=== PATIENT | male | born 1985 | race Caucasian/White ===

== ENCOUNTER 2018-01-04 16:51 | Emergency (ER) | payer BC ==
--- NOTE | 2018-01-04 17:31 | EDM.PDOC ---
ED HPI GENERAL MEDICAL PROBLEM - General Chief Complaint: Neuro Symptoms/Deficits Stated Complaint: PT HAS NECK PAIN Time Seen by Provider: 01/04/18 17:25 Source of Information: Reports: Patient - History of Present Illness INITIAL COMMENTS - FREE TEXT/NARRATIVE: HISTORY AND PHYSICAL: []32-year-old male presenting with some generalized head/scalp tingling and weakness to his hands History of Present Illness: []This is been present for the last week off and on never completely gone today has been worse some nausea off balance. Patient was seen in one of the walk-in clinics no stitches being anxiety. He does complain of some tingling to his fingers. Patient is a smoker Denies any use of street drugs on narcotics/ no energy drinks he quit 6 months ago Review of Systems: As per history of present illness and below otherwise all systems reviewed and negative. Past medical history: As per history of present illness and as reviewed below otherwise noncontributory. Surgical history: As per history of present illness and as reviewed below otherwise noncontributory. Social history: No reported history of drug or alcohol abuse. Family history: As per history of present illness and as reviewed below otherwise noncontributory. Physical exam: HEENT: Atraumatic, normocehpalic, pupils reactive, negative for conjunctival pallor or scleral icterus, mucous membranes moist, throat clear, neck supple, nontender, trachea midline. Lungs: Clear to auscultation, breath sounds equal bilaterally, chest non tender. Heart: S1S2, regular, negative for clicks, rubs, or JVD. Abdomen: Soft, nondistended, nontender. Negative for masses or hepatossplenmegaly. Negative for costovertebral tenderness. Pelvis: Stable nontender. Genitourinary: Deferred. Rectal: Deferred Extremities: Atraumatic, negative for cords or calf pain. Neurovascular unremarkable. Neuro: Awake, alert, oriented. Cranial nerves II through XII unremarkable. Cerebellum unremarkable. Motor and sensory unremarkable throughout. Exam nonfocal. Diagnostics: []The glucose Head CT Therapeutics: [] Impression: []Anxiety Plan: [] Discharge home Refer to Dr. Beverly Referred to [facility] Definitive disposition and diagnosis as appropriate pending reevaluation and review of above. Onset: Gradual Duration: Day(s):, Getting Worse Location: Reports: Generalized Severity: Mild Improves with: Reports: None Worsens with: Reports: None Associated Symptoms: Reports: No Other Symptoms - Related Data Allergies Allergy/AdvReac Type Severity Reaction Status Date / Time No Known Allergies Allergy Verified 01/04/18 17:16 Home Meds: Home Meds . [No Known Home Meds] 01/04/18 [History] Past Medical History - Past Health History Medical/Surgical History: Denies Medical/Surgical History - Infectious Disease History Infectious Disease History: Reports: Chicken Pox Social & Family History - Family History Oncologic: Reports: Leukemia - Tobacco Use Smoking Status *Q: Current Every Day Smoker Years of Tobacco use: 15 Packs/Tins Daily: 1 - Caffeine Use Caffeine Use: Reports: None - Recreational Drug Use Recreational Drug Use: No ED ROS GENERAL - Review of Systems Review Of Systems: ROS reveals no pertinent complaints other than HPI. ED EXAM, NEURO - Physical Exam Exam: See Below (See dictation) Course - Vital Signs Last Recorded V/S: Last Vital Signs Temp 36.4 C 01/04/18 17:13 Pulse 77 01/04/18 17:13 Resp 18 01/04/18 17:13 BP 133/88 01/04/18 17:13 Pulse Ox 98 01/04/18 17:13 - Orders/Labs/Meds Orders: Active Orders 24 hr Category Date Time Status Blood Glucose Check, Bedside [RC] ONETIME Care 01/04/18 17:32 Active Head wo Cont [CT] Stat Exams 01/04/18 17:32 Taken Labs: Laboratory Tests 01/04/18 01/04/18 01/04/18 Range/Units 17:41 17:41 17:41 WBC 7.11 (4.0-11.0) K/uL RBC 4.74 (4.50-5.90) M/uL Hgb 15.6 (13.0-17.0) g/dL Hct 44.1 (38.0-50.0) % MCV 93.0 (80.0-98.0) fL MCH 32.9 H (27.0-32.0) pg MCHC 35.4 (31.0-37.0) g/dL RDW Std Deviation 46.3 (28.0-62.0) fl RDW Coeff of [place] 14 (11.0-15.0) % Plt Count 239 (150-400) K/uL MPV 8.80 (7.40-12.00) fL Neut % (Auto) 59.7 (48.0-80.0) % Lymph % (Auto) 29.7 (16.0-40.0) % [place] % (Auto) 9.3 (0.0-15.0) % Eos % (Auto) 1.0 (0.0-7.0) % Baso % (Auto) 0.3 (0.0-1.5) % Neut # (Auto) 4.3 (1.4-5.7) K/uL Lymph # (Auto) 2.1 (0.6-2.4) K/uL [place] # (Auto) 0.7 (0.0-0.8) K/uL Eos # (Auto) 0.1 (0.0-0.7) K/uL Baso # (Auto) 0.0 (0.0-0.1) K/uL Nucleated RBC % 0.0 /100WBC Nucleated RBCs # 0 K/uL Sodium 142 (136-148) mmol/L Potassium 4.1 (3.5-5.1) mmol/L Chloride 103 (98-107) mmol/L Carbon Dioxide 27.7 (21.0-32.0) mmol/L BUN 14 (7.0-18.0) mg/dL Creatinine 1.1 (0.8-1.3) mg/dL Est Cr Clr Drug Dosing 101.73 mL/min Estimated GFR (MDRD) > 60.0 ml/min Glucose 124 H (74-106) mg/dL POC Glucose 130 H (60-110) mg/dL Calcium 9.4 (8.5-10.1) mg/dL Total Bilirubin 0.5 (0.2-1.0) mg/dL AST 21 (15-37) IU/L ALT 30 (14-63) IU/L Alkaline Phosphatase 84 (46-116) U/L Total Protein 7.6 (6.4-8.2) g/dL Albumin 4.3 (3.4-5.0) g/dL Globulin 3.3 (2.0-3.5) g/dL Albumin/Globulin Ratio 1.3 (1.3-2.8) Amylase 32 (25-115) U/L Lipase 106 (73-393) U/L Departure - Departure Time of Disposition: 19:07 Disposition: Home, Self-Care 01 Condition: Good Clinical Impression: Anxiety, Weakness - Discharge Information Instructions: Weakness, [id number], Living With Anxiety, Generalized Anxiety Disorder, Adult Referrals: PCP,None [Primary Care Provider] - Ana M Beverly MD [Physician] - Forms: ED Department Discharge Additional Instructions: The following information is given to patients seen in the emergency department who are being discharged to home. This information is to outline your options for follow-up care. We provide all patients seen in our emergency department with a follow-up referral. The need for follow-up, as well as the timing and circumstances, are variable depending upon the specifics of your emergency department visit. If you don't have a primary care physician on staff, we will provide you with a referral. We always advise you to contact your personal physician following an emergency department visit to inform them of the circumstance of the visit and for follow-up with them and/or the need for any referrals to a consulting specialist. The emergency department will also refer you to a specialist when appropriate. This referral assures that you have the opportunity for followup care with a specialist. All of these measure are taken in an effort to provide you with optimal care, which includes your followup. Under all circumstances we always encourage you to contact your private physician who remains a resource for coordinating your care. When calling for followup care, please make the office aware that this follow-up is from your recent emergency room visit. If for any reason you are refused follow-up, please contact the [facility] emergency department at and asked to speak to the emergency department charge nurse. Follow-up with your primary care provider to be re-evaluated Referral has been made to Dr. Rush DEAN [facility] - Urology [address] [place] [address] Referral has been made to . [facility] Phone number [phone] [place] [id number] - My Orders Last 24 Hours: My Active Orders 01/04/18 17:32 Blood Glucose Check, Bedside [RC] ONETIME Head wo Cont [CT] Stat - Assessment/Plan Last 24 Hours: My Active Orders 01/04/18 17:32 Blood Glucose Check, Bedside [RC] ONETIME Head wo Cont [CT] Stat
[2018-01-04 18:33] LABS: CHLORIDE,CL 103 mmol/L (98-107); SODIUM,NA 142 mmol/L (136-148)
--- NOTE | 2018-01-05 15:30 | CT ---
EXAM DATE: 01/04/18 PATIENT'S AGE: 32 Patient: KEN YODER Facility: [place], [place] Site . Site : 1985 Study: CT Head [id number] 6:02:24 PM Ordering Physician: Doctor Gordon Final Report: HISTORY: Pain. TECHNIQUE: The head was scanned in the axial plane at 3 mm intervals without IV contrast. Reconstructed bone windows were obtained as well as sagittal and coronal reconstructions. FINDINGS: The paranasal sinuses and mastoid air cells are well aerated. The calvarium is intact. The ventricles and sulci are normal size, shape and position. No intra- axial mass, edema or midline shift is identified. No extra-axial fluid collections are seen. Dorsey white differentiation is preserved. IMPRESSION: No acute intracranial pathology or bleed. Dictated by Opal Shepherd MD @ 01/04/2018 6:23:44 PM Please note that all CT scans at this facility use dose modulation, iterative reconstruction, and/or weight-based dosing when appropriate to reduce radiation dose to as low as reasonably achievable. Dictated by: Opal Shepherd MD @ 01/04/2018 18:23:49 (Electronic Signature) Report Signed by Proxy. [facility]
== END 2018-01-04 19:24 | disposition home or self-care (01) ==
LOC: MW.ED 16:51
DX: F41.9 Anxiety disorder, unspecified (principal); R53.1 Weakness
CPT/HCPCS: 36415; 70450; 70450-26; 80053; 82150; 82962; 83690; 85025; 99284-25

== ENCOUNTER 2018-11-27 06:56 | Emergency (ER) | payer SELFPAY ==
[2018-11-27] MEDS ORDERED: Ibuprofen 800 MG Tab PO ONE (07:15)
--- NOTE | 2018-11-27 08:06 | CR ---
INDICATION: Punching injury. Hand swelling. COMPARISON: none TECHNIQUE: Three-view right hand FINDINGS: The bones are anatomically aligned. There is no evidence of fracture, erosion or intrinsic bone lesion. There is mild joint space narrowing within the interphalangeal joints of the fingers. The soft tissues appear normal. IMPRESSION: No fracture identified. Dictated by Job Maki MD @ Nov 27 2018 8:03AM Signed by Dr. Job Maki @ Nov 27 2018 8:04AM
--- NOTE | 2018-11-27 08:17 | EDM.PDOC ---
ED HPI GENERAL MEDICAL PROBLEM - General Chief Complaint: Upper Extremity Injury/Pain Stated Complaint: SWOLLEN RIGHT HAND Time Seen by Provider: 11/27/18 07:08 Source of Information: Reports: Patient History Limitations: Reports: No Limitations - History of Present Illness INITIAL COMMENTS - FREE TEXT/NARRATIVE: History of present illness: []Patient was punching a punching bag 2 days ago and developed right hand swelling. Review of systems: As per history of present illness and below otherwise all systems reviewed and negative. Past medical history: As per history of present illness and as reviewed below otherwise noncontributory. Surgical history: As per history of present illness and as reviewed below otherwise noncontributory. Social history: No reported history of drug or alcohol abuse. Family history: As per history of present illness and as reviewed below otherwise noncontributory. Physical exam: General: Well developed, well nourished in NAD HEENT: Atraumatic, normocephalic, pupils reactive, negative for conjunctival pallor or scleral icterus, mucous membranes moist, throat clear, neck supple, nontender, trachea midline. Lungs: Clear to auscultation, breath sounds equal bilaterally, chest nontender. Heart: S1S2, regular, negative for clicks, rubs, or JVD. Abdomen: NABS, Soft, nondistended, nontender. Negative for masses or hepatosplenomegaly. Negative for costovertebral tenderness. Pelvis: Stable nontender. Genitourinary: Deferred. Rectal: Deferred. Extremities: Right dorsal hand with swelling and mild erythema that does not spread proximally. Moves all fingers and sensation is intact., negative for cords or calf pain. Neurovascular unremarkable. Neuro: Awake, alert, oriented. Cranial nerves II through XII unremarkable. Cerebellum unremarkable. Motor and sensory unremarkable throughout. Exam nonfocal. Skin:warm and dry Diagnostics: X-ray hand no fracture Therapeutics: Ibuprofen for pain ED Course: Unremarkable Impression: Right hand contusion Prescriptions: None Plan: Ibuprofen, ice, elevation and follow up with primary care as needed. Return to ER if symptoms worsen or change. Definitive disposition and diagnosis as appropriate pending reevaluation and review of above. right hand Pain Score (Numeric/FACES): 5 - Related Data Allergies Allergy/AdvReac Type Severity Reaction Status Date / Time No Known Allergies Allergy Verified 11/27/18 07:12 Home Meds: Home Meds . [No Known Home Meds] 01/04/18 [History] Past Medical History - Past Health History Medical/Surgical History: Denies Medical/Surgical History Cardiovascular History: Reports: None Respiratory History: Reports: None Gastrointestinal History: Reports: None Genitourinary History: Reports: None Musculoskeletal History: Reports: None Neurological History: Reports: None Psychiatric History: Reports: None Endocrine/Metabolic History: Reports: None Dermatologic History: Reports: None - Infectious Disease History Infectious Disease History: Reports: None Social & Family History - Family History Family Medical History: Noncontributory Oncologic: Reports: Leukemia - Tobacco Use Smoking Status *Q: Current Every Day Smoker Years of Tobacco use: 20 Packs/Tins Daily: 1 - Caffeine Use Caffeine Use: Reports: None - Recreational Drug Use Recreational Drug Use: No Review of Systems - Review of Systems Review Of Systems: ROS reveals no pertinent complaints other than HPI. ED EXAM, GENERAL - Physical Exam Exam: See Below (See history of present illness) Course - Vital Signs Last Recorded V/S: Last Vital Signs Temp 97.8 F 11/27/18 08:27 Pulse 82 11/27/18 08:27 Resp 18 11/27/18 08:27 BP 140/80 11/27/18 08:27 Pulse Ox 95 11/27/18 08:27 - Orders/Labs/Meds Meds: Medications Discontinued Medications Generic Name Dose Route Start Last Admin Trade Name Kim PRN Reason Stop Dose Admin Ibuprofen 800 mg 11/27/18 07:15 11/27/18 07:20 Motrin PO 11/27/18 07:16 800 mg ONETIME ONE Administration Departure - Departure Time of Disposition: 08:15 Disposition: Home, Self-Care 01 Condition: Good Clinical Impression: Contusion of right hand Qualifiers: Encounter type: initial encounter Qualified Code(s): S60.221A - Contusion of right hand, initial encounter - Discharge Information *PRESCRIPTION DRUG MONITORING PROGRAM REVIEWED*: No *COPY OF PRESCRIPTION DRUG MONITORING REPORT IN PATIENT TONY: No Instructions: Hand Contusion Referrals: PCP,None [Primary Care Provider] - Forms: ED Department Discharge Additional Instructions: The following information is given to patients seen in the emergency department who are being discharged to home. This information is to outline your options for follow-up care. We provide all patients seen in our emergency department with a follow-up referral. The need for follow-up, as well as the timing and circumstances, are variable depending upon the specifics of your emergency department visit. If you don't have a primary care physician on staff, we will provide you with a referral. We always advise you to contact your personal physician following an emergency department visit to inform them of the circumstance of the visit and for follow-up with them and/or the need for any referrals to a consulting specialist. The emergency department will also refer you to a specialist when appropriate. This referral assures that you have the opportunity for follow-up care with a specialist. All of these measure are taken in an effort to provide you with optimal care, which includes your follow-up. Under all circumstances we always encourage you to contact your private physician who remains a resource for coordinating your care. When calling for follow-up care, please make the office aware that this follow-up is from your recent emergency room visit. If for any reason you are refused follow-up, please contact the [facility] Emergency Department at and asked to speak to the emergency department charge nurse. Elevate hand above the level of your heart as much as possible, ice and ibuprofen for pain and swelling, follow up with primary if no improvement. Return if symptoms worsen. [facility] [address] [place] [phone]
== END 2018-11-27 08:35 | disposition home or self-care (01) ==
LOC: MW.ED 06:56
DX: S60.221A Contusion of right hand, initial encounter (principal); F17.210 Nicotine dependence, cigarettes, uncomplicated; W22.8XXA Striking against or struck by other objects, initial encounter
CPT/HCPCS: 73130; 99283; A9270

== ENCOUNTER 2019-01-08 15:12 | Emergency (ER) | payer SELFPAY ==
[2019-01-08] MEDS ORDERED: Ibuprofen 800 MG Tab PO ONE (15:43)
--- NOTE | 2019-01-08 15:46 | EDM.PDOC ---
ED HPI GENERAL MEDICAL PROBLEM - General Chief Complaint: General Stated Complaint: feeling "stiff" Time Seen by Provider: 01/08/19 15:13 Source of Information: Reports: Patient History Limitations: Reports: No Limitations - History of Present Illness INITIAL COMMENTS - FREE TEXT/NARRATIVE: History of present illness: []Patient has been off work for 2 weeks started working again today. He states that his whole body feels "stiff" and his kidneys feels stiff. He thinks his potassium dose not normal. He denies any history of abnormal potassium levels or kidney disease, he did have diarrhea 3 episodes this morning with no vomiting. Patient states he drank Alcohol this weekend but not anything unusual. Review of systems: As per history of present illness and below otherwise all systems reviewed and negative. Past medical history: As per history of present illness and as reviewed below otherwise noncontributory. Surgical history: As per history of present illness and as reviewed below otherwise noncontributory. Social history: No reported history of drug or alcohol abuse. Family history: As per history of present illness and as reviewed below otherwise noncontributory. Physical exam: General: Well developed, well nourished in NAD HEENT: Atraumatic, normocephalic, pupils reactive, negative for conjunctival pallor or scleral icterus, mucous membranes moist, throat clear, neck supple, nontender, trachea midline. Lungs: Clear to auscultation, breath sounds equal bilaterally, chest nontender. Heart: S1S2, regular, negative for clicks, rubs, or JVD. Abdomen: NABS, Soft, nondistended, nontender. Negative for masses or hepatosplenomegaly. Negative for costovertebral tenderness. Pelvis: Stable nontender. Genitourinary: Deferred. Rectal: Deferred. Extremities: Atraumatic, negative for cords or calf pain. Neurovascular unremarkable. Neuro: Awake, alert, oriented. Cranial nerves II through XII unremarkable. Cerebellum unremarkable. Motor and sensory unremarkable throughout. Exam nonfocal. Skin:warm and dry Diagnostics: Chem, normal potassium Therapeutics: Ibuprofen ED Course: Stable Impression: Encounter for medical screening exam Whole body stiffness Prescriptions: None Plan: Follow-up with primary care, ibuprofen for pain Definitive disposition and diagnosis as appropriate pending reevaluation and review of above. Body Aches Pain Score (Numeric/FACES): 5 - Related Data Allergies Allergy/AdvReac Type Severity Reaction Status Date / Time No Known Allergies Allergy Verified 01/08/19 15:23 Home Meds: Home Meds . [No Known Home Meds] 01/04/18 [History] Past Medical History - Past Health History Medical/Surgical History: Denies Medical/Surgical History Cardiovascular History: Reports: None Respiratory History: Reports: None Gastrointestinal History: Reports: None Genitourinary History: Reports: None Musculoskeletal History: Reports: None Neurological History: Reports: None Psychiatric History: Reports: None Endocrine/Metabolic History: Reports: None Dermatologic History: Reports: None - Infectious Disease History Infectious Disease History: Reports: Chicken Pox Social & Family History - Family History Family Medical History: Noncontributory Oncologic: Reports: Leukemia - Tobacco Use Smoking Status *Q: Current Every Day Smoker Years of Tobacco use: 20 Packs/Tins Daily: 1 - Caffeine Use Caffeine Use: Reports: Coffee, Energy Drinks, Soda - Recreational Drug Use Recreational Drug Use: No ED ROS GENERAL - Review of Systems Review Of Systems: ROS reveals no pertinent complaints other than HPI. ED EXAM, GENERAL - Physical Exam Exam: See Below (History of present illness) Course - Vital Signs Last Recorded V/S: Last Vital Signs Temp 97.7 F 01/08/19 15:23 Pulse 78 01/08/19 15:23 Resp 18 01/08/19 15:23 BP 161/88 H 01/08/19 15:23 Pulse Ox 98 01/08/19 15:23 - Orders/Labs/Meds Labs: Laboratory Tests 01/08/19 Range/Units 15:51 Sodium 139 (136-148) mmol/L Potassium 4.1 (3.5-5.1) mmol/L Chloride 102 (98-107) mmol/L Carbon Dioxide 25.1 (21.0-32.0) mmol/L BUN 9 (7.0-18.0) mg/dL Creatinine 0.9 (0.8-1.3) mg/dL Est Cr Clr Drug Dosing 123.18 mL/min Estimated GFR (MDRD) > 60.0 ml/min Glucose 111 H (74-106) mg/dL Calcium 9.2 (8.5-10.1) mg/dL Meds: Medications Discontinued Medications Generic Name Dose Route Start Last Admin Trade Name Freq PRN Reason Stop Dose Admin Ibuprofen 800 mg 01/08/19 15:43 01/08/19 15:55 Motrin PO 01/08/19 15:44 800 mg ONETIME ONE Administration Departure - Departure Time of Disposition: 16:27 Disposition: Home, Self-Care 01 Condition: Good Clinical Impression: Encounter for medical screening examination - Discharge Information *PRESCRIPTION DRUG MONITORING PROGRAM REVIEWED*: No *COPY OF PRESCRIPTION DRUG MONITORING REPORT IN PATIENT TONY: No Referrals: PCP,Unknown [Primary Care Provider] - Forms: ED Department Discharge Additional Instructions: The following information is given to patients seen in the emergency department who are being discharged to home. This information is to outline your options for follow-up care. We provide all patients seen in our emergency department with a follow-up referral. The need for follow-up, as well as the timing and circumstances, are variable depending upon the specifics of your emergency department visit. If you don't have a primary care physician on staff, we will provide you with a referral. We always advise you to contact your personal physician following an emergency department visit to inform them of the circumstance of the visit and for follow-up with them and/or the need for any referrals to a consulting specialist. The emergency department will also refer you to a specialist when appropriate. This referral assures that you have the opportunity for follow-up care with a specialist. All of these measure are taken in an effort to provide you with optimal care, which includes your follow-up. Under all circumstances we always encourage you to contact your private physician who remains a resource for coordinating your care. When calling for follow-up care, please make the office aware that this follow-up is from your recent emergency room visit. If for any reason you are refused follow-up, please contact the [facility] Emergency Department at and asked to speak to the emergency department charge nurse. [facility] [address] [place] [phone]
[2019-01-08 16:17] LABS: CHLORIDE,CL 102 mmol/L (98-107); SODIUM,NA 139 mmol/L (136-148)
== END 2019-01-08 16:42 | disposition home or self-care (01) ==
LOC: MW.ED 15:12
DX: M25.60 Stiffness of unspecified joint, not elsewhere classified (principal)
CPT/HCPCS: 36415; 80048; 99283; A9270

== ENCOUNTER 2019-09-23 00:38 | Emergency (ER) | payer SELFPAY ==
[2019-09-23] MEDS ORDERED: Lidocaine 2% Viscous Solution 15 ML Cup PO ONE (00:59)
[2019-09-23] MEDS ORDERED: Benzocaine 20% Topical Spray UD MUCMEM ONE (00:59)
[2019-09-23] MEDS ORDERED: Ketorolac 60 MG/2 ML SDV IM ONE (01:00)
--- NOTE | 2019-09-23 01:06 | EDM.PDOC ---
ED HPI GENERAL MEDICAL PROBLEM - General Chief Complaint: General Stated Complaint: TOOTH PAIN Time Seen by Provider: 09/23/19 00:41 - History of Present Illness INITIAL COMMENTS - FREE TEXT/NARRATIVE: HISTORY AND PHYSICAL: History of present illness: Patient is a 34-year-old male who knew that he had a cavity on his right lower premolar and was waiting to get dental insurance to have it either filled or pulled and presents with 1 day of pain to the area. He says it just started and he has taken 1 dose of ibuprofen, he is not sure if it was 400 or 600 mg, and is asking that I pulled the tooth. He has not tried to connect with a local dentist and says he lives here but does not have a local dentist. He has been otherwise having no systemic issues such as fever chills posterior oropharyngeal pain swollen glands swelling to his face or any chest pain shortness of breath upper respiratory symptoms abdominal pain nausea or vomiting. Review of systems: As per history of present illness and below otherwise all systems reviewed and negative. Past medical history: As per history of present illness and as reviewed below otherwise noncontributory. Surgical history: As per history of present illness and as reviewed below otherwise noncontributory. Social history: No reported history of drug or alcohol abuse. Family history: As per history of present illness and as reviewed below otherwise noncontributory. Physical exam: General: Well-developed well-nourished man who is nontoxic and there is minimal visible swelling of the right mandibular area. He is very exaggerated in the ED and repeatedly asked me to pull the tooth. Vital signs are noted by me HEENT: Atraumatic, normocephalic, pupils reactive, negative for conjunctival pallor or scleral icterus, mucous membranes moist, throat clear, neck supple, nontender, trachea midline. There is no posterior oropharyngeal swelling or erythema no cervical adenopathy or nuchal rigidity and there is a cavity seen on the anterior aspect of the right lower premolar. There is no gross swelling of the surrounding gum or tenderness to the gumline. Lungs: Clear to auscultation, breath sounds equal bilaterally, chest nontender. Heart: S1S2, regular rate and rhythm no overt murmurs Abdomen: Soft, nondistended, nontender no active bowel sounds Pelvis: deferred Genitourinary: Deferred. Rectal: Deferred. Extremities: Atraumatic, range of motion without deficits neurovascular unremarkable. Neuro: Awake, alert, oriented. Cranial nerves II through XII unremarkable. Cerebellum unremarkable. Motor and sensory unremarkable throughout. Exam nonfocal. Diagnostics: [] Therapeutics: dental balls,, Toradol IM I discussed with the patient that we do not pull teeth here in the ED and that I will give him a list of resources for local dentist to get definitive care and treatment of this dental cavity. At this point there is no gross swelling of the gumline but I will place him on antibiotics as prophylaxis for an infection and have given him dental balls and Toradol here. I advised him that he needs to take the jsrq-dvn-swurdff Advil more regularly 600 to 800 mg every 6 -8 hours and I will give him a few Tylenol with codeine for home to tide him over as well. Impression: Pain and dental caries Definitive disposition and diagnosis as appropriate pending reevaluation and review of above. R lower wisdom Pain Score (Numeric/FACES): 10 - Related Data Allergies Allergy/AdvReac Type Severity Reaction Status Date / Time No Known Allergies Allergy Verified 09/23/19 00:57 Home Meds: Home Meds . [No Known Home Meds] 01/04/18 [History] Past Medical History - Past Health History Medical/Surgical History: Denies Medical/Surgical History Cardiovascular History: Reports: None Respiratory History: Reports: None Gastrointestinal History: Reports: None Genitourinary History: Reports: None Musculoskeletal History: Reports: None Neurological History: Reports: None Psychiatric History: Reports: None Endocrine/Metabolic History: Reports: None Dermatologic History: Reports: None - Infectious Disease History Infectious Disease History: Reports: Chicken Pox Social & Family History - Family History Family Medical History: Noncontributory Oncologic: Reports: Leukemia - Caffeine Use Caffeine Use: Reports: Coffee, Energy Drinks, Soda ED ROS GENERAL - Review of Systems Review Of Systems: Comprehensive ROS is negative, except as noted in HPI. ED EXAM, GENERAL - Physical Exam Exam: See Below (see Dictation) Course - Vital Signs Last Recorded V/S: Last Vital Signs Temp 35.9 C 09/23/19 00:50 Pulse 89 09/23/19 00:50 Resp 18 09/23/19 00:50 BP 115/68 09/23/19 00:50 Pulse Ox 98 09/23/19 00:50 - Orders/Labs/Meds Orders: Active Orders 24 hr Category Date Time Status Ketorolac [Toradol] Med 09/23/19 01:00 Once 60 mg IM ONETIME ONE Medication Orders Ketorolac Tromethamine (Toradol) 60 mg IM ONETIME ONE Stop: 09/23/19 01:01 Meds: Medications Generic Name Dose Route Start Last Admin Trade Name Freq PRN Reason Stop Dose Admin Ketorolac Tromethamine 60 mg 09/23/19 01:00 Toradol IM 09/23/19 01:01 ONETIME ONE Discontinued Medications Generic Name Dose Route Start Last Admin Trade Name Freq PRN Reason Stop Dose Admin Benzocaine 2 each 09/23/19 00:59 Hurricaine One 20% MUCMEM 09/23/19 01:00 ONETIME ONE Lidocaine HCl 15 ml 09/23/19 00:59 Xylocaine 2% Viscous PO 09/23/19 01:00 ONETIME ONE Departure - Departure Time of Disposition: 01:06 Disposition: Home, Self-Care 01 Condition: Good Clinical Impression: Pain due to dental caries - Discharge Information Referrals: PCP,None [Primary Care Provider] - Additional Instructions: The following information is given to patients seen in the emergency department who are being discharged to home. This information is to outline your options for follow-up care. We provide all patients seen in our emergency department with a follow-up referral. The need for follow-up, as well as the timing and circumstances, are variable depending upon the specifics of your emergency department visit. If you don't have a primary care physician on staff, we will provide you with a referral. We always advise you to contact your personal physician following an emergency department visit to inform them of the circumstance of the visit and for follow-up with them and/or the need for any referrals to a consulting specialist. The emergency department will also refer you to a specialist when appropriate. This referral assures that you have the opportunity for followup care with a specialist. All of these measure are taken in an effort to provide you with optimal care, which includes your followup. Under all circumstances we always encourage you to contact your private physician who remains a resource for coordinating your care. When calling for followup care, please make the office aware that this follow-up is from your recent emergency room visit. If for any reason you are refused follow-up, please contact the [facility] emergency department at and ask to speak to the emergency department charge nurse. [facility] Primary care- Internal Medicine and Family [address] [address] Use ice to face for any swelling and please take the amoxicillin you have been given from [facility] for infection prevention as this tooth is susceptible to getting infected. Use [id number]-qkcxexm Motrin/ibuprofen 600 to 800 mg every 6- 8 hours and also use tmbo-nbc-[id number] Tylenol as you choose. You have also been given some Tylenol with codeine from [facility] that you can use for breakthrough pain but only take this medication when you are at home as it may make you drowsy and you should not drive a car or go to work while taking this. If you take the Tylenol with codeine do not take [id number]-[id number] Tylenol. Please connect with 1 of our local dentist using resources given to you in the emergency department to get definitive care and treatment of this problem and return to ER as needed and as discussed Sepsis Event Note - Evaluation Sepsis Screening Result: No Definite Risk - Focused Exam Vital Signs: Vital Signs Temp Pulse Resp BP Pulse Ox 09/23/19 00:50 35.9 C 89 18 115/68 98 Date Exam was Performed: 09/23/19 Time Exam was Performed: 01:01 - My Orders Last 24 Hours: My Active Orders 09/23/19 01:00 Ketorolac [Toradol] 60 mg IM ONETIME ONE - Assessment/Plan Last 24 Hours: My Active Orders 09/23/19 01:00 Ketorolac [Toradol] 60 mg IM ONETIME ONE
== END 2019-09-23 01:43 | disposition home or self-care (01) ==
LOC: MW.ED 00:38
DX: K02.9 Dental caries, unspecified (principal)
CPT/HCPCS: 96372; 99283; A9270; J1885

== ENCOUNTER 2019-10-31 03:54 | Emergency (ER) | payer SELFPAY ==
[2019-10-31] MEDS ORDERED: Ondansetron 4 MG Tab.DIS PO ONE (04:15)
--- NOTE | 2019-10-31 04:35 | EDM.PDOC ---
ED HPI GENERAL MEDICAL PROBLEM - General Chief Complaint: Gastrointestinal Problem Stated Complaint: VOMITING Time Seen by Provider: 10/31/19 04:20 Source of Information: Reports: Patient, Significant Other - History of Present Illness INITIAL COMMENTS - FREE TEXT/NARRATIVE: The patient is a healthy 34-year-old male who presents to the ER for nausea and vomiting. He has been throwing up for almost 10 straight hours. No diarrhea, no fevers, no hematemesis, no syncope or near syncope, no abdominal pain or any other acute complaints. Upper Abdomen Pain Score (Numeric/FACES): 10 - Related Data Allergies Allergy/AdvReac Type Severity Reaction Status Date / Time No Known Allergies Allergy Verified 10/31/19 04:06 Home Meds: Home Meds . [No Known Home Meds] 01/04/18 [History] Past Medical History - Past Health History Medical/Surgical History: Denies Medical/Surgical History Cardiovascular History: Reports: None Respiratory History: Reports: None Gastrointestinal History: Reports: None Genitourinary History: Reports: None Musculoskeletal History: Reports: None Neurological History: Reports: None Psychiatric History: Reports: None Endocrine/Metabolic History: Reports: None Dermatologic History: Reports: None - Infectious Disease History Infectious Disease History: Reports: Chicken Pox - Past Surgical History Other GI Surgeries/Procedures: vomiting blood tonight 10/31/19 Social & Family History - Family History Family Medical History: Noncontributory Oncologic: Reports: Leukemia - Tobacco Use Smoking Status *Q: Current Every Day Smoker Years of Tobacco use: 20 Packs/Tins Daily: 1 - Caffeine Use Caffeine Use: Reports: Coffee, Energy Drinks, Soda - Alcohol Use Days Per Week of Alcohol Use: 7 Number of Drinks Per Day: 2 Total Drinks Per Week: 14 - Recreational Drug Use Recreational Drug Use: No ED ROS GENERAL - Review of Systems Review Of Systems: See Below (Positive for nausea vomiting, negative for abdominal pain, negative for diarrhea, negative for fevers, negative for chills , all other Positives and pertinent negatives as per HPI. All other pertinent systems were reviewed and are negative) ED EXAM, GI/ABD - Physical Exam Exam: See Below Text/Narrative:: Constitutional: Smells of alcohol, Nontoxic but looks like he does not feel well as he is retching into a bag HEENT: Normocephalic, Atraumatic, PERRL, EOMI Neck: Normal range of motion, No stridor, trachea midline Respiratory: No respiratory distress, No tachypnea Cardiovascular: Deferred Gastrointestinal: Abdomen is soft and nontender Genital / Urinary: Deferred Musculoskeletal: All four extremities present and atraumatic Back: FROM Integument: Warm, Dry, Color is ethnicity appropriate, No rash. Neuro: Alert, Awake, No focal deficits noted Psych: Affect, Judgement, mood normal Course - Vital Signs Text/Narrative:: The patient was given a Zofran ODT tablet but he was unable to keep it in his mouth as he kept retching so he was given Zofran 8 mg IM. The patient is not feeling well but he has not vomited since he received Zofran and has kept down some fluid so he will be discharged with a prescription. Last Recorded V/S: Last Vital Signs Temp 36.2 C 10/31/19 04:01 Pulse 73 10/31/19 05:05 Resp 19 10/31/19 05:05 BP 128/85 10/31/19 05:05 Pulse Ox 96 10/31/19 05:05 - Orders/Labs/Meds Meds: Medications Discontinued Medications Generic Name Dose Route Start Last Admin Trade Name Freq PRN Reason Stop Dose Admin Ondansetron HCl 4 mg 10/31/19 04:15 10/31/19 04:23 Zofran Odt PO 10/31/19 04:16 4 mg ONETIME ONE Administration Ondansetron HCl 8 mg 10/31/19 04:40 10/31/19 04:44 Zofran IM 10/31/19 04:41 8 mg ONETIME ONE Administration Departure - Departure Time of Disposition: 05:25 Disposition: Home, Self-Care 01 Condition: Good Clinical Impression: Vomiting - Discharge Information *PRESCRIPTION DRUG MONITORING PROGRAM REVIEWED*: Not Applicable *COPY OF PRESCRIPTION DRUG MONITORING REPORT IN PATIENT TONY: Not Applicable Instructions: Nausea and Vomiting, Adult, [id number] Referrals: PCP,None [Primary Care Provider] - Forms: ED Department Discharge Sepsis Event Note - Evaluation Sepsis Screening Result: No Definite Risk - Focused Exam Vital Signs: Vital Signs Temp Pulse Resp BP Pulse Ox 10/31/19 05:05 73 19 128/85 96 10/31/19 04:01 36.2 C 90 18 137/80 98 Date Exam was Performed: 10/31/19 Time Exam was Performed: 05:07
[2019-10-31] MEDS ORDERED: Ondansetron 4 MG/2 ML SDV IM ONE (04:40)
[2019-10-31] MEDS ORDERED: CEFTRIAXONE IM ONE (04:44)
[2019-10-31] MEDS ORDERED: LIDOCAINE 1% IM ONE (04:44)
== END 2019-10-31 05:33 | disposition home or self-care (01) ==
LOC: MW.ED 03:54
DX: R11.2 Nausea with vomiting, unspecified (principal); F17.210 Nicotine dependence, cigarettes, uncomplicated
CPT/HCPCS: 96372; 99283; A9270; J2405

== ENCOUNTER 2019-10-31 09:09 | Emergency (ER) | payer SELFPAY ==
--- NOTE | 2019-10-31 09:36 | EDM.PDOC ---
ED [facility] GENERAL MEDICAL PROBLEM - General Chief Complaint: General Stated Complaint: DEHYDRATED Time Seen by Provider: 10/31/19 09:17 - History of Present Illness INITIAL COMMENTS - FREE TEXT/NARRATIVE: HPI 34-year-old male presents complaining of dehydration, patient reports he drink heavily yesterday, vomited throughout the day, and had resolution symptoms after in ED evaluation during which he received Zofran, patient is now taking PO and producing urine at near baseline. No fevers, chills, continues pass flatus and stool at baseline. No abdominal pain. No history of complications from alcohol withdrawal. Patient reports poorly characterized mild diffuse MSK type stiffness. No focal complaints. M/S/F/SocHx notable for: please see HPI; remainder reviewed with patient and in chart. ROS: Negative constitutional, eye, cardiovascular, pulmonary, GI, , MSK, skin , neurologic, psychiatric, endocrine unless noted in the HPI. Exam HR 79, RR 16, BP 142/86, T 36.6C, SaO2 97% on room air. Gen: Pleasant, non-toxic appearing, resting comfortably. HEENT: NC, AT, PEERL, EOMI. Oropharynx visually normal, moist mucous membranes. Resp: Clear to auscultation bilaterally, normal work of breathing, no accessory muscle usage. Card: Regular rate and rhythm with no murmurs, rubs, or gallops, extremities warm and well perfused. GI: Non-tender to palpation throughout all quadrants, no focal tenderness at McBurney's point, negative Price's sign, non-distended, no rebound or guarding. : No suprapubic tenderness to palpation. MSK: No visible deformities, strength and tone without visually appreciable deficit. Comfortably ambulatory without discernible abnormalities. Skin: Normal color with no visible lesions. Normal turgor. Neuro: alert and oriented 3, no facial asymmetry, vision and hearing WNL. Psych: markedly unusual mood and affect. MDM Previous chart, nursing note, labs, imaging, and vitals reviewed. A: 34-year-old male presents complaining of dehydration, patient reports he drink heavily yesterday, vomited throughout the day, and had resolution symptoms after in ED evaluation during which he received Zofran, patient is now taking PO and producing urine at near baseline. DDx: dehydration, electrolyte abnormalities, alcohol withdrawal, anxiety. Evaluation: patient well-appearing, clinically euvolemic on exam, and vitals WNL. Given the lack of medical comorbidities, short - and apparently self- limited - period of emesis yesterday, laboratory studies are not presently indicated. Recommend ongoing PO intake. No features suggestive of clinically significant alcohol withdrawal. Patient appears markedly anxious, this may be contributing to his concerns regarding dehydration. No features on exam to suggest complications such as Boorehaves syndrome. Abdominal exam benign. No evidence of obstruction or surgical intrabdominal process. Given the patients overall appearance, clinical trajectory, and vital signs, there is no evidence of occult bacteremia/sepsis. Patient discharged with instructions to remain well hydrated, avoid alcohol consumption, and follow-up with his PCP. Impression: nausea and vomiting. - Related Data Allergies Allergy/AdvReac Type Severity Reaction Status Date / Time No Known Allergies Allergy Verified 10/31/19 09:17 Home Meds: Home Meds . [No Known Home Meds] 01/04/18 [History] Past Medical History - Past Health History Medical/Surgical History: Denies Medical/Surgical History Cardiovascular History: Reports: None Respiratory History: Reports: None Gastrointestinal History: Reports: None Genitourinary History: Reports: None Musculoskeletal History: Reports: None Neurological History: Reports: None Psychiatric History: Reports: None Endocrine/Metabolic History: Reports: None Dermatologic History: Reports: None - Infectious Disease History Infectious Disease History: Reports: Chicken Pox - Past Surgical History Other GI Surgeries/Procedures: vomiting blood tonight 10/31/19 Social & Family History - Family History Family Medical History: Noncontributory Oncologic: Reports: Leukemia - Tobacco Use Smoking Status *Q: Current Every Day Smoker Years of Tobacco use: 1 Packs/Tins Daily: 20 - Caffeine Use Caffeine Use: Reports: Coffee, Energy Drinks, Soda, Tea - Recreational Drug Use Recreational Drug Use: No ED ROS GENERAL - Review of Systems Review Of Systems: See Below ED EXAM, GENERAL - Physical Exam Exam: See Below Course - Vital Signs Last Recorded V/S: Last Vital Signs Temp 36.6 C 10/31/19 09:14 Pulse 79 10/31/19 09:14 Resp 16 10/31/19 09:14 BP 142/86 H 10/31/19 09:14 Pulse Ox 97 10/31/19 09:14 Departure - Departure Time of Disposition: 09:35 Disposition: Home, Self-Care 01 Clinical Impression: Nausea & vomiting - Discharge Information Referrals: PCP,None [Primary Care Provider] - Additional Instructions: You were in seen in the [facility] Emergency Department for evaluation of possible dehydration. No significant dehydration was noted at the time of your exam, please stay well-hydrated to produce light urine every 3-4 hours. You may to consume water, have strength catering, or Pedialyte for rehydration. Please avoid consuming alcohol. Please read and follow all of the instructions below. Please follow up with your primary care physician within 48 hours repeat evaluation further care as needed. When calling for follow-up care, please make the office aware that this follow-up is from your recent emergency room visit. If for any reason you are refused follow-up, please contact the [facility] Emergency Department at and asked to speak to the emergency department charge nurse. Your care today was limited to identifying and treating emergent medical problems only. Many people have subtle differences in their test results that require follow up with their outpatient physician(s) to correctly determine if this represents a normal variation or concerning abnormality with respect to your specific health. The care given to you today was limited to identifying and treating emergent medical problems - you need to request a copy of all of your medical records from today's visit and follow up with your outpatient physician(s) to review both today's visit and your overall health. If you have any new symptoms or if you are at all concerned about your health please return immediately to the emergency department. Prescriptions: If you are uninsured or have financial difficulties with filling your prescription(s), you may consider using a free pharmacy discount service such as [employer] ([employer]) or [employer] ([employer]). These services allow you to search for a medication on your phone (or computer) and obtain a coupon that usually has a significant discount from the list pavon at a pharmacy. Your physician as well as [facility] does not have a financial relationship with either of these services. You may also wish to speak with your physician to determine if lower cost prescriptions are possible. Obtaining primary care: 1. [facility] provides pediatrics (children), family medicine (children, adults, and some obstetrical care), and internal medicine (adults). Further specialty care is also available. Same day appointments are available. They may be contacted at [phone] and are open Tuesday through Tuesday 8 AM to 5 PM. The [facility] clinics are located at [facility], [address] [place], [place] [address]. 2. [facility] offers family medicine, internal medicine, womens health, and further specialty care. [facility] may be contacted at [phone]. [facility] is located at [address] [place], [address]. 3. If you have health insurance, please also contact your insurer for a list of accepting providers under your policy, you may contact these providers for further health care. Occupational health: Work related injuries may consider following up with [facility], . Occupational health services are located at [address] [place] [address] and are open Tuesday through Tuesday from 7: 30 am to 5:00 pm. Obstetrical and Gynecological Care: [facility], , Tuesday through Tuesday 8 AM to 5 PM. [address] [facility] [place] [address]. Eyecare: If you have an eye injury you should follow up with your acting manager or with [facility], at [phone] or [phone] , they are located at [address] [place] [address]. Dental Care Kendrick Warren DDS. [address] [facility] [place], [place]. Ph. [phone] Ed Warren DDS MS. [address] [facility] [address], [place], [place]. Ph. [phone] Kenyon Wilkins DDS. 10 08/30 [facility] [place]. Ph. [phone] Rg Benson DDS. [address] [facility] 4 [place], [place]. Ph. [phone] Marc Sales DDS PC. [address] [place] [address] [address] [place], [place]. Ph. Danya Mcdaniel DDS. [address] [facility]. Ph. [phone] [facility] Dental [facility]. [address] [place], [place]. Ph. [phone] [facility]. [address] [place] [address], [place]. Ph. [phone] [facility] [address] [place] [address]. Ph. [facility]. [address] [place] [address] [address] [place]. Ph. [facility]. [address], [place], [place]. Ph. Sepsis Event Note - Evaluation Sepsis Screening Result: No Definite Risk - Focused Exam Vital Signs: Vital Signs Temp Pulse Resp BP Pulse Ox 10/31/19 09:14 36.6 C 79 16 142/86 H 97 Date Exam was Performed: 10/31/19 Time Exam was Performed: 09:35
== END 2019-10-31 09:45 | disposition home or self-care (01) ==
LOC: MW.ED 09:09
DX: R11.2 Nausea with vomiting, unspecified (principal); F17.210 Nicotine dependence, cigarettes, uncomplicated
CPT/HCPCS: 99283

== ENCOUNTER 2019-10-31 13:06 | Emergency (ER) | payer SELFPAY ==
[2019-10-31] MEDS ORDERED: Sodium Chloride 0.9% 1,000 ML IV ONE (13:29)
[2019-10-31] MEDS ORDERED: Ketorolac 30 MG/ML SDV IVPUSH ONE (13:29)
--- NOTE | 2019-10-31 13:54 | EDM.PDOC ---
ED [facility] GENERAL MEDICAL PROBLEM - General Chief Complaint: Abdominal Pain Stated Complaint: ABDOMINAL PAIN Time Seen by Provider: 10/31/19 13:16 - History of Present Illness INITIAL COMMENTS - FREE TEXT/NARRATIVE: HPI 34-year-old male with no known pertinent past medical history presents complaining of muscle aches and myalgias that have not gone away since his prior ED visit earlier today. Patient denies taking any medications, and prior hospitalizations, or any known medical history. Patient is unable to further elaborate on his symptomatology. No recent apparent illnesses, injuries, or further abnormalities. M/S/F/SocHx notable for: please see HPI; remainder reviewed with patient and in chart. ROS: Negative constitutional, eye, cardiovascular, pulmonary, GI, , MSK, skin , neurologic, psychiatric, endocrine unless noted in the HPI. Exam HR 79, RR 16, BP 156/90, T 36.4C, SaO2 98% on room air. Gen: Pleasant, non-toxic appearing, resting comfortably. HEENT: NC, AT, PEERL, EOMI. Resp: unlabored respirations with a normal work of breathing. Card: extremities warm and well perfused. GI: nondistended. : No suprapubic tenderness to palpation. MSK: No visible deformities, strength and tone without visually appreciable deficit. Skin: Normal color with no visible lesions. Neuro: alert and oriented 3, no facial asymmetry, vision and hearing WNL. Psych: guarded, markedly unusual mood and affect. Labs / Imaging: pending. MDM Previous chart, nursing note, labs, imaging, and vitals reviewed. A: 34-year-old male with no known pertinent past medical history presents complaining of muscle aches and myalgias that have not gone away since his prior ED visit earlier today. DDx: dehydration, electrolyte abnormality, rhabdomyolysis, myositis, alcohol withdraw, drug ingestion/withdrawal, influenza. Evaluation: patient declined a blood draw for laboratory studies as well as an IV for Toradol or fluids. Patient declined any further evaluation and simply requested a pill to relax me. The indications for further investigation or reviewed with the patient, history re-obtained (consistent with the initial history), and the risks and benefits were explained to the patient, the patient made an informed decision to decline further evaluation and was discharged against medical advice. Impression: muscle aches. epigastrum Pain Score (Numeric/FACES): 5 - Related Data Allergies Allergy/AdvReac Type Severity Reaction Status Date / Time No Known Allergies Allergy Verified 10/31/19 13:16 Home Meds: Home Meds . [No Known Home Meds] 01/04/18 [History] Past Medical History - Past Health History Medical/Surgical History: Denies Medical/Surgical History Cardiovascular History: Reports: None Respiratory History: Reports: None Gastrointestinal History: Reports: None Genitourinary History: Reports: None Musculoskeletal History: Reports: None Neurological History: Reports: None Psychiatric History: Reports: None Endocrine/Metabolic History: Reports: None Dermatologic History: Reports: None - Infectious Disease History Infectious Disease History: Reports: Chicken Pox - Past Surgical History Other GI Surgeries/Procedures: vomiting blood tonight 10/31/19 Social & Family History - Family History Family Medical History: Noncontributory Oncologic: Reports: Leukemia - Tobacco Use Smoking Status *Q: Current Every Day Smoker Years of Tobacco use: 20 Packs/Tins Daily: 1 - Caffeine Use Caffeine Use: Reports: Coffee, Energy Drinks, Soda, Tea - Recreational Drug Use Recreational Drug Use: No ED ROS GENERAL - Review of Systems Review Of Systems: See Below ED EXAM, GENERAL - Physical Exam Exam: See Below Course - Vital Signs Last Recorded V/S: Last Vital Signs Temp 36.4 C 10/31/19 13:14 Pulse 79 10/31/19 13:14 Resp 16 10/31/19 13:14 BP 156/90 H 10/31/19 13:14 Pulse Ox 98 10/31/19 13:14 - Orders/Labs/Meds Orders: Active Orders 24 hr Category Date Time Status Chest 1V Frontal [CR] Stat Exams 10/31/19 13:29 Ordered CBC WITH AUTO DIFF [HEME] Stat Lab 10/31/19 13:29 Ordered COMPREHENSIVE METABOLIC PN,CMP [CHEM] Stat Lab 10/31/19 13:29 Ordered CREATINE KINASE,CK [CHEM] Stat Lab 10/31/19 13:29 Ordered CRP [C-REACTIVE PROTEIN] [CHEM] Stat Lab 10/31/19 13:29 Ordered DRUG SCREEN, URINE [URCHEM] Stat Lab 10/31/19 13:29 Ordered ETHANOL BLOOD MEDICAL [CHEM] Stat Lab 10/31/19 13:29 Ordered INFLUENZA A+B AG SCREEN [RM] Stat Lab 10/31/19 13:29 Ordered MAGNESIUM [CHEM] Stat Lab 10/31/19 13:29 Ordered SEDIMENTATION RATE AUTO [HEME] Stat Lab 10/31/19 13:29 Ordered Sodium Chloride 0.9% [Normal Saline] 1,000 ml Med 10/31/19 13:29 Active IV .Bolus Medication Orders Sodium Chloride (Normal Saline) 1,000 mls @ 1,000 mls/hr IV .Bolus ONE Stop: 10/31/19 14:28 Meds: Medications Generic Name Dose Route Start Last Admin Trade Name Freq PRN Reason Stop Dose Admin Sodium Chloride 1,000 mls @ 1,000 mls/hr 10/31/19 13:29 Normal Saline IV 10/31/19 14:28 .Bolus ONE Discontinued Medications Generic Name Dose Route Start Last Admin Trade Name Freq PRN Reason Stop Dose Admin Ketorolac Tromethamine 30 mg 10/31/19 13:29 Toradol IVPUSH 10/31/19 13:30 ONETIME ONE Departure - Departure Time of Disposition: 13:54 Disposition: Home, Self-Care 01 Clinical Impression: Muscle ache - Discharge Information Referrals: PCP,None [Primary Care Provider] - Additional Instructions: You were in seen in the [facility] Emergency Department for evaluation of muscle aches and feeling unwell. At the time of your evaluation the cause of your symptoms is unclear. While you were in the emergency department laboratory studies and further investigation were recommended. You made an informed decision to decline further evaluation. You are being discharged against medical advice. You are welcome to return to this or any other emergency department at any time for further care. Prior to being discharged, you expressed an understanding that you are risking permanent disability or from an undiagnosed or untreated emergency medical condition. You also expressed a willingness to accept this risk and assume responsibility for the results of this choice. At the time of your discharge we are concerned that you are at risk for electrolyte abnormalities, muscle breakdown, drug withdrawal, infection, or other medical processes that could lead to organ injury, failure, significant harm, permanent disability, or . We recommend remaining in the emergency department for further care. To reduce your risk, please do the following: Return immediately for any worsening of condition or any other new concerns. Read all the instructions we provided today. Continue all your medications as prescribed. Follow up with your primary care physician immediately. You are being discharged against medical advice. You are welcome to return to this or any other emergency department at any time for further care. Please read and follow all of the instructions below. Please follow up with your primary care physician immediately. When calling for follow-up care, please make the office aware that this follow-up is from your recent emergency room visit. If for any reason you are refused follow-up, please contact the [facility] Emergency Department at and asked to speak to the emergency department charge nurse. Your care today was limited to identifying and treating emergent medical problems only. Many people have subtle differences in their test results that require follow up with their outpatient physician(s) to correctly determine if this represents a normal variation or concerning abnormality with respect to your specific health. The care given to you today was limited to identifying and treating emergent medical problems - you need to request a copy of all of your medical records from today's visit and follow up with your outpatient physician(s) to review both today's visit and your overall health. If you have any new symptoms or if you are at all concerned about your health please return immediately to the emergency department. Prescriptions: If you are uninsured or have financial difficulties with filling your prescription(s), you may consider using a free pharmacy discount service such as [employer] ([employer]) or [employer] (Ask.[employer]). These services allow you to search for a medication on your phone (or computer) and obtain a coupon that usually has a significant discount from the list pavon at a pharmacy. Your physician as well as [facility] does not have a financial relationship with either of these services. You may also wish to speak with your physician to determine if lower cost prescriptions are possible. Obtaining primary care: 1. [facility] provides pediatrics (children), family medicine (children, adults, and some obstetrical care), and internal medicine (adults). Further specialty care is also available. Same day appointments are available. They may be contacted at [phone] and are open Tuesday through Tuesday 8 AM to 5 PM. The [facility] are located at [facility], [address] [place] [address]. 2. [facility] offers family medicine, internal medicine, women health, and further specialty care. [facility] may be contacted at [phone]. [facility] is located at [address] [place], [address]. 3. If you have health insurance, please also contact your insurer for a list of accepting providers under your policy, you may contact these providers for further health care. Occupational health: Work related injuries may consider following up with [facility], . Occupational health services are located at [address] [place] [address] and are open Tuesday through Tuesday from 7: 30 am to 5:00 pm. Obstetrical and Gynecological Care: [facility], , Tuesday through Tuesday 8 AM to [address] [place] [address]. Eyecare: If you have an eye injury you should follow up with your mortgage broker or with [facility], at [phone] or [phone] , they are located at [address] [place] [address]. Dental Care Kendrick Warren DDS. [address] [facility] [place], [place]. Ph. [phone] Ed Warren DDS MS. [address] [facility] [address], [place], [place]. Ph. Kenyon Wilkins DDS. [address] [place] [place]. Ph. [phone] Rg Benson DDS. [address] [facility] [address] [place], [place]. Ph. [phone] Marc Sales DDS PC. [address] [place], [place]. Ph. [phone] Danya Mcdaniel DDS. [address] [facility]. Ph. [phone] [facility]. [address], [place]. Ph. [phone] [facility]. [address] [place] [address], [place], [place]. Ph. [phone] [facility] [address] [place] [address], [place] [address]. Ph. [phone] [facility]. [address] [place] [address] [address] Kymberly NOHEMY. Ph. [facility]. [address], NOHE[place] Traylor. Ph. Sepsis Event Note - Evaluation Sepsis Screening Result: No Definite Risk - Focused Exam Vital Signs: Vital Signs Temp Pulse Resp BP Pulse Ox 10/31/19 13:14 36.4 C 79 16 156/90 H 98 Date Exam was Performed: 10/31/19 Time Exam was Performed: 13:54 - My Orders Last 24 Hours: My Active Orders 10/31/19 13:29 Chest 1V Frontal [CR] Stat CBC WITH AUTO DIFF [HEME] Stat COMPREHENSIVE METABOLIC PN,CMP [CHEM] Stat CREATINE KINASE,CK [CHEM] Stat CRP [C-REACTIVE PROTEIN] [CHEM] Stat DRUG SCREEN, URINE [URCHEM] Stat ETHANOL BLOOD MEDICAL [CHEM] Stat INFLUENZA A+B AG SCREEN [RM] Stat MAGNESIUM [CHEM] Stat SEDIMENTATION RATE AUTO [HEME] Stat Sodium Chloride 0.9% [Normal Saline] 1,000 ml IV .Bolus - Assessment/Plan Last 24 Hours: My Active Orders 10/31/19 13:29 Chest 1V Frontal [CR] Stat CBC WITH AUTO DIFF [HEME] Stat COMPREHENSIVE METABOLIC PN,CMP [CHEM] Stat CREATINE KINASE,CK [CHEM] Stat CRP [C-REACTIVE PROTEIN] [CHEM] Stat DRUG SCREEN, URINE [URCHEM] Stat ETHANOL BLOOD MEDICAL [CHEM] Stat INFLUENZA A+B AG SCREEN [RM] Stat MAGNESIUM [CHEM] Stat SEDIMENTATION RATE AUTO [HEME] Stat Sodium Chloride 0.9% [Normal Saline] 1,000 ml IV .Bolus
== END 2019-10-31 14:08 | disposition home or self-care (01) ==
LOC: MW.ED 13:06
DX: M79.10 Myalgia, unspecified site (principal); F17.210 Nicotine dependence, cigarettes, uncomplicated
CPT/HCPCS: 99283

== ENCOUNTER 2020-01-17 21:37 | Emergency (ER) | payer SELFPAY | END 2020-01-17 21:45 | disposition home or self-care (01) | LOC: MW.ED 21:37 | DX: Z53.21 Procedure and treatment not carried out due to patient leaving prior to being seen by health care provider (principal) ==

== ENCOUNTER 2020-01-17 22:06 | Emergency (ER) | payer SELFPAY ==
--- NOTE | 2020-01-17 22:34 | PCM.SN.2 ---
- Free Text/Narrative Note: This patient eloped prior to being evaluated by me. Of note, they were reportedly in triage earlier this evening and eloped from the triage waiting area prior to being roomed.
== END 2020-01-17 22:27 | disposition left against medical advice (07) ==
LOC: MW.ED 22:06
DX: Z53.21 Procedure and treatment not carried out due to patient leaving prior to being seen by health care provider (principal)

== ENCOUNTER 2020-01-18 05:55 | Emergency (ER) | payer SELFPAY ==
[2020-01-18] MEDS ORDERED: Lactated Ringers 1,000 ML IV ONE (06:23)
[2020-01-18] MEDS ORDERED: Ondansetron 4 MG/2 ML SDV IVPUSH ONE (06:23)
--- NOTE | 2020-01-18 06:28 | EDM.PDOC ---
<Gregory Luu - Last Filed: 01/18/20 07:16> ED HPI GENERAL MEDICAL PROBLEM - General Chief Complaint: Gastrointestinal Problem Stated Complaint: LIGHT-HEADED, NAUSEATED Time Seen by Provider: 01/18/20 06:20 Source of Information: Reports: Patient History Limitations: Reports: No Limitations - History of Present Illness INITIAL COMMENTS - FREE TEXT/NARRATIVE: 34-year-old male with past medical history of anxiety, alcohol abuse presenting with lightheadedness, insomnia, and nausea. He reports a 24-hour history of feeling lightheaded and feeling like he is going to blackout. Has not actually experienced syncope. States that he drinks alcohol daily and last drank about 24 hours ago. Also complains of intermittent nausea for the past 2 to 3 days, one episode of nonbloody emesis yesterday. Denies any pain including chest discomfort, denies shortness of breath, fever, or recent illness. Came in to the emergency department this morning because he was having difficulty sleeping primarily. No other complaints are voiced. - Related Data Allergies Allergy/AdvReac Type Severity Reaction Status Date / Time No Known Allergies Allergy Verified 01/18/20 06:11 Home Meds: Home Meds . [No Known Home Meds] 01/04/18 [History] Past Medical History - Past Health History Medical/Surgical History: Denies Medical/Surgical History HEENT History: Reports: None Cardiovascular History: Reports: None Respiratory History: Reports: None Gastrointestinal History: Reports: None Genitourinary History: Reports: None Musculoskeletal History: Reports: None Neurological History: Reports: None Psychiatric History: Reports: None, Anxiety Endocrine/Metabolic History: Reports: None Hematologic History: Reports: None Immunologic History: Reports: None Oncologic (Cancer) History: Reports: None Dermatologic History: Reports: None - Infectious Disease History Infectious Disease History: Reports: None - Past Surgical History Head Surgeries/Procedures: Reports: None Social & Family History - Family History Family Medical History: Noncontributory Oncologic: Reports: Leukemia - Tobacco Use Smoking Status *Q: Current Every Day Smoker Years of Tobacco use: 20 Packs/Tins Daily: 1 - Caffeine Use Caffeine Use: Reports: Coffee - Alcohol Use Alcohol Use History: Yes Alcohol Use Frequency: Binges - Recreational Drug Use Recreational Drug Use: No ED ROS GENERAL - Review of Systems Constitutional: Denies: Fever, Chills HEENT: Reports: No Symptoms Respiratory: Denies: Shortness of Breath Cardiovascular: Reports: Lightheadedness. Denies: Chest Pain, Dyspnea on Exertion, Edema, Orthopnea, PND, Syncope Endocrine: Reports: No Symptoms GI/Abdominal: Reports: Nausea, Vomiting. Denies: Abdominal Pain Musculoskeletal: Reports: No Symptoms. Denies: Neck Pain, Back Pain Skin: Reports: No Symptoms Neurological: Denies: Headache, Syncope Psychiatric: Reports: No Symptoms Hematologic/Lymphatic: Reports: No Symptoms Immunologic: Reports: No Symptoms ED EXAM, GENERAL - Physical Exam Exam: See Below Free Text/Narrative:: Vital signs reviewed. Nursing notes reviewed. Constitutional: Awake, alert, non-distressed, resting comfortably Head: Normocephalic, atraumatic Eyes: EOMI, conjunctiva normal, no discharge, no scleral icterus Ears, Nose, Throat: External ears and ears normal, moist oral mucosa Cardiovascular: 2+ radial pulse, capillary refill less than 2 seconds, no M/R/G Pulmonary: normal work of breathing, no accessory muscle use, CTABL Abdomen/GI: Soft, nontender, nondistended, no guarding or rigidity, no masses Musculoskeletal: No deformities Integumentary: Appropriate color for ethnicity, warm, dry, no pallor or jaundice , no rash Neurologic: Alert, answering questions appropriately, normal speech, no facial droop, moving all extremities well Psychiatric: Appropriate mood and affect, normal thought process EKG INTERPRETATION EKG Date: 01/18/20 Time: 06:01 Rhythm: NSR Rate (Beats/Min): 71 [place]: Normal P-Wave: Present QRS: Normal ST-T: Other (TWI in III) QT: Normal Comparison: NA - No Prior EKG Course - Vital Signs Text/Narrative:: 34 male presenting with lightheadedness and insomnia. On arrival hemodynamically stable, afebrile, well-appearing. Looks nontoxic. Twelve-lead EKG was obtained, showing no acute ischemia or ectopy. IV access was established and labs were sent off. These are pending at time of shift change. Ordered 1 L of lactated Ringer's and 4 mg IV Zofran. If laboratory work-up is unrevealing, anticipate the patient will be able to discharge home with prescriptions for medications for nausea and insomnia and primary care follow- up. Last Recorded V/S: Last Vital Signs Temp 36.3 C 01/18/20 06:08 Pulse 73 01/18/20 06:56 Resp 16 01/18/20 06:56 BP 126/85 01/18/20 06:56 Pulse Ox 98 01/18/20 06:56 - Orders/Labs/Meds Orders: Active Orders 24 hr Category Date Time Status EKG 12 Lead [EKG Documentation Completion] [RC] STAT Care 01/18/20 05:59 Active Labs: Laboratory Tests 01/18/20 01/18/20 Range/Units 06:35 06:35 WBC 9.75 (4.0-11.0) K/uL RBC 4.34 L (4.50-5.90) M/uL Hgb 13.8 (13.0-17.0) g/dL Hct 40.6 (38.0-50.0) % MCV 93.5 (80.0-98.0) fL MCH 31.8 (27.0-32.0) pg MCHC 34.0 (31.0-37.0) g/dL RDW Std Deviation 46.6 (28.0-62.0) fl RDW Coeff of [place] 14 (11.0-15.0) % Plt Count 273 (150-400) K/uL MPV 8.80 (7.40-12.00) fL Neut % (Auto) 57.9 (48.0-80.0) % Lymph % (Auto) 32.6 (16.0-40.0) % [place] % (Auto) 8.8 (0.0-15.0) % Eos % (Auto) 0.4 (0.0-7.0) % Baso % (Auto) 0.3 (0.0-1.5) % Neut # (Auto) 5.6 (1.4-5.7) K/uL Lymph # (Auto) 3.2 H (0.6-2.4) K/uL [place] # (Auto) 0.9 H (0.0-0.8) K/uL Eos # (Auto) 0.0 (0.0-0.7) K/uL Baso # (Auto) 0.0 (0.0-0.1) K/uL Nucleated RBC % 0.0 /100WBC Nucleated RBCs # 0 K/uL Sodium 138 (136-148) mmol/L Potassium 3.6 (3.5-5.1) mmol/L Chloride 102 (98-107) mmol/L Carbon Dioxide 27.6 (21.0-32.0) mmol/L BUN 9 (7.0-18.0) mg/dL Creatinine 1.0 (0.8-1.3) mg/dL Est Cr Clr Drug Dosing 109.81 mL/min Estimated GFR (MDRD) > 60.0 ml/min Glucose 107 H (74-106) mg/dL Calcium 8.6 (8.5-10.1) mg/dL Total Bilirubin 0.5 (0.2-1.0) mg/dL AST 29 (15-37) IU/L ALT 32 (14-63) IU/L Alkaline Phosphatase 82 (46-116) U/L Troponin I < 0.050 (0.000-0.056) ng/mL Total Protein 7.3 (6.4-8.2) g/dL Albumin 3.9 (3.4-5.0) g/dL Globulin 3.4 (2.6-4.0) g/dL Albumin/Globulin Ratio 1.1 (0.9-1.6) Lipase 64 L (73-393) U/L Meds: Medications Discontinued Medications Generic Name Dose Route Start Last Admin Trade Name Freq PRN Reason Stop Dose Admin Lactated Ringer's 1,000 mls @ 1,000 mls/hr 01/18/20 06:23 01/18/20 06:35 Ringers, Lactated IV 01/18/20 07:22 1,000 mls/hr .BOLUS ONE Administration Ondansetron HCl 4 mg 01/18/20 06:23 01/18/20 06:35 Zofran IVPUSH 01/18/20 06:24 4 mg ONETIME ONE Administration Departure - Departure Disposition: Home, Self-Care 01 Clinical Impression: Insomnia - Discharge Information Instructions: Nausea and Vomiting, Adult, [id number] Referrals: PCP,None [Primary Care Provider] - Forms: ED Department Discharge Additional Instructions: The following information is given to patients seen in the emergency department who are being discharged to home. This information is to outline your options for follow-up care. We provide all patients seen in our emergency department with a follow-up referral. The need for follow-up, as well as the timing and circumstances, are variable depending upon the specifics of your emergency department visit. If you don't have a primary care physician on staff, we will provide you with a referral. We always advise you to contact your personal physician following an emergency department visit to inform them of the circumstance of the visit and for follow-up with them and/or the need for any referrals to a consulting specialist. The emergency department will also refer you to a specialist when appropriate. This referral assures that you have the opportunity for follow-up care with a specialist. All of these measure are taken in an effort to provide you with optimal care, which includes your follow-up. Under all circumstances we always encourage you to contact your private physician who remains a resource for coordinating your care. When calling for follow-up care, please make the office aware that this follow-up is from your recent emergency room visit. If for any reason you are refused follow-up, please contact the [facility] Emergency Department at and asked to speak to the emergency department charge nurse. Sepsis Event Note - Evaluation Sepsis Screening Result: No Definite Risk - Focused Exam Vital Signs: Vital Signs Temp Pulse Resp BP Pulse Ox 01/18/20 06:56 73 16 126/85 98 01/18/20 06:08 36.3 C 71 17 137/89 97 Date Exam was Performed: 01/18/20 Time Exam was Performed: 07:16 <Hi Pete - Last Filed: 01/18/20 07:35> ED HPI GENERAL MEDICAL PROBLEM - History of Present Illness INITIAL COMMENTS - FREE TEXT/NARRATIVE: Patient received his signout from overnight attending. Patient was pending laboratory results. Patient's labs reviewed and did not demonstrate any significant electrolyte abnormalities. Patient EKG reviewed demonstrates slight ST elevation in V3 which appears to be early repolarization. No evidence of ischemia or arrhythmia on EKG. Patient given medication in the ER. Patient be discharged home. ED ROS GENERAL - Review of Systems Review Of Systems: See Below Departure - Departure Time of Disposition: 07:33 Sepsis Event Note - Focused Exam Date Exam was Performed: 01/18/20 Time Exam was Performed: 07:33
[2020-01-18 07:24] LABS: BLOOD UREA NITROGEN,BUN 9 mg/dL (7.0-18.0); CARBON DIOXIDE,CO2 27.6 mmol/L (21.0-32.0); CHLORIDE,CL 102 mmol/L (98-107); GLUCOSE RANDOM 107 mg/dL (74-106); LIPASE 64 U/L (73-393); POTASSIUM,K 3.6 mmol/L (3.5-5.1); SODIUM,NA 138 mmol/L (136-148)
== END 2020-01-18 07:39 | disposition home or self-care (01) ==
LOC: MW.ED 05:55
DX: G47.00 Insomnia, unspecified (principal); F17.210 Nicotine dependence, cigarettes, uncomplicated
CPT/HCPCS: 36415; 80053; 83690; 84484; 85025; 93005; 96361; 96374; 99283; J2405; J7120; 99284

== ENCOUNTER 2020-05-06 08:12 | Emergency (ER) | payer SELFPAY ==
--- NOTE | 2020-05-06 08:40 | EDM.PDOC ---
ED HPI GENERAL MEDICAL PROBLEM - General Chief Complaint: General Stated Complaint: DIZZINESS Time Seen by Provider: 05/06/20 08:27 - History of Present Illness INITIAL COMMENTS - FREE TEXT/NARRATIVE: History of present illness: Patient presents complaining of feeling tired nauseous and fatigued after a long weekend of drinking over [place]. He says he feels lightheaded and thinks he might be dehydrated he says he feels nauseous he denies abdominal pain no headache no actual vomiting no diarrhea no fevers no chills nothing seems to make it better or worse Review of systems: As per history of present illness and below otherwise all systems reviewed and negative. Past medical history: As per history of present illness and as reviewed below otherwise noncontributory. Surgical history: As per history of present illness and as reviewed below otherwise noncontributory. Social history: No reported history of drug or alcohol abuse. Family history: As per history of present illness and as reviewed below otherwise noncontributory. Physical exam: HEENT: Atraumatic, normocephalic, pupils reactive, negative for conjunctival pallor or scleral icterus, mucous membranes moist, throat clear, neck supple, nontender, trachea midline. Lungs: Clear to auscultation, breath sounds equal bilaterally, chest nontender. Heart: S1S2, regular, negative for clicks, rubs, or JVD. Abdomen: Soft, nondistended, nontender. Negative for masses or hepatosplenomegaly. Negative for costovertebral tenderness. Pelvis: Stable nontender. Genitourinary: Deferred. Rectal: Deferred. Extremities: Atraumatic, negative for cords or calf pain. Neurovascular unremarkable. Neuro: Awake, alert, oriented. Cranial nerves II through XII unremarkable. Cerebellum unremarkable. Motor and sensory unremarkable throughout. Exam nonfocal. Diagnostics: [] Therapeutics: [] Impression: Alcohol abuse [] Plan: Check a CBC and a chemistry get patient some Zofran and fluids. [] Definitive disposition and diagnosis as appropriate pending reevaluation and review of above. Abdomen Pain Score (Numeric/FACES): 4 - Related Data Allergies Allergy/AdvReac Type Severity Reaction Status Date / Time No Known Allergies Allergy Verified 05/06/20 08:21 Past Medical History - Past Health History Medical/Surgical History: Denies Medical/Surgical History HEENT History: Reports: None Cardiovascular History: Reports: None Respiratory History: Reports: None Gastrointestinal History: Reports: None Genitourinary History: Reports: None Musculoskeletal History: Reports: None Neurological History: Reports: None Psychiatric History: Reports: None, Anxiety Endocrine/Metabolic History: Reports: None Hematologic History: Reports: None Immunologic History: Reports: None Oncologic (Cancer) History: Reports: None Dermatologic History: Reports: None - Infectious Disease History Infectious Disease History: Reports: None - Past Surgical History Head Surgeries/Procedures: Reports: None Social & Family History - Family History Family Medical History: Noncontributory Oncologic: Reports: Leukemia - Tobacco Use Smoking Status *Q: Current Every Day Smoker Years of Tobacco use: 20 Packs/Tins Daily: 1 - Caffeine Use Caffeine Use: Reports: Energy Drinks Caffeine Use Comment: 1 energy drink a day - Recreational Drug Use Recreational Drug Use: No ED ROS GENERAL - Review of Systems Review Of Systems: See Below ED EXAM, GENERAL - Physical Exam Exam: See Below Course - Vital Signs Text/Narrative:: Without explanation the patient left prior to completion of service. Last Recorded V/S: Last Vital Signs Temp 35.9 C L 05/06/20 08:22 Pulse 78 05/06/20 08:22 Resp 16 05/06/20 08:22 BP 124/83 05/06/20 08:22 Pulse Ox 99 05/06/20 08:22 Departure - Departure Time of Disposition: 08:39 Disposition: Eloped 07 Condition: Good Clinical Impression: Alcohol abuse - Discharge Information *PRESCRIPTION DRUG MONITORING PROGRAM REVIEWED*: Not Applicable *COPY OF PRESCRIPTION DRUG MONITORING REPORT IN PATIENT TONY: Not Applicable Instructions: Alcohol Use Disorder Referrals: PCP,None [Primary Care Provider] - Additional Instructions: The following information is given to patients seen in the emergency department who are being discharged to home. This information is to outline your options for follow-up care. We provide all patients seen in our emergency department with a follow-up referral. The need for follow-up, as well as the timing and circumstances, are variable depending upon the specifics of your emergency department visit. If you don't have a primary care physician on staff, we will provide you with a referral. We always advise you to contact your personal physician following an emergency department visit to inform them of the circumstance of the visit and for follow-up with them and/or the need for any referrals to a consulting specialist. The emergency department will also refer you to a specialist when appropriate. This referral assures that you have the opportunity for follow-up care with a specialist. All of these measure are taken in an effort to provide you with optimal care, which includes your follow-up. Under all circumstances we always encourage you to contact your private physician who remains a resource for coordinating your care. When calling for follow-up care, please make the office aware that this follow-up is from your recent emergency room visit. If for any reason you are refused follow-up, please contact the [facility] Emergency Department at and asked to speak to the emergency department charge nurse. [facility] - Primary Care [address] [place] [id number] [facility] [address] [place] [id number] Sepsis Event Note (ED) - Evaluation Sepsis Screening Result: No Definite Risk - Focused Exam Vital Signs: Vital Signs Temp Pulse Resp BP Pulse Ox 05/06/20 08:22 35.9 C L 78 16 124/83 99
== END 2020-05-06 08:40 | disposition left against medical advice (07) ==
LOC: MW.ED 08:12
DX: F10.10 Alcohol abuse, uncomplicated (principal); F17.210 Nicotine dependence, cigarettes, uncomplicated
CPT/HCPCS: 99282; 99283

== ENCOUNTER 2020-05-06 11:19 | Emergency (ER) | payer SELFPAY ==
[2020-05-06] MEDS ORDERED: Sodium Chloride 0.9% 2.5 ML Syringe FLUSH PRN ×2 (11:22)
[2020-05-06] MEDS ORDERED: Sodium Chloride 0.9% 1,000 ML IV ONE (11:22)
[2020-05-06] MEDS ORDERED: Ondansetron 4 MG/2 ML SDV IVPUSH ONE (11:22)
[2020-05-06] MEDS ORDERED: Sodium Chloride 0.9% 10 ML Syringe FLUSH PRN (11:22)
[2020-05-06] MEDS ORDERED: Famotidine 20 MG/2 ML SDV IVPUSH ONE (11:23)
[2020-05-06 12:29] LABS: BLOOD UREA NITROGEN,BUN 9 mg/dL (7.0-18.0); CARBON DIOXIDE,CO2 23.5 mmol/L (21.0-32.0); CHLORIDE,CL 104 mmol/L (98-107); GLUCOSE RANDOM 107 mg/dL (74-106); LIPASE 83 U/L (73-393); POTASSIUM,K 3.7 mmol/L (3.5-5.1); SODIUM,NA 141 mmol/L (136-148)
--- NOTE | 2020-05-06 12:29 | EDM.PDOC ---
ED HPI GENERAL MEDICAL PROBLEM - General Chief Complaint: Gastrointestinal Problem Stated Complaint: VOMITING Time Seen by Provider: 05/06/20 11:22 - History of Present Illness INITIAL COMMENTS - FREE TEXT/NARRATIVE: History of present illness: [] Patient presents again at the ED about an hour and a half after he left or rather he eloped he states he went home and drank a few beers real fast and now feels worse than he did when he left. He is complaining of nausea vomiting and dizziness. Is complaining of epigastric pain he admits to drinking heavily daily as well as very heavily over the holiday weekend. He denies any injuries no fever no chills nothing seems to make it better or worse Review of systems: As per history of present illness and below otherwise all systems reviewed and negative. Past medical history: As per history of present illness and as reviewed below otherwise noncontributory. Surgical history: As per history of present illness and as reviewed below otherwise noncontributory. Social history: No reported history of drug or alcohol abuse. Family history: As per history of present illness and as reviewed below otherwise noncontributory. Physical exam: HEENT: Atraumatic, normocephalic, pupils reactive, negative for conjunctival pallor or scleral icterus, mucous membranes moist, throat clear, neck supple, nontender, trachea midline. Lungs: Clear to auscultation, breath sounds equal bilaterally, chest nontender. Heart: S1S2, regular, negative for clicks, rubs, or JVD. Abdomen: Soft, nondistended, nontender. Negative for masses or hepatosplenomegaly. Negative for costovertebral tenderness. Pelvis: Stable nontender. Genitourinary: Deferred. Rectal: Deferred. Extremities: Atraumatic, negative for cords or calf pain. Neurovascular unremarkable. Neuro: Awake, alert, oriented. Cranial nerves II through XII unremarkable. Cerebellum unremarkable. Motor and sensory unremarkable throughout. Exam nonfocal. Diagnostics: [] Therapeutics: [] Impression: Alcohol abuse nausea vomiting [] Plan: Fluids labs Zofran Pepcid reassess [] Definitive disposition and diagnosis as appropriate pending reevaluation and review of above. Abdomen Pain Score (Numeric/FACES): 10 - Related Data Allergies Allergy/AdvReac Type Severity Reaction Status Date / Time No Known Allergies Allergy Verified 05/06/20 08:21 Home Meds: Home Meds . [No Known Home Meds] 05/06/20 [History] Past Medical History - Past Health History Medical/Surgical History: Denies Medical/Surgical History HEENT History: Reports: None Cardiovascular History: Reports: None Respiratory History: Reports: None Gastrointestinal History: Reports: None Genitourinary History: Reports: None Musculoskeletal History: Reports: None Neurological History: Reports: None Psychiatric History: Reports: None, Anxiety Endocrine/Metabolic History: Reports: None Hematologic History: Reports: None Immunologic History: Reports: None Oncologic (Cancer) History: Reports: None Dermatologic History: Reports: None - Infectious Disease History Infectious Disease History: Reports: None - Past Surgical History Head Surgeries/Procedures: Reports: None Social & Family History - Family History Family Medical History: Noncontributory Oncologic: Reports: Leukemia - Caffeine Use Caffeine Use: Reports: Energy Drinks Caffeine Use Comment: 1 energy drink a day - Recreational Drug Use Recreational Drug Use: No ED ROS GENERAL - Review of Systems Review Of Systems: See Below ED EXAM, GENERAL - Physical Exam Exam: See Below Course - Vital Signs Text/Narrative:: Feeling better after medications and fluids vital signs are stable lab results are unremarkable counseled to stop drinking resources given follow-up with primary care. Last Recorded V/S: Last Vital Signs Temp 36.2 C 05/06/20 11:34 Pulse 86 05/06/20 11:34 Resp 20 05/06/20 11:34 BP 122/84 05/06/20 11:34 Pulse Ox 97 05/06/20 11:34 - Orders/Labs/Meds Orders: Active Orders 24 hr Category Date Time Status Sodium Chloride 0.9% [Saline Flush] Med 05/06/20 11:22 Active 10 ml FLUSH ASDIRECTED PRN Sodium Chloride 0.9% [Saline Flush] Med 05/06/20 11:22 Active 2.5 ml FLUSH ASDIRECTED PRN Sodium Chloride 0.9% [Saline Flush] Med 05/06/20 11:22 Active 2.5 ml FLUSH ASDIRECTED PRN Saline Lock Insert [OM.PC] Stat Oth 05/06/20 11:22 Ordered Medication Orders Sodium Chloride (Saline Flush) 2.5 ml FLUSH ASDIRECTED PRN PRN Reason: Keep Vein Open Last Admin: 05/06/20 11:54 Dose: 2.5 ml Documented by: VANITA Sodium Chloride (Saline Flush) 10 ml FLUSH ASDIRECTED PRN PRN Reason: Keep Vein Open Last Admin: 05/06/20 11:54 Dose: 10 ml Documented by: VANITA Sodium Chloride (Saline Flush) 2.5 ml FLUSH ASDIRECTED PRN PRN Reason: Keep Vein Open Last Admin: 05/06/20 11:54 Dose: 2.5 ml Documented by: VANITA Labs: Laboratory Tests 05/06/20 05/06/20 Range/Units 11:50 11:50 WBC 5.12 (4.0-11.0) K/uL RBC 4.47 L (4.50-5.90) M/uL Hgb 14.5 (13.0-17.0) g/dL Hct 42.0 (38.0-50.0) % MCV 94.0 (80.0-98.0) fL MCH 32.4 H (27.0-32.0) pg MCHC 34.5 (31.0-37.0) g/dL RDW Std Deviation 45.5 (28.0-62.0) fl RDW Coeff of [place] 13 (11.0-15.0) % Plt Count 253 (150-400) K/uL MPV 9.10 (7.40-12.00) fL Neut % (Auto) 50.2 (48.0-80.0) % Lymph % (Auto) 40.6 H (16.0-40.0) % [place] % (Auto) 7.4 (0.0-15.0) % Eos % (Auto) 1.0 (0.0-7.0) % Baso % (Auto) 0.8 (0.0-1.5) % Neut # (Auto) 2.6 (1.4-5.7) K/uL Lymph # (Auto) 2.1 (0.6-2.4) K/uL [place] # (Auto) 0.4 (0.0-0.8) K/uL Eos # (Auto) 0.1 (0.0-0.7) K/uL Baso # (Auto) 0.0 (0.0-0.1) K/uL Nucleated RBC % 0.0 /100WBC Nucleated RBCs # 0 K/uL Sodium 141 (136-148) mmol/L Potassium 3.7 (3.5-5.1) mmol/L Chloride 104 (98-107) mmol/L Carbon Dioxide 23.5 (21.0-32.0) mmol/L BUN 9 (7.0-18.0) mg/dL Creatinine 1.1 (0.8-1.3) mg/dL Est Cr Clr Drug Dosing 99.83 mL/min Estimated GFR (MDRD) > 60.0 ml/min Glucose 107 H (74-106) mg/dL Calcium 8.4 L (8.5-10.1) mg/dL Total Bilirubin 0.3 (0.2-1.0) mg/dL AST 36 (15-37) IU/L ALT 36 (14-63) IU/L Alkaline Phosphatase 82 (46-116) U/L Total Protein 7.3 (6.4-8.2) g/dL Albumin 4.1 (3.4-5.0) g/dL Globulin 3.2 (2.6-4.0) g/dL Albumin/Globulin Ratio 1.3 (0.9-1.6) Lipase 83 (73-393) U/L Meds: Medications Generic Name Dose Route Start Last Admin Trade Name Freq PRN Reason Stop Dose Admin Sodium Chloride 2.5 ml 05/06/20 11:22 05/06/20 11:54 Saline Flush FLUSH 2.5 ml ASDIRECTED PRN Administration Keep Vein Open Sodium Chloride 10 ml 05/06/20 11:22 05/06/20 11:54 Saline Flush FLUSH 10 ml ASDIRECTED PRN Administration Keep Vein Open Sodium Chloride 2.5 ml 05/06/20 11:22 05/06/20 11:54 Saline Flush FLUSH 2.5 ml ASDIRECTED PRN Administration Keep Vein Open Discontinued Medications Generic Name Dose Route Start Last Admin Trade Name Freq PRN Reason Stop Dose Admin Famotidine 20 mg 05/06/20 11:23 05/06/20 11:54 Pepcid IVPUSH 05/06/20 11:24 20 mg ONETIME ONE Administration Sodium Chloride 1,000 mls @ 999 mls/hr 05/06/20 11:22 05/06/20 11:54 Normal Saline IV 05/06/20 12:22 999 mls/hr BOLUS ONE Administration Ondansetron HCl 4 mg 05/06/20 11:22 05/06/20 11:54 Zofran IVPUSH 05/06/20 11:23 4 mg ONETIME ONE Administration Departure - Departure Time of Disposition: 12:43 Disposition: Home, Self-Care 01 Condition: Good Clinical Impression: Abdominal pain, Vomiting, Alcohol abuse - Discharge Information *PRESCRIPTION DRUG MONITORING PROGRAM REVIEWED*: Not Applicable *COPY OF PRESCRIPTION DRUG MONITORING REPORT IN PATIENT TONY: Not Applicable Instructions: Alcohol Use Disorder, Nausea and Vomiting, Adult Referrals: PCP,None [Primary Care Provider] - Forms: ED Department Discharge Additional Instructions: The following information is given to patients seen in the emergency department who are being discharged to home. This information is to outline your options for follow-up care. We provide all patients seen in our emergency department with a follow-up referral. The need for follow-up, as well as the timing and circumstances, are variable depending upon the specifics of your emergency department visit. If you don't have a primary care physician on staff, we will provide you with a referral. We always advise you to contact your personal physician following an emergency department visit to inform them of the circumstance of the visit and for follow-up with them and/or the need for any referrals to a consulting specialist. The emergency department will also refer you to a specialist when appropriate. This referral assures that you have the opportunity for follow-up care with a specialist. All of these measure are taken in an effort to provide you with optimal care, which includes your follow-up. Under all circumstances we always encourage you to contact your private physician who remains a resource for coordinating your care. When calling for follow-up care, please make the office aware that this follow-up is from your recent emergency room visit. If for any reason you are refused follow-up, please contact the [facility] Emergency Department at and asked to speak to the emergency department charge nurse. [facility] - Primary Care [address] [place] [id number] [address] Sepsis Event Note (ED) - Evaluation Sepsis Screening Result: No Definite Risk - Focused Exam Vital Signs: Vital Signs Temp Pulse Resp BP Pulse Ox 05/06/20 11:34 36.2 C 86 20 122/84 97 - My Orders Last 24 Hours: My Active Orders 05/06/20 11:22 Sodium Chloride 0.9% [Saline Flush] 10 ml FLUSH ASDIRECTED PRN Sodium Chloride 0.9% [Saline Flush] 2.5 ml FLUSH ASDIRECTED PRN Sodium Chloride 0.9% [Saline Flush] 2.5 ml FLUSH ASDIRECTED PRN Saline Lock Insert [OM.PC] Stat - Assessment/Plan Last 24 Hours: My Active Orders 05/06/20 11:22 Sodium Chloride 0.9% [Saline Flush] 10 ml FLUSH ASDIRECTED PRN Sodium Chloride 0.9% [Saline Flush] 2.5 ml FLUSH ASDIRECTED PRN Sodium Chloride 0.9% [Saline Flush] 2.5 ml FLUSH ASDIRECTED PRN Saline Lock Insert [OM.PC] Stat
== END 2020-05-06 13:17 | disposition home or self-care (01) ==
LOC: MW.ED 11:19
DX: F10.10 Alcohol abuse, uncomplicated (principal); R11.2 Nausea with vomiting, unspecified; R10.13 Epigastric pain
CPT/HCPCS: 36415; 80053; 83690; 85025; 96361; 96374; 96375; 99284; J2405; J3490; J7030

== ENCOUNTER 2020-05-07 05:46 | Emergency (ER) | payer SELFPAY ==
[2020-05-07] MEDS ORDERED: Sodium Chloride 0.9% 10 ML Syringe FLUSH PRN (06:09)
[2020-05-07] MEDS ORDERED: Sodium Chloride 0.9% 2.5 ML Syringe FLUSH PRN (06:09)
[2020-05-07] MEDS ORDERED: Sodium Chloride 0.9% 1,000 ML IV ONE (06:09)
--- NOTE | 2020-05-07 06:21 | EDM.PDOC ---
<Gregor Samuel - Last Filed: 05/07/20 06:50> ED HPI GENERAL MEDICAL PROBLEM - General Chief Complaint: General Stated Complaint: LIGHT HEADED Time Seen by Provider: 05/07/20 05:50 - History of Present Illness INITIAL COMMENTS - FREE TEXT/NARRATIVE: HISTORY AND PHYSICAL: History of present illness: This is a 34-year-old gentleman with no significant past medical history for hypertension, diabetes, liver, lung, kidney disease, abdominal or chest surgeries who presents to the ER today secondary to feeling dizzy this evening. Patient has been seen in the ED twice on May 06 for similar complaint. Patient was seen here on May 06 at approximately 8 in the morning where an evaluation was started by the ER physician and then patient eloped. Patient returned to the ER several hours later and reported to the ER physician that he went home drink several beers and started experiencing abdominal discomfort and increased dizziness so returned. Patient had reported that he felt dizzy on his prior ER evaluation and he felt it was secondary to alcohol binge during the . Today in the ER, the patient reports that he is continued to feel dizzy. Patient reports that after being discharged from the ER he went home and had several more alcoholic beverages and try to get some sleep. Patient reports that he had episodes of nausea, weakness, dizziness and was unable to sleep so came to the ER for reassessment. Patient denies any recent fevers, shakes, chills, vomiting, diarrhea, dysuria, frequency, urgency. Patient reports that he has noticed dark stools over the last 1 to 2 days. Patient denies any chest pain, shortness of breath, abdominal pain, arm pain, neck pain. Patient denies any diaphoresis or tremors. Patient has any auditory or visualizations. Patient denies any double vision or blurred vision. Patient has any slurring of speech. Patient has any focal weakness to his upper or lower extremities. Patient reports that he has been able to tolerate p.o. solids and liquids but has been feeling nauseous. Patient reports he drank at least 4 alcoholic beverages since leaving the ER. Review of systems: As per history of present illness and below otherwise all systems reviewed and negative. Past medical history: As per history of present illness and as reviewed below otherwise noncontributory. Surgical history: As per history of present illness and as reviewed below otherwise noncontributory. Social history: No reported history of drug or alcohol abuse. Family history: As per history of present illness and as reviewed below otherwise noncontributory. Physical exam: Well-developed well-nourished 34-year-old male who appears to be in no acute distress who is resting comfortably in bed. HEENT: Atraumatic, normocephalic, pupils reactive, negative for conjunctival pallor or scleral icterus, mucous membranes moist, throat clear, neck supple, nontender, trachea midline. Lungs: Clear to auscultation, breath sounds equal bilaterally, chest nontender. Heart: S1S2, regular, negative for clicks, rubs, or JVD. Abdomen: Soft, nondistended, nontender. Negative for masses or hepatosplenomegaly. Negative for costovertebral tenderness. Pelvis: Stable nontender. Genitourinary: Deferred. Rectal: Brown heme-negative stool Extremities: Atraumatic, negative for cords or calf pain. Neurovascular unremarkable. Neuro: Awake, alert, oriented x4. Cranial nerves II through XII unremarkable. Cerebellum unremarkable. Motor and sensory unremarkable throughout. Exam nonfocal. Diagnostics: Labs reviewed from yesterday. CBC, CMP, alcohol level EKG: Normal sinus rhythm heart rate of [address]-T wave abnormalities Normal axis No evidence of ST elevation NE EKG compared to EKG from January 18, 2020, no significant changes from that EKG. As interpreted by ER physician: [employer]: Normal saline solution x1 L Assessment and plan: This is a 34-year-old gentleman who has a history significant for alcohol use disorder who presents ER today complaining of dizziness. Patient was seen and evaluated in the ED yesterday twice(patient had eloped during 1 of his visits, went home drink several beers and returned) and was discharged home with a diagnosis of dehydration and abdominal pain. Patient currently is denying any abdominal pain but is feeling dizzy. Patient will have his labs repeated. Patient was complaining of dark stools however his rectal exam today is heme-negative. Patient does not exhibit any signs or symptoms of be concerning for an acute surgical abdomen. Patient reports that he was feeling dizzy when he left the ER yesterday evening, went home and drank alcohol. Patient reports he drank alcohol as he thought it might help with his dizziness. I did educate the patient on avoiding alcohol whenever he feels dizzy as this generally does not help cure the symptom. Etiology of the patient's symptoms are unclear but I suspect this is highly likely related to his alcohol use and possible dehydration. Patient's electrolytes, alcohol level, CBC will be repeated here in the ED to make sure there is no dynamic changes. Patient will be given 1 L of normal saline and will be reassessed after. Definitive disposition and diagnosis as appropriate pending reevaluation and review of above. - Related Data Allergies Allergy/AdvReac Type Severity Reaction Status Date / Time No Known Allergies Allergy Verified 05/07/20 05:59 Home Meds: Home Meds . [No Known Home Meds] 05/06/20 [History] Past Medical History - Past Health History Medical/Surgical History: Denies Medical/Surgical History HEENT History: Reports: None Cardiovascular History: Reports: None Respiratory History: Reports: None Gastrointestinal History: Reports: None Genitourinary History: Reports: None Musculoskeletal History: Reports: None Neurological History: Reports: None Psychiatric History: Reports: Anxiety Endocrine/Metabolic History: Reports: None Hematologic History: Reports: None Immunologic History: Reports: None Oncologic (Cancer) History: Reports: None Dermatologic History: Reports: None - Infectious Disease History Infectious Disease History: Reports: Chicken Pox - Past Surgical History Head Surgeries/Procedures: Reports: None Social & Family History - Family History Family Medical History: Noncontributory Oncologic: Reports: Leukemia - Tobacco Use Smoking Status *Q: Current Every Day Smoker Years of Tobacco use: 20 Packs/Tins Daily: 1 - Caffeine Use Caffeine Use: Reports: Energy Drinks Caffeine Use Comment: 1 energy drink a day - Recreational Drug Use Recreational Drug Use: No ED ROS GENERAL - Review of Systems Review Of Systems: See Below ED EXAM, GENERAL - Physical Exam Exam: See Below Departure - Departure Disposition: Home, Self-Care 01 Clinical Impression: Dehydration, Dizziness, Alcohol use disorder - Discharge Information Instructions: Alcohol Use Disorder, Dehydration, Adult, [id number], D izziness, [id number] Referrals: PCP,None [Primary Care Provider] - Forms: ED Department Discharge Additional Instructions: The following information is given to patients seen in the emergency department who are being discharged to home. This information is to outline your options for follow-up care. We provide all patients seen in our emergency department with a follow-up referral. The need for follow-up, as well as the timing and circumstances, are variable depending upon the specifics of your emergency department visit. If you don't have a primary care physician on staff, we will provide you with a referral. We always advise you to contact your personal physician following an emergency department visit to inform them of the circumstance of the visit and for follow-up with them and/or the need for any referrals to a consulting specialist. The emergency department will also refer you to a specialist when appropriate. This referral assures that you have the opportunity for follow-up care with a specialist. All of these measure are taken in an effort to provide you with optimal care, which includes your follow-up. Under all circumstances we always encourage you to contact your private physician who remains a resource for coordinating your care. When calling for follow-up care, please make the office aware that this follow-up is from your recent emergency room visit. If for any reason you are refused follow-up, please contact the [facility] Emergency Department at and asked to speak to the emergency department charge nurse. [facility] [address] [place] [id number] [address] It is imperative that you remain completely sober, drink plenty of fluids, eat a nourishing meal or take vitamin supplements, and then make an appointment with neurology to be sure that you do not have some underlying central nervous system cause of your dizziness. [facility] - Neurology Professional Building [address] [place] [address], [address] [place] [address] Sepsis Event Note (ED) - Evaluation Sepsis Screening Result: No Definite Risk <Philip Melendez - Last Filed: 05/07/20 07:59> EKG INTERPRETATION EKG Date: 05/07/20 Rhythm: NSR Rate (Beats/Min): 69 ST-T: Other (T waves in the 1 V2 and V3) QT: Normal (T waves are elevated) Comparison: No Change (No change from 01/18/2020) EKG Interpretation Comments: Pression normal for him Course - Vital Signs Text/Narrative:: 7:30 AM. The patient stands up. Romberg negative. Heel-to-toe walk pretty good but slightly unbalanced. Does not fall or even seem like he is threatened. Does feel dizzy. When I asked what the one therapeutic thing he could do to make sure he is healthy is he said stop drinking. The patient does believe he could get sober for a few days and make an appointment with neurology clinic for follow-up to see if they think an MRI is indicated because of his repeat dizziness. He is a smoker but has a negative family history of stroke or coronary vessel disease. His neurologic exam is essentially normal now. Last Recorded V/S: Last Vital Signs Temp 96.0 F L 05/07/20 05:56 Pulse 80 05/07/20 05:56 Resp 16 05/07/20 05:56 BP 121/73 05/07/20 05:56 Pulse Ox 98 05/07/20 05:56 - Orders/Labs/Meds Orders: Active Orders 24 hr Category Date Time Status EKG Documentation Completion [RC] AM Care 05/07/20 06:09 Active Encourage Fluids [Oral Fluid Challenge] [RC] ASDIRECTED Care 05/07/20 07:29 Active Sodium Chloride 0.9% [Saline Flush] Med 05/07/20 06:09 Active 10 ml FLUSH ASDIRECTED PRN Sodium Chloride 0.9% [Saline Flush] Med 05/07/20 06:09 Active 2.5 ml FLUSH ASDIRECTED PRN Saline Lock Insert [OM.PC] Stat Oth 05/07/20 06:09 Ordered Medication Orders Sodium Chloride (Saline Flush) 10 ml FLUSH ASDIRECTED PRN PRN Reason: Keep Vein Open Last Admin: 05/07/20 07:09 Dose: 10 ml Documented by: NITIN Sodium Chloride (Saline Flush) 2.5 ml FLUSH ASDIRECTED PRN PRN Reason: Keep Vein Open Last Admin: 05/07/20 07:09 Dose: 2.5 ml Documented by: NITIN Labs: Laboratory Tests 05/07/20 05/07/20 Range/Units 06:16 06:16 WBC 6.73 (4.0-11.0) K/uL RBC 4.45 L (4.50-5.90) M/uL Hgb 14.4 (13.0-17.0) g/dL Hct 42.3 (38.0-50.0) % MCV 95.1 (80.0-98.0) fL MCH 32.4 H (27.0-32.0) pg MCHC 34.0 (31.0-37.0) g/dL RDW Std Deviation 46.8 (28.0-62.0) fl RDW Coeff of [place] 13 (11.0-15.0) % Plt Count 262 (150-400) K/uL MPV 9.20 (7.40-12.00) fL Neut % (Auto) 39.3 L (48.0-80.0) % Lymph % (Auto) 48.6 H (16.0-40.0) % Ogle % (Auto) 9.5 (0.0-15.0) % Eos % (Auto) 2.2 (0.0-7.0) % Baso % (Auto) 0.4 (0.0-1.5) % Neut # (Auto) 2.6 (1.4-5.7) K/uL Lymph # (Auto) 3.3 H (0.6-2.4) K/uL Ogle # (Auto) 0.6 (0.0-0.8) K/uL Eos # (Auto) 0.2 (0.0-0.7) K/uL Baso # (Auto) 0.0 (0.0-0.1) K/uL Nucleated RBC % 0.0 /100WBC Nucleated RBCs # 0 K/uL Sodium 142 (136-148) mmol/L Potassium 3.9 (3.5-5.1) mmol/L Chloride 105 (98-107) mmol/L Carbon Dioxide 27.0 (21.0-32.0) mmol/L BUN 8 (7.0-18.0) mg/dL Creatinine 1.1 (0.8-1.3) mg/dL Est Cr Clr Drug Dosing 99.83 mL/min Estimated GFR (MDRD) > 60.0 ml/min Glucose 107 H (74-106) mg/dL Calcium 8.5 (8.5-10.1) mg/dL Total Bilirubin 0.3 (0.2-1.0) mg/dL AST 31 (15-37) IU/L ALT 35 (14-63) IU/L Alkaline Phosphatase 80 (46-116) U/L Troponin I < 0.050 (0.000-0.056) ng/mL Total Protein 7.0 (6.4-8.2) g/dL Albumin 3.9 (3.4-5.0) g/dL Globulin 3.1 (2.6-4.0) g/dL Albumin/Globulin Ratio 1.3 (0.9-1.6) Ethyl Alcohol 165 mg/dL Meds: Medications Generic Name Dose Route Start Last Admin Trade Name Freq PRN Reason Stop Dose Admin Sodium Chloride 10 ml 05/07/20 06:09 05/07/20 07:09 Saline Flush FLUSH 10 ml ASDIRECTED PRN Administration Keep Vein Open Sodium Chloride 2.5 ml 05/07/20 06:09 05/07/20 07:09 Saline Flush FLUSH 2.5 ml ASDIRECTED PRN Administration Keep Vein Open Discontinued Medications Generic Name Dose Route Start Last Admin Trade Name Freq PRN Reason Stop Dose Admin Sodium Chloride 1,000 mls @ 999 mls/hr 05/07/20 06:09 05/07/20 06:18 Normal Saline IV 05/07/20 07:09 999 mls/hr .Bolus ONE Administration Meclizine HCl 25 mg 05/07/20 07:28 05/07/20 07:38 Antivert PO 05/07/20 07:29 25 mg ONETIME ONE Administration Ondansetron HCl 4 mg 05/07/20 07:28 05/07/20 07:38 Zofran IVPUSH 05/07/20 07:29 4 mg ONETIME ONE Administration Departure - Departure Time of Disposition: 07:58 Sepsis Event Note (ED) - Focused Exam Vital Signs: Vital Signs Temp Pulse Resp BP Pulse Ox 05/07/20 05:56 96.0 F L 80 16 121/73 98 - My Orders Last 24 Hours: My Active Orders 05/07/20 07:29 Encourage Fluids [Oral Fluid Challenge] [RC] ASDIRECTED - Assessment/Plan Last 24 Hours: My Active Orders 05/07/20 07:29 Encourage Fluids [Oral Fluid Challenge] [RC] ASDIRECTED
[2020-05-07 06:52] LABS: BLOOD UREA NITROGEN,BUN 8 mg/dL (7.0-18.0); CHLORIDE,CL 105 mmol/L (98-107); GLUCOSE RANDOM 107 mg/dL (74-106); POTASSIUM,K 3.9 mmol/L (3.5-5.1); SODIUM,NA 142 mmol/L (136-148)
[2020-05-07] MEDS ORDERED: Ondansetron 4 MG/2 ML SDV IVPUSH ONE (07:28)
[2020-05-07] MEDS ORDERED: Meclizine 25 MG Tab PO ONE (07:28)
== END 2020-05-07 08:05 | disposition home or self-care (01) ==
LOC: MW.ED 05:46
DX: E86.0 Dehydration (principal); F10.99 Alcohol use, unspecified with unspecified alcohol-induced disorder; F17.210 Nicotine dependence, cigarettes, uncomplicated; I10 Essential (primary) hypertension; E11.9 Type 2 diabetes mellitus without complications
CPT/HCPCS: 36415; 80053; 80307; 84484; 85025; 93005; 96361; 96374; 99284; A9270; J2405; J7030

== ENCOUNTER 2020-05-07 08:47 | Emergency (ER) | payer SELFPAY ==
--- NOTE | 2020-05-07 09:06 | EDM.PDOC ---
ED HPI GENERAL MEDICAL PROBLEM - General Chief Complaint: General Stated Complaint: WEAKNESS Time Seen by Provider: 05/07/20 08:52 - History of Present Illness INITIAL COMMENTS - FREE TEXT/NARRATIVE: History of present illness: [] HPI complains weakness and wants to lie down. He had been discharged home but he said when he got home he could not sleep. Patient is trying to stop drinking. He had an alcohol level of 166 this morning. He was steady on his feet and discharged. He was able to walk, and walk back. He steady on his feet now. He is alert and oriented. He is not depressed. He is interested in getting sober. He also smokes. Was discharged only a couple of hours ago. Demonstrate work-up and vital signs and chemistries as well as CBC were all within normal limits. He complained of dark stool was heme-negative according to my partner. Review of systems: As per history of present illness and below otherwise all systems reviewed and negative. Past medical history: As per history of present illness and as reviewed below otherwise noncontributory. Surgical history: As per history of present illness and as reviewed below otherwise noncontributory. Social history: No reported history of drug or alcohol abuse. Family history: As per history of present illness and as reviewed below otherwise noncontributory. Physical exam: Constitutional - well developed, well-nourished and in no acute distress HEENT - normocephalic, no evidence of trauma - external nose and mouth normal - no mass in neck and no JVD - mucosae moist EYES - full EOM, PERRL, no icterus - no evidence of inflammation, injection, or drainage Respiratory - no respiratory distress, equal bilateral expansion, lungs clear to auscultation and no abnormal lung sounds Cardiovascular - Regular Rhythm with S1 and S2 appreciated and no murmur, gallop or rub. GI - abdomen soft without distension or organomegaly - normal bowel sounds - no guard or rebound Musculoskeletal no gross deformity of long bones or joints - no tenderness, swelling or edema Neurologic -my customary neurologic exam is normal. Alert and oriented times four - CN II-XII grossly intact - motor sensory and coordination symmetrically normal Psychiatric - appropriate mood and affect with normal thought content Hematologic - No petechiae or purpura - mucosa appropriate color and sclera not pale - normal nail bed color and refill Integument - no rash or evidence of trauma - normal turgor Diagnostics: [] Therapeutics: [] Impression: Nutrition dehydration and alcohol abuse [] Plan: Referred to [facility] services and neurology for follow-up. [] Definitive disposition and diagnosis as appropriate pending reevaluation and review of above. - Related Data Allergies Allergy/AdvReac Type Severity Reaction Status Date / Time No Known Allergies Allergy Verified 05/07/20 08:54 Home Meds: Home Meds . [No Known Home Meds] 05/06/20 [History] Past Medical History - Past Health History Medical/Surgical History: Denies Medical/Surgical History HEENT History: Reports: None Cardiovascular History: Reports: None Respiratory History: Reports: None Gastrointestinal History: Reports: None Genitourinary History: Reports: None Musculoskeletal History: Reports: None Neurological History: Reports: None Psychiatric History: Reports: Anxiety Endocrine/Metabolic History: Reports: None Hematologic History: Reports: None Immunologic History: Reports: None Oncologic (Cancer) History: Reports: None Dermatologic History: Reports: None - Infectious Disease History Infectious Disease History: Reports: Chicken Pox - Past Surgical History Head Surgeries/Procedures: Reports: None Social & Family History - Family History Family Medical History: Noncontributory Oncologic: Reports: Leukemia - Caffeine Use Caffeine Use: Reports: Energy Drinks Caffeine Use Comment: 1 energy drink a day ED ROS GENERAL - Review of Systems Review Of Systems: Comprehensive ROS is negative, except as noted in HPI. ED EXAM, GENERAL - Physical Exam Exam: See Below Free Text/Narrative:: Exam in the HPI section Departure - Departure Time of Disposition: 09:01 Disposition: Home, Self-Care 01 Condition: Good Clinical Impression: Dehydration, Alcohol abuse - Discharge Information Instructions: Alcohol Use Disorder, Dehydration, Adult, [id number] Referrals: PCP,None [Primary Care Provider] - Additional Instructions: Open for intake until 3 PM today [facility] Address: [address] [place] [id number] Hours: walk in 9 AM M-F The following specialist can do more tests that I can do in the emergency room in [place]. They may be able to make sure that you do not have any permanent damage central nervous system caused by alcohol and smoking.. [facility] - Neurology Professional Building [address] [place] [address], [address] [place] [address] The following information is given to patients seen in the emergency department who are being discharged to home. This information is to outline your options for follow-up care. We provide all patients seen in our emergency department with a follow-up referral. The need for follow-up, as well as the timing and circumstances, are variable depending upon the specifics of your emergency department visit. If you don't have a primary care physician on staff, we will provide you with a referral. We always advise you to contact your personal physician following an emergency department visit to inform them of the circumstance of the visit and for follow-up with them and/or the need for any referrals to a consulting specialist. The emergency department will also refer you to a specialist when appropriate. This referral assures that you have the opportunity for follow-up care with a specialist. All of these measure are taken in an effort to provide you with optimal care, which includes your follow-up. Under all circumstances we always encourage you to contact your private physician who remains a resource for coordinating your care. When calling for follow-up care, please make the office aware that this follow-up is from your recent emergency room visit. If for any reason you are refused follow-up, please contact the [facility] Emergency Department at and asked to speak to the emergency department charge nurse.
== END 2020-05-07 09:07 | disposition home or self-care (01) ==
LOC: MW.ED 08:47
DX: E86.0 Dehydration (principal); F10.10 Alcohol abuse, uncomplicated
CPT/HCPCS: 99284

== ENCOUNTER 2020-07-15 07:54 | Emergency (ER) | payer OTHER ==
[2020-07-15] MEDS ORDERED: Sodium Chloride 0.9% 10 ML Syringe FLUSH PRN (08:06)
[2020-07-15] MEDS ORDERED: Sodium Chloride 0.9% 2.5 ML Syringe FLUSH PRN (08:06)
--- NOTE | 2020-07-15 08:06 | EDM.PDOC ---
ED HPI GENERAL MEDICAL PROBLEM - General Chief Complaint: Abdominal Pain Stated Complaint: WEAK, ABDOMINAL PAIN, SEEMS TO BE SOB Time Seen by Provider: 07/15/20 08:01 Source of Information: Reports: Patient, Old Records History Limitations: Reports: No Limitations - History of Present Illness INITIAL COMMENTS - FREE TEXT/NARRATIVE: This is a very pleasant 34-year-old man with a past medical history of alcohol misuse presenting with complaints of epigastric abdominal pain, nausea, vomiting, and hematemesis. Patient reports that he drank about a 12 pack of beer yesterday, which is typical for him. He felt fine when he went to bed. This morning, around 6:00 in the morning, he woke up and began feeling nauseated. He reports 30 episodes of emesis. He states that he was initially having bloody vomit but the blood then cleared. He complains of persistent nausea and generalized weakness. Denies any fever, chest discomfort, shortness of breath, diarrhea, or bloody stools. No prior history of gastritis, peptic ulcer disease, pancreatitis, biliary disease, or liver disease including cirrhosis or hepatitis. No self treatment prior to arrival. Insert ROS: A 10-point review of systems was negative, except as noted in the HPI (or in the ROS section of this note). Past medical history: Reviewed, no additional pertinent history. Surgical history: Reviewed in system, no additional pertinent history. Social history: Reviewed in system, no additional pertinent history. Family history: Reviewed in system, no additional pertinent history. PHYSICAL EXAM Vital signs reviewed. Nursing notes reviewed. Constitutional: Awake, alert, appears uncomfortable. Head: Normocephalic, atraumatic. Eyes: EOMI, conjunctiva normal, no discharge, no scleral icterus. Ears, Nose, Throat: External ears and nose normal, moist oral mucosa. Cardiovascular: 2+ radial pulse, capillary refill less than 2 seconds. No lower extremity edema. Pulmonary: normal work of breathing, no accessory muscle use. Abdomen/GI: Soft, moderate epigastric tenderness, nondistended, no guarding or rigidity, no masses. Musculoskeletal: No deformities. Integumentary: Appropriate color for ethnicity, warm, dry, no pallor or jaundice, no rash. Neurologic: Alert, answering questions appropriately, normal speech, no facial droop, moving all extremities well. Psychiatric: Appears anxious. This patient was seen and evaluated during the 2019 SARS-CoV-2 novel coronavirus pandemic period. Community viral transmission is ongoing at time of this encounter and the emergency department is operating under pandemic response procedures. - Related Data Allergies Allergy/AdvReac Type Severity Reaction Status Date / Time No Known Allergies Allergy Verified 07/15/20 08:11 Home Meds: Home Meds . [No Known Home Meds] 05/06/20 [History] Past Medical History - Past Health History Medical/Surgical History: Denies Medical/Surgical History HEENT History: Reports: None Cardiovascular History: Reports: None Respiratory History: Reports: None Gastrointestinal History: Reports: None Genitourinary History: Reports: None Musculoskeletal History: Reports: None Neurological History: Reports: None Psychiatric History: Reports: Anxiety Endocrine/Metabolic History: Reports: None Hematologic History: Reports: None Immunologic History: Reports: None Oncologic (Cancer) History: Reports: None Dermatologic History: Reports: None - Infectious Disease History Infectious Disease History: Reports: Chicken Pox - Past Surgical History Head Surgeries/Procedures: Reports: None Social & Family History - Family History Family Medical History: No Pertinent Family History Oncologic: Reports: Leukemia - Caffeine Use Caffeine Use: Reports: Energy Drinks Caffeine Use Comment: 1 energy drink a day ED ROS GENERAL - Review of Systems Review Of Systems: See Below ED EXAM, GENERAL - Physical Exam Exam: See Below #1 Interpretation EKG Interpretation Comments: 12-Lead ECG Interpretation Acquired: 7:57 AM Rhythm: Sinus rhythm Rate: 86 bpm [place]: Normal Intervals: Normal Ectopy: None RV Strain: No obvious RV strain pattern. ST Segments/T-Waves: T wave inversions in 3 and aVF, seen previously. Large T waves in aVL, also seen previously. Acute Ischemic Changes: None apparent Interpretation: No STEMI Comparison: 05/07/2020, no significant change today. Course - Vital Signs Text/Narrative:: Patient [hemodynamically stable, afebrile], well-appearing, looks nontoxic. Differential diagnosis includes but is not limited to: Gastritis, peptic ulcer disease, Tara-Jain tear, esophagitis, pancreatitis, hepatitis, cirrhosis, biliary colic, cholecystitis, less likely acute coronary syndrome, less likely Boerhaave syndrome, and many others. 821: Patient appears uncomfortable, moderate epigastric tenderness but no guarding. Patient did report hematemesis earlier but he is not having any active vomiting at this point and I see no evidence of blood around the face or on his clothing. There is no history of melena or hematochezia. He does appear quite anxious. We are going to establish an IV, give a GI cocktail and an H2 jay, and obtain some labs. We will also obtain a CT scan of the abdomen/pe lvis to evaluate for perforated viscus, pancreatitis, or an esophageal rupture or free air. 848: Patient continues to be quite anxious and restless. He is ripping off his IV cath. He is complaining of feeling extremely weak even though he is wide- awake and does not show any signs of lethargy or significant fatigue. We are going to administer some IV haloperidol to help with the nausea and to help make him more comfortable and to facilitate a CT scan. Labs show normal cell lines, normal lactate, normal electrolytes and renal function, negative troponin, normal lipase, normal LFTs and bilirubin. 959: I am informed by the communications engineering technician that the patient refused his CT scan of the abdomen/pelvis. 1007: I reevaluated the patient the bedside. His abdominal pain is totally gone. His abdomen is soft and totally nontender. He states that he did not want to do the CT scan because he was worried about how he would feel after receiving IV contrast. He is not vomiting and was never vomiting at any point in the emergency department. He has not had any hematemesis here. He does complain of a sore throat which I am suspicious is due to his episodes of emesis prior to arrival. Since his abdominal pain has totally resolved, I do not think that we need to obtain the CT scan at this point. Given his negative work-up and well appearance, I am going to discharge him home. His vital signs have been stable and remained stable at this moment. I see no evidence of an active GI bleed. Prior to discharge, the patient did relay a history of black stools but refused digital rectal examination and guaiac testing. It looks like he had guaiac testing done in the emergency department recently and this was negative. His hemoglobin is normal today which argues against subacute or chronic GI bleed. Regarding the generalized weakness, I see no medical cause of this symptom at present. The patient is not anemic, his electrolytes look normal. His laboratory work-up looks unremarkable and his vital signs are normal. He is quite wide awake and does not look fatigued or lethargic. There is no history of recent illness. Patient is well-appearing and looks nontoxic. I see no sign that he is having an active GI bleed right now. He is comfortable and his symptoms have improved. I am going to discharge him home to follow-up in a primary medical clinic for reevaluation. We discussed [id number] Prilosec, Maalox max, and Tylenol for his abdominal pain. We also discussed sore throat lozenges, sore throat spray, and plenty of fluids to help his sore throat. At this point he is comfortable with plan of discharge home and has no further questions. Plan: Patient is stable to discharge home with outpatient primary care clinic follow-up. Strict emergency department return precautions were provided, patient indicated understanding. All questions were answered prior to departure. Discharged in good condition. Last Recorded V/S: Last Vital Signs Temp 36.7 C 07/15/20 09:15 Pulse 67 07/15/20 09:15 Resp 16 07/15/20 09:15 BP 105/63 07/15/20 09:15 Pulse Ox 98 07/15/20 09:15 - Orders/Labs/Meds Orders: Active Orders 24 hr Category Date Time Status EKG Documentation Completion [RC] STAT Care 07/15/20 08:06 Active Pulse Oximetry [RC] ASDIRECTED Care 07/15/20 08:06 Active NPO Now [Nothing per Oral Now Diet] [DIET] Diet 07/15/20 Lunch Active Abdomen Pelvis w Cont [CT] Stat Exams 07/15/20 08:15 Stop Req Sodium Chloride 0.9% [Saline Flush] Med 07/15/20 08:06 Active 10 ml FLUSH ASDIRECTED PRN Sodium Chloride 0.9% [Saline Flush] Med 07/15/20 08:06 Active 2.5 ml FLUSH ASDIRECTED PRN Saline Lock Insert [OM.PC] Stat Oth 07/15/20 08:07 Ordered Medication Orders Sodium Chloride (Saline Flush) 10 ml FLUSH ASDIRECTED PRN PRN Reason: Keep Vein Open Last Admin: 07/15/20 08:31 Dose: 10 ml Documented by: ESTIVEN Sodium Chloride (Saline Flush) 2.5 ml FLUSH ASDIRECTED PRN PRN Reason: Keep Vein Open Last Admin: 07/15/20 08:31 Dose: 2.5 ml Documented by: ESTIVEN Labs: Laboratory Tests 07/15/20 07/15/20 07/15/20 Range/Units 08:05 08:05 08:05 WBC 9.35 (4.0-11.0) K/uL RBC 4.62 (4.50-5.90) M/uL Hgb 15.0 (13.0-17.0) g/dL Hct 43.4 (38.0-50.0) % MCV 93.9 (80.0-98.0) fL MCH 32.5 H (27.0-32.0) pg MCHC 34.6 (31.0-37.0) g/dL RDW Std Deviation 45.3 (28.0-62.0) fl RDW Coeff of [place] 13 (11.0-15.0) % Plt Count 267 (150-400) K/uL MPV 9.20 (7.40-12.00) fL Neut % (Auto) 50.2 (48.0-80.0) % Lymph % (Auto) 41.6 H (16.0-40.0) % [place] % (Auto) 7.5 (0.0-15.0) % Eos % (Auto) 0.5 (0.0-7.0) % Baso % (Auto) 0.2 (0.0-1.5) % Neut # (Auto) 4.7 (1.4-5.7) K/uL Lymph # (Auto) 3.9 H (0.6-2.4) K/uL [place] # (Auto) 0.7 (0.0-0.8) K/uL Eos # (Auto) 0.1 (0.0-0.7) K/uL Baso # (Auto) 0.0 (0.0-0.1) K/uL Nucleated RBC % 0.0 /100WBC Nucleated RBCs # 0 K/uL Lactate 1.8 (0.20-2.00) mmol/L Sodium 138 (136-148) mmol/L Potassium 3.8 (3.5-5.1) mmol/L Chloride 102 (98-107) mmol/L Carbon Dioxide 26.7 (21.0-32.0) mmol/L BUN 11 (7.0-18.0) mg/dL Creatinine 1.0 (0.8-1.3) mg/dL Est Cr Clr Drug Dosing 109.81 mL/min Estimated GFR (MDRD) > 60.0 ml/min Glucose 113 H (74-106) mg/dL Calcium 8.3 L (8.5-10.1) mg/dL Total Bilirubin 0.4 (0.2-1.0) mg/dL AST 31 (15-37) IU/L ALT 39 (14-63) IU/L Alkaline Phosphatase 76 (46-116) U/L Troponin I < 0.050 (0.000-0.056) ng/mL Total Protein 7.3 (6.4-8.2) g/dL Albumin 4.0 (3.4-5.0) g/dL Globulin 3.3 (2.6-4.0) g/dL Albumin/Globulin Ratio 1.2 (0.9-1.6) Lipase 95 (73-393) U/L Meds: Medications Generic Name Dose Route Start Last Admin Trade Name Freq PRN Reason Stop Dose Admin Sodium Chloride 10 ml 07/15/20 08:06 07/15/20 08:31 Saline Flush FLUSH 10 ml ASDIRECTED PRN Administration Keep Vein Open Sodium Chloride 2.5 ml 07/15/20 08:06 07/15/20 08:31 Saline Flush FLUSH 2.5 ml ASDIRECTED PRN Administration Keep Vein Open Discontinued Medications Generic Name Dose Route Start Last Admin Trade Name Freq PRN Reason Stop Dose Admin Al Hydroxide/Mg Hydroxide 15 0 ml 07/15/20 08:14 07/15/20 08:30 ml/ Lidocaine HCl 5 ml PO 07/15/20 08:15 20 each ONETIME ONE Administration Famotidine 20 mg 07/15/20 08:14 07/15/20 08:31 Pepcid IVPUSH 07/15/20 08:15 20 mg ONETIME ONE Administration Haloperidol Lactate 5 mg 07/15/20 08:45 07/15/20 08:55 Haldol IM 07/15/20 08:46 5 mg ONETIME ONE Administration Ondansetron HCl 4 mg 07/15/20 08:14 07/15/20 08:31 Zofran IVPUSH 07/15/20 08:15 4 mg ONETIME ONE Administration Departure - Departure Time of Disposition: 10:09 Disposition: Home, Self-Care 01 Condition: Good Clinical Impression: Epigastric abdominal pain, Generalized weakness Nausea and vomiting Qualifiers: Vomiting type: unspecified Vomiting Intractability: non-intractable Qualified Code(s): R11.2 - Nausea with vomiting, unspecified - Discharge Information *PRESCRIPTION DRUG MONITORING PROGRAM REVIEWED*: Not Applicable *COPY OF PRESCRIPTION DRUG MONITORING REPORT IN PATIENT TONY: Not Applicable Instructions: Abdominal Pain, Adult, Nausea and Vomiting, Adult, [id number] Forms: ED Department Discharge Additional Instructions: You were seen in the emergency department for abdominal pain, nausea, vomiting, and reported bloody vomit. At this point your blood work, EKG, and vital signs all look reassuring. I see no evidence of serious bleeding by your blood work and we did not see any evidence of an ongoing bleed here in the emergency department. We did recommend a CT scan of your abdomen and pelvis however your pain totally went away so I do not think we need to do this at the moment. I see no obvious cause of why you are feeling weak at the moment but I also see no evidence of a dangerous condition that would need us to admit you to the hospital. I must strongly recommend that you stop drinking alcohol to the degree that you are doing at present. This is likely causing a lot of your abdominal pain along with the nausea and vomiting. Continue to drink alcohol in this amount can cause serious medical problems and . In the meantime I recommend [id number] Prilosec and Maalox Max along with Tylenol for your abdominal pain. I believe your sore throat is due to the fact that he vomited multiple times at home before coming to the ER. You can take jhso-riu-[id number] sore throat lozenges such as [place] or Ric[place], sore throat spray, and drink cold ice water to help your throat feel better. Please follow-up with the family medicine clinic here at [facility] in the next 1 to 2 weeks for reevaluation of your symptoms. Warning signs to come back to the ER include: Worsening abdominal pain, repeated bloody vomit or stools, fever, chills, chest pain, shortness of breath, or any other new or concerning symptoms. Please return the emergency department immediately if your symptoms worsen or if you feel worse. Thank you for choosing the [facility] emergency department in [place] for your medical needs today. It was a pleasure caring for you. The following information is given to patients seen in the emergency department who are being discharged. This information is to outline your options for follow-up care. We provide all patients seen in our emergency department with a follow-up referral. The need for follow-up, as well as the timing and circumstances, are variable depending upon the specifics of your emergency department visit. If you don't have a primary care physician on staff, we will provide you with a referral. We always advise you to contact your personal physician following an emergency department visit to inform them of the circumstance of the visit and for follow-up with them and/or the need for any referrals to a consulting specialist. The emergency department will also refer you to a specialist when appropriate. This referral assures that you have the opportunity for follow-up care with a specialist. All of these measure are taken in an effort to provide you with optimal care, which includes your follow-up. Under all circumstances we always encourage you to contact your private physician who remains a resource for coordinating your care. When calling for follow-up care, please make the office aware that this follow-up is from your recent emergency room visit. If for any reason you are refused follow-up, please contact the [facility] Emergency Department at and asked to speak to the emergency department charge nurse. If you do not have a primary care physician that is caring for you, you can contact these clinics below to set up an appointment to establish care: Nicol Castillo [facility] - Primary Care [address] [place] [id number] [facility] [place] [address] [place] [id number] Sepsis Event Note (ED) - Focused Exam Vital Signs: Vital Signs Temp Pulse Resp BP Pulse Ox 07/15/20 09:15 36.7 C 67 16 105/63 98 07/15/20 08:37 36.7 C 80 16 128/88 98 07/15/20 08:08 36.7 C 87 16 124/78 99 - My Orders Last 24 Hours: My Active Orders 07/15/20 08:06 EKG Documentation Completion [RC] STAT Pulse Oximetry [RC] ASDIRECTED Sodium Chloride 0.9% [Saline Flush] 10 ml FLUSH ASDIRECTED PRN Sodium Chloride 0.9% [Saline Flush] 2.5 ml FLUSH ASDIRECTED PRN 07/15/20 08:07 Saline Lock Insert [OM.PC] Stat 07/15/20 08:15 Abdomen Pelvis w Cont [CT] Stat 07/15/20 Lunch NPO Now [Nothing per Oral Now Diet] [DIET] - Assessment/Plan Last 24 Hours: My Active Orders 07/15/20 08:06 EKG Documentation Completion [RC] STAT Pulse Oximetry [RC] ASDIRECTED Sodium Chloride 0.9% [Saline Flush] 10 ml FLUSH ASDIRECTED PRN Sodium Chloride 0.9% [Saline Flush] 2.5 ml FLUSH ASDIRECTED PRN 07/15/20 08:07 Saline Lock Insert [OM.PC] Stat 07/15/20 08:15 Abdomen Pelvis w Cont [CT] Stat 07/15/20 Lunch NPO Now [Nothing per Oral Now Diet] [DIET]
[2020-07-15] MEDS ORDERED: Famotidine 20 MG/2 ML SDV IVPUSH ONE (08:14)
[2020-07-15] MEDS ORDERED: Alum Hydrox/Mag Hydrox/Simeth 15 ML, Lidocaine 2% 5 ML PO ONE ×2 (08:14)
[2020-07-15] MEDS ORDERED: Ondansetron 4 MG/2 ML SDV IVPUSH ONE (08:14)
[2020-07-15] MEDS ORDERED: Haloperidol Lactate 5 MG/ML SDV IM ONE (08:45)
[2020-07-15 08:49] LABS: BLOOD UREA NITROGEN,BUN 11 mg/dL (7.0-18.0); CARBON DIOXIDE,CO2 26.7 mmol/L (21.0-32.0); CHLORIDE,CL 102 mmol/L (98-107); GLUCOSE RANDOM 113 mg/dL (74-106); LIPASE 95 U/L (73-393); POTASSIUM,K 3.8 mmol/L (3.5-5.1); SODIUM,NA 138 mmol/L (136-148)
== END 2020-07-15 10:41 | disposition home or self-care (01) ==
LOC: MW.ED 07:54
DX: R10.13 Epigastric pain (principal); R53.1 Weakness; R11.2 Nausea with vomiting, unspecified
CPT/HCPCS: 36415; 80053; 83605; 83690; 84484; 85025; 93005; 96372; 96374; 96375; 99285; A9270; J1630; J2405; J3490; 93010; 99284

== ENCOUNTER 2020-07-16 10:32 | Emergency (ER) | payer OTHER ==
[2020-07-16] MEDS ORDERED: LORazepam 2 MG/ML SDV ONE (10:39)
[2020-07-16] MEDS ORDERED: LORazepam 2 MG/ML SDV IVPUSH ONE ×2 (10:39→13:20)
[2020-07-16] MEDS ORDERED: Sodium Chloride 0.9% 1,000 ML IV ONE ×2 (10:39→13:30)
[2020-07-16] MEDS ORDERED: LORazepam 2 MG/ML SDV IVPUSH PRN (10:40)
[2020-07-16 11:31] LABS: BLOOD UREA NITROGEN,BUN 13 mg/dL (7.0-18.0); CARBON DIOXIDE,CO2 24.6 mmol/L (21.0-32.0); CHLORIDE,CL 91 mmol/L (98-107); GLUCOSE RANDOM 120 mg/dL (74-106); LIPASE 54 U/L (73-393); POTASSIUM,K 3.3 mmol/L (3.5-5.1); SODIUM,NA 129 mmol/L (136-148)
--- NOTE | 2020-07-16 11:56 | PCM.SN.2 ---
- Free Text/Narrative Note: 12-Lead ECG Interpretation Acquired: 11:02 AM Rhythm: Sinus rhythm Rate: 73 bpm [place]: Normal Intervals: Normal Ectopy: None RV Strain: No obvious RV strain pattern. ST Segments/T-Waves: T wave inversions in III, biphasic T waves in aVF, both of these were seen on ECG yesterday 07/15/2020. Acute Ischemic Changes: None apparent Interpretation: No STEMI Compared to 07/15/2020, no significant change.
--- NOTE | 2020-07-16 12:33 | EDM.PDOC ---
ED HPI GENERAL MEDICAL PROBLEM - General Chief Complaint: Abdominal Pain Stated Complaint: UPPER MIDDLE ABDOMINAL PAIN Time Seen by Provider: 07/16/20 10:35 Source of Information: Reports: Patient History Limitations: Reports: No Limitations - History of Present Illness INITIAL COMMENTS - FREE TEXT/NARRATIVE: HISTORY AND PHYSICAL: History of present illness: Patient is a 34-year-old male who presents to the emergency room with complaints of epigastric pain, nausea, vomiting and tremors since this morning. Patient was seen in our emergency department yesterday for similar symptoms. He was fully evaluated and ultimately had declined wanting a CT of the abdomen and pelvis as he felt improved. He states he went home and had a unproductive day. He states the diarrhea stopped. When he woke up he started to have symptoms again. When asked if he had any alcohol, states he last drank 2 days ago. He has never had DT symptoms before, unsure if that is what he is experiencing. He denies any visual or auditory hallucinations. Besides the tremors he has nausea and feels slightly anxious. Patient denies any fever, chills, headache, change in vision, syncope or near syncope. Denies any chest pain, back pain, shortness of breath or cough. Has not noted any blood in urine or stool. Patient has been eating and drinking appropriately. Review of systems: As per history of present illness and below otherwise all systems reviewed and negative. Past medical history: As per history of present illness and as reviewed below otherwise noncontributory. Surgical history: As per history of present illness and as reviewed below otherwise noncontributory. Social history: See social history for further information Family history: As per history of present illness and as reviewed below otherwise noncontributory. Physical exam: General: Well developed and well nourished. Alert and orientated x 3. Tremulous, nontoxic in appearance and in no acute distress. Vital signs are stable and have been reviewed by me. Nursing notes were reviewed. HEENT: Atraumatic, normocephalic, pupils equal and reactive bilaterally, negative for conjunctival pallor or scleral icterus, mucous membranes dry/tacky, TMs normal bilaterally, throat clear, neck supple, nontender, trachea midline. No drooling or trismus noted. No meningeal signs. No hot potato voice noted. Lungs: Clear to auscultation, breath sounds equal bilaterally, chest nontender. Normal work of breathing, no accessory muscles used. Heart: S1S2, regular rate and rhythm without overt murmur Abdomen: Soft, nondistended, epigastric tenderness. Negative for masses or hepatosplenomegaly. Negative for costovertebral tenderness. Skin: Intact, warm, dry. No lesions or rashes noted. Hematologic: No petechiae or purpra. Mucosa appropriate color and normal nail bed color and refill. Extremities: Atraumatic, moves all extremities per self without difficulty or deficits, negative for cords or calf pain. Neurovascular unremarkable. Neuro: Awake, alert, oriented. Cranial nerves II through XII unremarkable. Cerebellum unremarkable. Motor and sensory unremarkable throughout. Exam nonfocal. Psychiatric: Mood and affect are appropriate. Normal thought process. Answering questions appropriately. Notes: 07/15/20: Was seen in the emergency room for complaints of hematemesis (which cleared before the initial ER visit), epigastric pain, nausea, vomiting and feeling tremulous. He states that he drank a 12 pack of beer the day prior. Does have a history of alcohol misuse. EKG compared to previous EKG done on 07/15/2020 shows no significant changes. Sinus rhythm with a rate of 73. No concern for STEMI. CIWA 9; will give Ativan and repeat labs. Patient is willing to do the CT of the abdomen and pelvis tocookie callejas. Please note that the patient was requesting to be admitted as he "just did not feel well". I did briefly speak with our hospitalist about this patient and reviewing his diagnostics, he does not meet criteria. His symptoms have improved, we will continue to monitor the patient. Moderate hepatomegaly and hepatic steatosis. No acute intra-abdominal abnormality is appreciated. Lab work is unremarkable. He has a CIWA of 3 and feels improved. I have talked with the patient about today's findings, in addition to providing specific details for plan of care. We discussed improving his diet, foods high in potassium. Reassessment at the time of disposition demonstrates that the patient is in no acute distress. The patient is stable for discharge, counseling was provided and we discussed in great detail signs and symptoms that would prompt them to return to the Emergency Department. Medication, follow up and supportive care measures were reviewed and discussed. Voices understanding and is agreeable to plan of care. Denies any further questions or concerns at this time. Diagnostics: CBC, CMP, Troponin, EKG, CXR, CT abd/pelvis Therapeutics: IV fluids, Ativan, GI cocktail Prescription: Omeprozole (#20) Impression: Alcohol withdrawal Hyponatremia Hypokalemia Plan: 1. Please stop using alcohol. The numbness you were experiencing today were likely due to alcohol withdrawal. 2. Please follow-up with your primary care provider for reevaluation of your abdominal pain. 3. If your symptoms should worsen or new symptoms develop as we discussed. Please return to the emergency room for reevaluation. Definitive disposition and diagnosis as appropriate pending reevaluation and review of above. Abdominal Pain Score (Numeric/FACES): 6 - Related Data Allergies Allergy/AdvReac Type Severity Reaction Status Date / Time No Known Allergies Allergy Verified 07/15/20 08:11 Home Meds: Home Meds Omeprazole 20 mg PO DAILY #20 capsule. 07/16/20 [Rx] Past Medical History - Past Health History Medical/Surgical History: Denies Medical/Surgical History HEENT History: Reports: None Cardiovascular History: Reports: None Respiratory History: Reports: None Gastrointestinal History: Reports: None Genitourinary History: Reports: None Musculoskeletal History: Reports: None Neurological History: Reports: None Psychiatric History: Reports: Anxiety Other Psychiatric History: ETOH ABUSE Endocrine/Metabolic History: Reports: None Hematologic History: Reports: None Immunologic History: Reports: None Oncologic (Cancer) History: Reports: None Dermatologic History: Reports: None - Infectious Disease History Infectious Disease History: Reports: Chicken Pox - Past Surgical History Head Surgeries/Procedures: Reports: None Social & Family History - Family History Family Medical History: No Pertinent Family History Oncologic: Reports: Leukemia - Caffeine Use Caffeine Use: Reports: Energy Drinks Caffeine Use Comment: 1 energy drink a day ED ROS GENERAL - Review of Systems Review Of Systems: Comprehensive ROS is negative, except as noted in HPI. ED EXAM, GI/ABD - Physical Exam Exam: See Below (See dictation) Course - Vital Signs Last Recorded V/S: Last Vital Signs Temp 97.9 F 07/16/20 12:00 Pulse 85 07/16/20 14:35 Resp 19 07/16/20 14:35 BP 137/82 07/16/20 14:35 Pulse Ox 96 07/16/20 14:35 - Orders/Labs/Meds Orders: Active Orders 24 hr Category Date Time Status EKG Documentation Completion [RC] STAT Care 07/16/20 10:40 Active LORazepam [Ativan] Med 07/16/20 10:40 Active 1 mg IVPUSH ONETIME PRN Medication Orders Lorazepam (Ativan) 1 mg IVPUSH ONETIME PRN PRN Reason: Agitation Last Admin: 07/16/20 11:44 Dose: 1 mg Documented by: AB Labs: Laboratory Tests 07/16/20 07/16/20 07/16/20 Range/Units 10:37 10:37 12:26 WBC 10.66 (4.0-11.0) K/uL RBC 4.63 (4.50-5.90) M/uL Hgb 15.0 (13.0-17.0) g/dL Hct 43.7 (38.0-50.0) % MCV 94.4 (80.0-98.0) fL MCH 32.4 H (27.0-32.0) pg MCHC 34.3 (31.0-37.0) g/dL RDW Std Deviation 44.4 (28.0-62.0) fl RDW Coeff of [place] 13 (11.0-15.0) % Plt Count 276 (150-400) K/uL MPV 9.10 (7.40-12.00) fL Neut % (Auto) 79.6 (48.0-80.0) % Lymph % (Auto) 12.9 L (16.0-40.0) % [place] % (Auto) 7.3 (0.0-15.0) % Eos % (Auto) 0.0 (0.0-7.0) % Baso % (Auto) 0.2 (0.0-1.5) % Neut # (Auto) 8.5 H (1.4-5.7) K/uL Lymph # (Auto) 1.4 (0.6-2.4) K/uL [place] # (Auto) 0.8 (0.0-0.8) K/uL Eos # (Auto) 0.0 (0.0-0.7) K/uL Baso # (Auto) 0.0 (0.0-0.1) K/uL Nucleated RBC % 0.0 /100WBC Nucleated RBCs # 0 K/uL Sodium 129 L (136-148) mmol/L Potassium 3.3 L (3.5-5.1) mmol/L Chloride 91 L (98-107) mmol/L Carbon Dioxide 24.6 (21.0-32.0) mmol/L BUN 13 (7.0-18.0) mg/dL Creatinine 1.1 (0.8-1.3) mg/dL Est Cr Clr Drug Dosing TNP Estimated GFR (MDRD) > 60.0 ml/min Glucose 120 H (74-106) mg/dL Calcium 8.5 (8.5-10.1) mg/dL Total Bilirubin 0.7 (0.2-1.0) mg/dL AST 42 H (15-37) IU/L ALT 43 (14-63) IU/L Alkaline Phosphatase 82 (46-116) U/L Troponin I < 0.050 (0.000-0.056) ng/mL Total Protein 7.7 (6.4-8.2) g/dL Albumin 4.3 (3.4-5.0) g/dL Globulin 3.4 (2.6-4.0) g/dL Albumin/Globulin Ratio 1.3 (0.9-1.6) Lipase 54 L (73-393) U/L Urine Color COLORLESS Urine Appearance CLEAR Urine pH 6.5 (5.0-8.0) Ur Specific [place] <= 1.005 (1.001-1.035) Urine Protein NEGATIVE (NEGATIVE) mg/dL Urine Glucose (UA) NEGATIVE (NEGATIVE) mg/dL Urine Ketones NEGATIVE (NEGATIVE) mg/dL Urine Occult Blood NEGATIVE (NEGATIVE) Urine Nitrite NEGATIVE (NEGATIVE) Urine Bilirubin NEGATIVE (NEGATIVE) Urine Urobilinogen 0.2 (<2.0) EU/dL Ur Leukocyte Esterase NEGATIVE (NEGATIVE) Ethyl Alcohol 21 mg/dL Meds: Medications Generic Name Dose Route Start Last Admin Trade Name Freq PRN Reason Stop Dose Admin Lorazepam 1 mg 07/16/20 10:40 07/16/20 11:44 Ativan IVPUSH 1 mg ONETIME PRN Administration Agitation Discontinued Medications Generic Name Dose Route Start Last Admin Trade Name Freq PRN Reason Stop Dose Admin Al Hydroxide/Mg Hydroxide 15 0 ml 07/16/20 13:30 07/16/20 13:57 ml/ Metoclopramide HCl 5 mg/ PO 07/16/20 13:31 1 each Lidocaine HCl 5 ml ONETIME ONE Administration Sodium Chloride 1,000 mls @ 999 mls/hr 07/16/20 10:39 07/16/20 10:49 Normal Saline IV 07/16/20 11:39 999 mls/hr STAT ONE Administration Sodium Chloride 1,000 mls @ 999 mls/hr 07/16/20 13:30 07/16/20 14:00 Normal Saline IV 07/16/20 14:30 999 mls/hr STAT ONE Administration Iopamidol 100 ml 07/16/20 13:39 Isovue-370 (76%) IVPUSH 07/16/20 13:40 ONETIME STA Lorazepam 1 mg 07/16/20 10:39 07/16/20 10:48 Ativan IVPUSH 07/16/20 10:40 1 mg ONETIME ONE Administration Lorazepam Confirm 07/16/20 10:39 07/16/20 10:57 Ativan Administered 07/16/20 10:40 Not Given Dose 2 mg .ROUTE .STK-MED ONE Lorazepam 1 mg 07/16/20 13:20 07/16/20 14:26 Ativan IVPUSH 07/16/20 13:21 Not Given ONETIME ONE Departure - Departure Time of Disposition: 14:33 Disposition: Home, Self-Care 01 Clinical Impression: Hyponatremia, Hypokalemia Alcohol withdrawal Qualifiers: Complication of substance-induced condition: uncomplicated Qualified Code(s): F10.230 - Alcohol dependence with withdrawal, uncomplicated - Discharge Information Prescriptions: Omeprazole 20 mg PO DAILY #20 capsule. Referrals: PCP,None [Primary Care Provider] - Forms: ED Department Discharge Additional Instructions: The following information is given to patients seen in the emergency department who are being discharged to home. This information is to outline your options for follow-up care. We provide all patients seen in our emergency department with a follow-up referral. The need for follow-up, as well as the timing and circumstances, are variable depending upon the specifics of your emergency department visit. If you don't have a primary care physician on staff, we will provide you with a referral. We always advise you to contact your personal physician following an emergency department visit to inform them of the circumstance of the visit and for follow-up with them and/or the need for any referrals to a consulting specialist. The emergency department will also refer you to a specialist when appropriate. This referral assures that you have the opportunity for follow-up care with a specialist. All of these measure are taken in an effort to provide you with optimal care, which includes your follow-up. Under all circumstances we always encourage you to contact your private phys ician who remains a resource for coordinating your care. When calling for follow-up care, please make the office aware that this follow-up is from your recent emergency room visit. If for any reason you are refused follow-up, please contact the [facility] Emergency Department at and asked to speak to the emergency department charge nurse. [facility] [address] [place] [id number] [facility] [address] [place] [id number] Thank you for choosing the [facility] emergency department in [place] for your medical needs today. It was a pleasure caring for you. Today you were seen in the emergency department for epigastric pain. 1. Please stop using alcohol. The symptoms you were experiencing today were likely due to alcohol withdrawal. Consider outpatient alcohol outpatient treatment options (handout given to you) 2. Please follow-up with your primary care provider for reevaluation of your abdominal pain. 3. If your symptoms should worsen or new symptoms develop as we discussed. Please return to the emergency room for reevaluation. Sepsis Event Note (ED) - Focused Exam Vital Signs: Vital Signs Temp Pulse Resp BP Pulse Ox 07/16/20 14:35 85 19 137/82 96 07/16/20 12:00 97.9 F 73 19 144/78 H 96 - My Orders Last 24 Hours: My Active Orders 07/16/20 10:40 EKG Documentation Completion [RC] STAT LORazepam [Ativan] 1 mg IVPUSH ONETIME PRN - Assessment/Plan Last 24 Hours: My Active Orders 07/16/20 10:40 EKG Documentation Completion [RC] STAT LORazepam [Ativan] 1 mg IVPUSH ONETIME PRN
[2020-07-16] MEDS ORDERED: Alum Hydrox/Mag Hydrox/Simeth 15 ML, Metoclopramide 5 MG, Lidocaine 2% 5 ML PO ONE ×3 (13:30)
[2020-07-16] MEDS ORDERED: Iopamidol 755 Mg/ML 100 ML Bottle IVPUSH STA (13:39)
--- NOTE | 2020-07-16 13:58 | CT ---
Indication: Abdominal pain Technique: Volumetric multidetector CT images of the abdomen and pelvis were obtained after the administration of intravenous contrast. 100 cc Isovue 370 Comparison: None available. Findings: There is basilar atelectasis versus scar. There is hepatomegaly and hepatic steatosis. The portal vein is patent. The gallbladder is unremarkable without evidence of radiopaque calculus. There is no significant common biliary ductal dilatation or abrupt cut off. The spleen is normal in enhancement and size. The stomach and duodenum are grossly unremarkable. The pancreas is normal in enhancement without significant atrophy. The adrenal glands are unremarkable. The kidneys demonstrate preserved corticomedullary differentiation without evidence of obstructive uropathy. There is a mild amount of stool seen throughout the colon. There is mild distal colonic diverticulosis. The appendix is unremarkable. There is no significant mesenteric, retroperitoneal, or pelvic sidewall lymph nodes. The aorta is nonaneurysmal. There is no significant atherosclerotic disease appreciated. The solid pelvic viscera are grossly unremarkable. There is no free fluid or free air. The anterior abdominal wall is intact without significant hernias. There are minimal central Schmorl`s defects of the lower thoracic and upper lumbar vertebral bodies without evidence of displaced fracture or spondylolisthesis. Impression: Moderate hepatomegaly and hepatic steatosis. No definite acute intra-abdominal abnormality is appreciated. Please note that all CT scans at this facility use dose modulation, iterative reconstruction, and/or weight-based dosing when appropriate to reduce radiation dose to as low as reasonably achievable. Dictated by Ryan Rivera MD @ Jul 16 2020 1:49PM Signed by Dr. Ryan Rivera @ Jul 16 2020 1:57PM
== END 2020-07-16 15:04 | disposition home or self-care (01) ==
LOC: MW.ED 10:32
DX: F10.230 Alcohol dependence with withdrawal, uncomplicated (principal); E87.1 Hypo-osmolality and hyponatremia; E87.6 Hypokalemia; Y90.1 Blood alcohol level of 20-39 mg/100 ml
CPT/HCPCS: 36415; 74177; 80053; 80307; 81003; 83690; 84484; 85025; 93005; 96374; 96376; 99284; A9270; J2060; J7030; Q9967; 93010; 99285

== ENCOUNTER 2020-08-25 05:07 | Emergency (ER) | payer OTHER ==
[2020-08-25] MEDS ORDERED: Sodium Chloride 0.9% 1,000 ML IV ONE (05:30)
[2020-08-25] MEDS ORDERED: Ondansetron 4 MG/2 ML SDV IVPUSH ONE (05:30)
--- NOTE | 2020-08-25 05:32 | EDM.PDOC ---
<Rajan Son - Last Filed: 08/25/20 06:22> ED HPI GENERAL MEDICAL PROBLEM - General Chief Complaint: Gastrointestinal Problem Stated Complaint: DEHYDRATED; SHAKY Time Seen by Provider: 08/25/20 05:19 Source of Information: Reports: Patient History Limitations: Reports: No Limitations - History of Present Illness INITIAL COMMENTS - FREE TEXT/NARRATIVE: Is a 35-year-old male who presents today for weakness fatigue nausea vomiting. Patient states since this morning around 2 AM he is been having some vomiting feels like he is severely dehydrated he has not been able to tolerate anything by mouth. The abdominal pain fevers chills. Patient denied any new foods restaurants recent travels antibiotic use. Patient has no other complaints. Abdomen Pain Score (Numeric/FACES): 6 - Related Data Allergies Allergy/AdvReac Type Severity Reaction Status Date / Time No Known Allergies Allergy Verified 08/25/20 05:19 Home Meds: Home Meds Ondansetron [Zofran] 4 mg PO Q8H PRN #15 tab 08/25/20 [Rx] Past Medical History - Past Health History Medical/Surgical History: Denies Medical/Surgical History HEENT History: Reports: None Cardiovascular History: Reports: None Respiratory History: Reports: None Gastrointestinal History: Reports: None Genitourinary History: Reports: None Musculoskeletal History: Reports: None Neurological History: Reports: None Psychiatric History: Reports: Anxiety Other Psychiatric History: ETOH ABUSE Endocrine/Metabolic History: Reports: None Insulin Pump Model and Sr Vice President: None Hematologic History: Reports: None Immunologic History: Reports: None Oncologic (Cancer) History: Reports: None Dermatologic History: Reports: None - Infectious Disease History Infectious Disease History: Reports: Chicken Pox - Past Surgical History Head Surgeries/Procedures: Reports: None GI Surgical History: Reports: None Social & Family History - Family History Family Medical History: No Pertinent Family History Oncologic: Reports: Leukemia - Tobacco Use Tobacco Use Status *Q: Current Every Day Tobacco User Years of Tobacco use: 20 Packs/Tins Daily: 1 - Caffeine Use Caffeine Use: Reports: Energy Drinks Caffeine Use Comment: 1 energy drink a day - Recreational Drug Use Recreational Drug Use: No ED ROS GENERAL - Review of Systems Review Of Systems: See Below Constitutional: Reports: No Symptoms HEENT: Reports: No Symptoms Respiratory: Reports: No Symptoms Cardiovascular: Reports: No Symptoms Endocrine: Reports: No Symptoms GI/Abdominal: Reports: Nausea, Vomiting : Reports: No Symptoms Musculoskeletal: Reports: No Symptoms Skin: Reports: No Symptoms Neurological: Reports: No Symptoms Psychiatric: Reports: No Symptoms Hematologic/Lymphatic: Reports: No Symptoms Immunologic: Reports: No Symptoms ED EXAM, GENERAL - Physical Exam Exam: See Below Exam Limited By: No Limitations General Appearance: Alert, WD/WN, No Apparent Distress Respiratory/Chest: No Respiratory Distress, Lungs Clear, Normal Breath Sounds Cardiovascular: Normal Peripheral Pulses, Regular Rate, Rhythm GI/Abdominal: Normal Bowel Sounds, Soft, Non-Tender Neurological: Alert, Oriented, Normal Cognition Course - Re-Assessments/Exams Free Text/Narrative Re-Assessment/Exam: 08/25/20 06:22 Patient received 1 L of fluids and also given potassium p.o. Patient states that he just felt weak and uncomfortable. Patient has no abdominal tenderness on examination started vomiting. Patient vital signs are stable labs are stable other than potassium being 3.4 which were repleted. Patient will be discharged home to follow-up primary care physician. Departure - Departure Time of Disposition: 06:23 Disposition: Home, Self-Care 01 Condition: Good Clinical Impression: Weakness, Nausea and vomiting in adult, Hypokalemia Hematemesis Qualifiers: Nausea presence: with nausea Qualified Code(s): K92.0 - Hematemesis - Discharge Information *PRESCRIPTION DRUG MONITORING PROGRAM REVIEWED*: Not Applicable *COPY OF PRESCRIPTION DRUG MONITORING REPORT IN PATIENT TONY: Not Applicable Prescriptions: Ondansetron [Zofran] 4 mg PO Q8H PRN #15 tab PRN Reason: Nausea/Vomiting Instructions: Nausea and Vomiting, Adult, Gastrointestinal Bleeding, [id number], Potassium Content of Foods, Dehydration, Elderly, [id number] Referrals: [facility] [Provider Group] - 1 Week (For follow-up of symptoms.) Forms: ED Department Discharge Additional Instructions: The following information is given to patients seen in the emergency department who are being discharged to home. This information is to outline your options for follow-up care. We provide all patients seen in our emergency department with a follow-up referral. The need for follow-up, as well as the timing and circumstances, are variable depending upon the specifics of your emergency department visit. If you don't have a primary care physician on staff, we will provide you with a referral. We always advise you to contact your personal physician following an e mergency department visit to inform them of the circumstance of the visit and for follow-up with them and/or the need for any referrals to a consulting specialist. The emergency department will also refer you to a specialist when appropriate. This referral assures that you have the opportunity for follow-up care with a specialist. All of these measure are taken in an effort to provide you with op timal care, which includes your follow-up. Under all circumstances we always encourage you to contact your private physician who remains a resource for coordinating your care. When calling for follow-up care, please make the office aware that this follow-up is from your recent emergency room visit. If for any reason you are refused follow-up, please contact the [facility] Emergency Department at and asked to speak to the emergency department charge nurse. Please follow up with your primary care physician. If you do not have a primary care physician, see below: [facility] [address] [place] [id number] [facility] [address] [place] [id number] Follow-up with your primary care physician if you have any more questions. You have increased weakness cannot tolerate any food or water by mouth please return to the emergency department. Care Plan Goals: You were seen in the emergency department for nausea, vomiting, and feeling like you are dehydrated. He also reported with a blood clot in your vomit. At this point I see no evidence of actual blood in your vomit, your blood count and lab work look normal. Your potassium level is slightly low. I must strongly encourage you to stop drinking alcohol as this can cause nausea and vomiting. I recommend [id number] omeprazole which can help reduce the acid level in your stomach and can help bleeding stopped. I am also going to prescribe some Zofran for nausea and vomiting. You can take [id number] Pedialyte, Gatorade, or Powerade to help replace any fluids that you lost from vomiting but you do not need additional IV fluids at this point. Warning signs to come back to the ER include: Additional blood in your vomit, bright red blood in your stool, black tarry stools, severe abdominal pain, fever, or any other new or concerning symptoms. Please return the emergency department immediately if your symptoms worsen or if you feel worse. Thank you for choosing the [facility] emergency department in [place] for your medical needs today. It was a pleasure caring for you. The following information is given to patients seen in the emergency department who are being discharged. This information is to outline your options for follow-up care. We provide all patients seen in our emergency department with a follow-up referral. The need for follow-up, as well as the timing and circumstances, are variable depending upon the specifics of your emergency department visit. If you don't have a primary care physician on staff, we will provide you with a referral. We always advise you to contact your personal physician following an emergency department visit to inform them of the circumstance of the visit and for follow-up with them and/or the need for any referrals to a consulting specialist. The emergency department will also refer you to a specialist when appropriate. This referral assures that you have the opportunity for follow-up care with a specialist. All of these measure are taken in an effort to provide you with optimal care, which includes your follow-up. Under all circumstances we always encourage you to contact your private physician who remains a resource for coordinating your care. When calling for follow-up care, please make the office aware that this follow-up is from your recent emergency room visit. If for any reason you are refused follow-up, please contact the [facility] Emergency Department at and asked to speak to the emergency department charge nurse. If you do not have a primary care physician that is caring for you, you can contact these clinics below to set up an appointment to establish care: [facility] - [facility] [address] [place] [id number] [address] Sepsis Event Note (ED) - Evaluation Sepsis Screening Result: No Definite Risk - Assessment/Plan Assessment:: Patient is a 35-year-old male who presents today for nausea vomiting and weakness. Patient has no abdominal tenderness on exam. Will obtain labs and give IV fluids and reassess. <Gregory Luu - Last Filed: 08/25/20 07:44> ED HPI GENERAL MEDICAL PROBLEM - General Source of Information: Reports: Patient History Limitations: Reports: No Limitations ED EXAM, GENERAL - Physical Exam Exam: See Below Course - Vital Signs Text/Narrative:: I assumed care of this patient at [address] Son. In brief, this is a 35-year-old male well-known to our emergency department for multiple visits for vomiting, lightheadedness, nausea, and abdominal pain. This morning he presented to the emergency department complaining of feeling dehydrated and multiple episodes of emesis throughout the night. He states that his episodes of emesis were "dark red like blood" earlier in the evening, but then they started to turn normal in appearance. Denies any fever, diarrhea, coffee-ground emesis, hematochezia, or melena. Denies black tarry stools. He is complaining of myalgias. He is very concerned that he is dehydrated. Patient already received 50 mg of p.o. chlordiazepoxide, 1 mg IV midazolam, 4 mg ondansetron, potassium chloride, and 1 L of normal saline prior to my arrival. I reevaluated the patient at shift change. He is resting comfortably. Heart rate is in the 80s. He is not tachycardic or tremulous. Oral mucosa are moist, eyes are not sunken. Extremities are warm and well-perfused. He is not tremulous and does not appear to be in alcohol withdrawal. He does not have any active vomiting. He denies any black tarry stools so I do not think we need to perform rectal exam. He is hemodynamically stable. Lab work-up shows normal hemoglobin, white blood cell count, platelet count. Metabolic panel shows a very slight hypokalemia at 3.4. Renal function and BUN are normal. Magnesium, phosphorus, LFTs are normal. Lipase is within normal limits. Ethyl alcohol is 79. Urine drug screen is negative. At this point his work-up is essentially negative. He reports multiple episodes of emesis at home but is not having any emesis here. His abdomen is soft and nontender. He does report subjective hematemesis but he is not having any here. His hemoglobin is normal and he is not tachycardic. I did not note any blood in the oropharynx or any objective evidence of a GI bleed. He does not look clinically volume depleted and has already received IV fluids. He is perseverating on the idea of being dehydrated and is asking multiple people for additional IV fluids. I explained that these are not indicated that he can continue to drink p.o. electrolyte solution such as Gatorade or Pedialyte at home. We are going to prescribe some Zofran for nausea and omeprazole OTC given subjective symptoms of a GI bleed, although I do not appreciate any evidence of one here. We will have him follow-up with a primary medical clinic in the next few days for reevaluation. Plan: Patient is stable to discharge home with outpatient primary care clinic follow-up. Strict emergency department return precautions were provided, patient indicated understanding. All questions were answered prior to departure. Discharged in good condition. Last Recorded V/S: Last Vital Signs Temp 36.4 C 08/25/20 05:15 Pulse 70 08/25/20 07:16 Resp 16 08/25/20 07:16 BP 141/78 H 08/25/20 07:16 Pulse Ox 97 08/25/20 07:16 - Orders/Labs/Meds Labs: Laboratory Tests 08/25/20 08/25/20 08/25/20 Range/Units 05:40 05:40 05:40 WBC 8.16 (4.0-11.0) K/uL RBC 4.50 (4.50-5.90) M/uL Hgb 14.5 (13.0-17.0) g/dL Hct 42.0 (38.0-50.0) % MCV 93.3 (80.0-98.0) fL MCH 32.2 H (27.0-32.0) pg MCHC 34.5 (31.0-37.0) g/dL RDW Std Deviation 44.9 (28.0-62.0) fl RDW Coeff of [place] 13 (11.0-15.0) % Plt Count 300 (150-400) K/uL MPV 9.40 (7.40-12.00) fL Neut % (Auto) 62.5 (48.0-80.0) % Lymph % (Auto) 27.3 (16.0-40.0) % [place] % (Auto) 9.3 (0.0-15.0) % Eos % (Auto) 0.5 (0.0-7.0) % Baso % (Auto) 0.4 (0.0-1.5) % Neut # (Auto) 5.1 (1.4-5.7) K/uL Lymph # (Auto) 2.2 (0.6-2.4) K/uL [place] # (Auto) 0.8 (0.0-0.8) K/uL Eos # (Auto) 0.0 (0.0-0.7) K/uL Baso # (Auto) 0.0 (0.0-0.1) K/uL Nucleated RBC % 0.0 /100WBC Nucleated RBCs # 0 K/uL Sodium 137 (136-148) mmol/L Potassium 3.4 L (3.5-5.1) mmol/L Chloride 101 (98-107) mmol/L Carbon Dioxide 26.1 (21.0-32.0) mmol/L BUN 8 (7.0-18.0) mg/dL Creatinine 0.9 (0.8-1.3) mg/dL Est Cr Clr Drug Dosing 120.85 mL/min Estimated GFR (MDRD) > 60.0 ml/min Glucose 118 H (74-106) mg/dL Calcium 9.0 (8.5-10.1) mg/dL Phosphorus 3.2 (2.6-4.7) mg/dL Magnesium 1.8 (1.8-2.4) mg/dL Total Bilirubin 0.3 (0.2-1.0) mg/dL AST 23 (15-37) IU/L ALT 25 (14-63) IU/L Alkaline Phosphatase 76 (46-116) U/L Total Protein 7.1 (6.4-8.2) g/dL Albumin 3.9 (3.4-5.0) g/dL Globulin 3.2 (2.6-4.0) g/dL Albumin/Globulin Ratio 1.2 (0.9-1.6) Lipase 70 L (73-393) U/L Urine Opiates Screen (NEGATIVE) Ur Oxycodone Screen (NEGATIVE) Urine Methadone Screen (NEGATIVE) Ur Barbiturates Screen (NEGATIVE) Ur Phencyclidine Scrn (NEGATIVE) Ur Amphetamine Screen (NEGATIVE) U Methamphetamines Scrn (NEGATIVE) U Benzodiazepines Scrn (NEGATIVE) U Cocaine Metab Screen (NEGATIVE) U Marijuana (THC) Screen (NEGATIVE) Ethyl Alcohol 79 mg/dL 08/25/20 Range/Units 06:55 WBC (4.0-11.0) K/uL RBC (4.50-5.90) M/uL Hgb (13.0-17.0) g/dL Hct (38.0-50.0) % MCV (80.0-98.0) fL MCH (27.0-32.0) pg MCHC (31.0-37.0) g/dL RDW Std Deviation (28.0-62.0) fl RDW Coeff of [place] (11.0-15.0) % Plt Count (150-400) K/uL MPV (7.40-12.00) fL Neut % (Auto) (48.0-80.0) % Lymph % (Auto) (16.0-40.0) % [place] % (Auto) (0.0-15.0) % Eos % (Auto) (0.0-7.0) % Baso % (Auto) (0.0-1.5) % Neut # (Auto) (1.4-5.7) K/uL Lymph # (Auto) (0.6-2.4) K/uL [place] # (Auto) (0.0-0.8) K/uL Eos # (Auto) (0.0-0.7) K/uL Baso # (Auto) (0.0-0.1) K/uL Nucleated RBC % /100WBC Nucleated RBCs # K/uL Sodium (136-148) mmol/L Potassium (3.5-5.1) mmol/L Chloride (98-107) mmol/L Carbon Dioxide (21.0-32.0) mmol/L BUN (7.0-18.0) mg/dL Creatinine (0.8-1.3) mg/dL Est Cr Clr Drug Dosing mL/min Estimated GFR (MDRD) ml/min Glucose (74-106) mg/dL Calcium (8.5-10.1) mg/dL Phosphorus (2.6-4.7) mg/dL Magnesium (1.8-2.4) mg/dL Total Bilirubin (0.2-1.0) mg/dL AST (15-37) IU/L ALT (14-63) IU/L Alkaline Phosphatase (46-116) U/L Total Protein (6.4-8.2) g/dL Albumin (3.4-5.0) g/dL Globulin (2.6-4.0) g/dL Albumin/Globulin Ratio (0.9-1.6) Lipase (73-393) U/L Urine Opiates Screen NEGATIVE (NEGATIVE) Ur Oxycodone Screen NEGATIVE (NEGATIVE) Urine Methadone Screen NEGATIVE (NEGATIVE) Ur Barbiturates Screen NEGATIVE (NEGATIVE) Ur Phencyclidine Scrn NEGATIVE (NEGATIVE) Ur Amphetamine Screen NEGATIVE (NEGATIVE) U Methamphetamines Scrn NEGATIVE (NEGATIVE) U Benzodiazepines Scrn NEGATIVE (NEGATIVE) U Cocaine Metab Screen NEGATIVE (NEGATIVE) U Marijuana (THC) Screen NEGATIVE (NEGATIVE) Ethyl Alcohol mg/dL Meds: Medications Discontinued Medications Generic Name Dose Route Start Last Admin Trade Name Freq PRN Reason Stop Dose Admin Chlordiazepoxide HCl 50 mg 08/25/20 06:32 08/25/20 06:46 Librium PO 08/25/20 06:33 50 mg ONETIME ONE Administration Sodium Chloride 1,000 mls @ 999 mls/hr 08/25/20 05:30 08/25/20 05:44 Normal Saline IV 08/25/20 06:30 999 mls/hr .BOLUS ONE Administration Midazolam HCl 1 mg 08/25/20 06:20 08/25/20 07:01 Versed 1 Mg/Ml IVPUSH 08/25/20 06:21 Not Given ONETIME ONE Ondansetron HCl 4 mg 08/25/20 05:30 08/25/20 05:44 Zofran IVPUSH 08/25/20 05:31 4 mg ONETIME ONE Administration Potassium Chloride 20 meq 08/25/20 06:20 08/25/20 06:49 Potassium Chloride Solution PO 08/25/20 06:21 Not Given ONETIME ONE Potassium Chloride Confirm 08/25/20 06:37 08/25/20 06:46 Potassium Chloride Administered 08/25/20 06:38 Not Given Dose 40 meq .ROUTE .STK-MED ONE Potassium Chloride 40 meq 08/25/20 09:00 Potassium Chloride Solution PO DAILY JACK Potassium Chloride 40 meq 08/25/20 06:48 08/25/20 06:49 Potassium Chloride PO 08/25/20 06:49 40 meq ONETIME ONE Administration Departure - Departure Condition: Good - Discharge Information *PRESCRIPTION DRUG MONITORING PROGRAM REVIEWED*: Not Applicable *COPY OF PRESCRIPTION DRUG MONITORING REPORT IN PATIENT TONY: Not Applicable Sepsis Event Note (ED) - Focused Exam Vital Signs: Vital Signs Temp Pulse Resp BP Pulse Ox 08/25/20 07:16 70 16 141/78 H 97 08/25/20 06:52 80 18 136/87 96 08/25/20 05:15 36.4 C 79 18 124/78 98
[2020-08-25 06:12] LABS: BLOOD UREA NITROGEN,BUN 8 mg/dL (7.0-18.0); CARBON DIOXIDE,CO2 26.1 mmol/L (21.0-32.0); CHLORIDE,CL 101 mmol/L (98-107); GLUCOSE RANDOM 118 mg/dL (74-106); LIPASE 70 U/L (73-393); POTASSIUM,K 3.4 mmol/L (3.5-5.1); SODIUM,NA 137 mmol/L (136-148)
[2020-08-25] MEDS ORDERED: Midazolam 1 MG/ML 2 ML SDV IVPUSH ONE (06:20)
[2020-08-25] MEDS ORDERED: Potassium Chloride 10% 20 MEQ/15 ML Soln 15 ML UD Cup PO ONE (06:20)
[2020-08-25] MEDS ORDERED: chlordiazePOXIDE 25 MG Cap PO ONE (06:32)
[2020-08-25] MEDS ORDERED: Potassium Chloride 10% 20 MEQ/15 ML Soln 30 ML UD Cup ONE (06:37)
[2020-08-25] MEDS ORDERED: Potassium Chloride 10% 20 MEQ/15 ML Soln 30 ML UD Cup PO ONE (06:48)
[2020-08-25] MEDS ORDERED: Potassium Chloride 10% 20 MEQ/15 ML Soln 15 ML UD Cup PO SCH (09:00)
== END 2020-08-25 07:52 | disposition home or self-care (01) ==
LOC: MW.ED 05:07
DX: E87.6 Hypokalemia (principal); K92.0 Hematemesis; F17.210 Nicotine dependence, cigarettes, uncomplicated
CPT/HCPCS: 36415; 80053; 80305; 80307; 83690; 83735; 84100; 85025; 96374; 99284; A9270; J2405; J7030

== ENCOUNTER 2020-09-29 08:35 | Emergency (ER) | payer OTHER ==
[2020-09-29] MEDS ORDERED: Sodium Chloride 0.9% 2.5 ML Syringe FLUSH PRN (08:47)
[2020-09-29] MEDS ORDERED: Sodium Chloride 0.9% 10 ML Syringe FLUSH PRN (08:47)
[2020-09-29] MEDS ORDERED: LORazepam 2 MG/ML SDV IVPUSH ONE (08:47)
[2020-09-29] MEDS ORDERED: Sodium Chloride 0.9% 1,000 ML IV ONE (08:47)
--- NOTE | 2020-09-29 08:51 | EDM.PDOC ---
ED HPI GENERAL MEDICAL PROBLEM - General Chief Complaint: General Stated Complaint: unk Time Seen by Provider: 09/29/20 08:41 Source of Information: Reports: Patient History Limitations: Reports: No Limitations - History of Present Illness INITIAL COMMENTS - FREE TEXT/NARRATIVE: Patient is a 35-year-old male who presents today for body aches and fatigue. Patient states he feels dehydrated to try to drink water at home but has some vomiting side to come in. Patient reports that he was drinking yesterday and woke up today with the symptoms. Patient denies any chest abdominal pain tremors or headaches. Patient denies any fevers chills cough or shortness of breath. - Related Data Allergies Allergy/AdvReac Type Severity Reaction Status Date / Time No Known Allergies Allergy Verified 09/29/20 08:37 Home Meds: Home Meds . [No Known Home Meds] 09/29/20 [History] Past Medical History - Past Health History Medical/Surgical History: Denies Medical/Surgical History HEENT History: Reports: None Cardiovascular History: Reports: None Respiratory History: Reports: None Gastrointestinal History: Reports: None Genitourinary History: Reports: None Musculoskeletal History: Reports: None Neurological History: Reports: None Psychiatric History: Reports: Anxiety Other Psychiatric History: ETOH ABUSE Endocrine/Metabolic History: Reports: None Insulin Pump Model and Belt Loop Machine Operator: None Hematologic History: Reports: None Immunologic History: Reports: None Oncologic (Cancer) History: Reports: None Dermatologic History: Reports: None - Infectious Disease History Infectious Disease History: Reports: Chicken Pox - Past Surgical History Head Surgeries/Procedures: Reports: None GI Surgical History: Reports: None Other GI Surgeries/Procedures: vomiting blood tonight 10/31/19 Social & Family History - Family History Family Medical History: No Pertinent Family History Oncologic: Reports: Leukemia - Tobacco Use Tobacco Use Status *Q: Current Every Day Tobacco User Years of Tobacco use: 20 Packs/Tins Daily: 1 - Caffeine Use Caffeine Use: Reports: None Caffeine Use Comment: 1 energy drink a day - Recreational Drug Use Recreational Drug Use: No ED ROS GENERAL - Review of Systems Review Of Systems: Comprehensive ROS is negative, except as noted in HPI. ED EXAM, GENERAL - Physical Exam Exam: See Below Exam Limited By: No Limitations General Appearance: Alert, WD/WN, No Apparent Distress Eye Exam: Bilateral Eye: EOMI, PERRL Head: Atraumatic Neck: Normal Inspection Respiratory/Chest: No Respiratory Distress, Lungs Clear, Normal Breath Sounds Cardiovascular: Normal Peripheral Pulses, Regular Rate, Rhythm GI/Abdominal: Normal Bowel Sounds, Soft, Non-Tender Back Exam: Normal Inspection Extremities: Normal Inspection Neurological: Alert, Oriented, CN II-XII Intact, Normal Cognition, Normal Gait, Other (no tremor) #1 Interpretation EKG Date: 09/29/20 Time: 10:05 Rhythm: NSR Rate (Beats/Min): 67 [place]: Normal ST-T: Normal Course - Vital Signs Last Recorded V/S: Last Vital Signs Temp 97.3 F 09/29/20 08:38 Pulse 74 09/29/20 09:23 Resp 17 09/29/20 09:23 BP 119/75 09/29/20 09:23 Pulse Ox 99 09/29/20 09:23 - Orders/Labs/Meds Orders: Active Orders 24 hr Category Date Time Status Cardiac Monitoring [RC] . DIRECTED Care 09/29/20 08:47 Active Pulse Oximetry [RC] ASDIRECTED Care 09/29/20 08:47 Active Sodium Chloride 0.9% [Normal Saline] 1,000 ml Med 09/29/20 10:00 Active IV ASDIRECTED Sodium Chloride 0.9% [Saline Flush] Med 09/29/20 08:47 Active 10 ml FLUSH ASDIRECTED PRN Sodium Chloride 0.9% [Saline Flush] Med 09/29/20 08:47 Active 2.5 ml FLUSH ASDIRECTED PRN Saline Lock Insert [OM.PC] Stat Oth 09/29/20 08:47 Ordered Medication Orders Sodium Chloride (Normal Saline) 1,000 mls @ 1,000 mls/hr IV ASDIRECTED JACK Last Admin: 09/29/20 10:01 Dose: 1,000 mls/hr Documented by: [id number] Sodium Chloride (Saline Flush) 10 ml FLUSH ASDIRECTED PRN PRN Reason: Keep Vein Open Last Admin: 09/29/20 08:56 Dose: 10 ml Documented by: VANITA Sodium Chloride (Saline Flush) 2.5 ml FLUSH ASDIRECTED PRN PRN Reason: Keep Vein Open Last Admin: 09/29/20 08:56 Dose: 2.5 ml Documented by: VNAITA Labs: Laboratory Tests 0209/29/20 09/29/20 Range/Units 08:45 08:45 08:45 WBC 6.41 (4.0-11.0) K/uL RBC 4.35 L (4.50-5.90) M/uL Hgb 13.8 (13.0-17.0) g/dL Hct 41.4 (38.0-50.0) % MCV 95.2 (80.0-98.0) fL MCH 31.7 (27.0-32.0) pg MCHC 33.3 (31.0-37.0) g/dL RDW Std Deviation 46.5 (28.0-62.0) fl RDW Coeff of [place] 13 (11.0-15.0) % Plt Count 249 (150-400) K/uL MPV 9.50 (7.40-12.00) fL Neut % (Auto) 64.3 (48.0-80.0) % Lymph % (Auto) 27.9 (16.0-40.0) % Becker % (Auto) 7.3 (0.0-15.0) % Eos % (Auto) 0.2 (0.0-7.0) % Baso % (Auto) 0.3 (0.0-1.5) % Neut # (Auto) 4.1 (1.4-5.7) K/uL Lymph # (Auto) 1.8 (0.6-2.4) K/uL Becker # (Auto) 0.5 (0.0-0.8) K/uL Eos # (Auto) 0.0 (0.0-0.7) K/uL Baso # (Auto) 0.0 (0.0-0.1) K/uL Nucleated RBC % 0.0 /100WBC Nucleated RBCs # 0 K/uL Lactate 3.3 H* (0.20-2.00) mmol/L Sodium 139 (136-148) mmol/L Potassium 3.3 L (3.5-5.1) mmol/L Chloride 103 (98-107) mmol/L Carbon Dioxide 22.0 (21.0-32.0) mmol/L BUN 7 (7.0-18.0) mg/dL Creatinine 1.1 (0.8-1.3) mg/dL Est Cr Clr Drug Dosing 98.88 mL/min Estimated GFR (MDRD) > 60.0 ml/min Glucose 157 H (74-106) mg/dL Calcium 8.4 L (8.5-10.1) mg/dL Phosphorus 1.4 L (2.6-4.7) mg/dL Magnesium 1.9 (1.8-2.4) mg/dL Total Bilirubin 0.2 (0.2-1.0) mg/dL AST 26 (15-37) IU/L ALT 25 (14-63) IU/L Alkaline Phosphatase 85 (46-116) U/L Creatine Kinase 149 (26-308) U/L Total Protein 7.5 (6.4-8.2) g/dL Albumin 4.1 (3.4-5.0) g/dL Globulin 3.4 (2.6-4.0) g/dL Albumin/Globulin Ratio 1.2 (0.9-1.6) Lipase 76 (73-393) U/L Ethyl Alcohol 85 mg/dL 09/29/20 Range/Units 11:13 WBC (4.0-11.0) K/uL RBC (4.50-5.90) M/uL Hgb (13.0-17.0) g/dL Hct (38.0-50.0) % MCV (80.0-98.0) fL MCH (27.0-32.0) pg MCHC (31.0-37.0) g/dL RDW Std Deviation (28.0-62.0) fl RDW Coeff of [place] (11.0-15.0) % Plt Count (150-400) K/uL MPV (7.40-12.00) fL Neut % (Auto) (48.0-80.0) % Lymph % (Auto) (16.0-40.0) % Becker % (Auto) (0.0-15.0) % Eos % (Auto) (0.0-7.0) % Baso % (Auto) (0.0-1.5) % Neut # (Auto) (1.4-5.7) K/uL Lymph # (Auto) (0.6-2.4) K/uL Becker # (Auto) (0.0-0.8) K/uL Eos # (Auto) (0.0-0.7) K/uL Baso # (Auto) (0.0-0.1) K/uL Nucleated RBC % /100WBC Nucleated RBCs # K/uL Lactate 2.5 H* (0.20-2.00) mmol/L Sodium (136-148) mmol/L Potassium (3.5-5.1) mmol/L Chloride (98-107) mmol/L Carbon Dioxide (21.0-32.0) mmol/L BUN (7.0-18.0) mg/dL Creatinine (0.8-1.3) mg/dL Est Cr Clr Drug Dosing mL/min Estimated GFR (MDRD) ml/min Glucose (74-106) mg/dL Calcium (8.5-10.1) mg/dL Phosphorus (2.6-4.7) mg/dL Magnesium (1.8-2.4) mg/dL Total Bilirubin (0.2-1.0) mg/dL AST (15-37) IU/L ALT (14-63) IU/L Alkaline Phosphatase (46-116) U/L Creatine Kinase (26-308) U/L Total Protein (6.4-8.2) g/dL Albumin (3.4-5.0) g/dL Globulin (2.6-4.0) g/dL Albumin/Globulin Ratio (0.9-1.6) Lipase (73-393) U/L Ethyl Alcohol mg/dL Meds: Medications Generic Name Dose Route Start Last Admin Trade Name Freq PRN Reason Stop Dose Admin Sodium Chloride 1,000 mls @ 1,000 mls/hr 09/29/20 10:00 09/29/20 10:01 Normal Saline IV 1,000 mls/hr ASDIRECTED JACK Administration Sodium Chloride 10 ml 09/29/20 08:47 09/29/20 08:56 Saline Flush FLUSH 10 ml ASDIRECTED PRN Administration Keep Vein Open Sodium Chloride 2.5 ml 09/29/20 08:47 09/29/20 08:56 Saline Flush FLUSH 2.5 ml ASDIRECTED PRN Administration Keep Vein Open Discontinued Medications Generic Name Dose Route Start Last Admin Trade Name Freq PRN Reason Stop Dose Admin Sodium Chloride 1,000 mls @ 999 mls/hr 09/29/20 08:47 09/29/20 08:56 Normal Saline IV 09/29/20 09:47 999 mls/hr .BOLUS ONE Administration Lorazepam 2 mg 09/29/20 08:47 09/29/20 08:52 Ativan IVPUSH 09/29/20 08:48 Not Given ONETIME ONE - Re-Assessments/Exams Free Text/Narrative Re-Assessment/Exam: 09/29/20 11:33 Patient labs reviewed he has elevated alcohol level. Patient states that he drove here we have asked patient not to drive that he still taking the drops. Patient understands this. Patient was given 2 L of fluid lactate is decreased. Patient will be discharged home. Departure - Departure Time of Disposition: 11:34 Disposition: Home, Self-Care 01 Condition: Good Clinical Impression: Body aches - Discharge Information *PRESCRIPTION DRUG MONITORING PROGRAM REVIEWED*: Not Applicable *COPY OF PRESCRIPTION DRUG MONITORING REPORT IN PATIENT TONY: Not Applicable Instructions: Acute Pain, Adult Referrals: PCP,None [Primary Care Provider] - Forms: ED Department Discharge Additional Instructions: The following information is given to patients seen in the emergency department who are being discharged to home. This information is to outline your options for follow-up care. We provide all patients seen in our emergency department with a follow-up referral. The need for follow-up, as well as the timing and circumstances, are variable depending upon the specifics of your emergency department visit. If you don't have a primary care physician on staff, we will provide you with a referral. We always advise you to contact your personal physician following an emergency department visit to inform them of the circumstance of the visit and for follow-up with them and/or the need for any referrals to a consulting specialist. The emergency department will also refer you to a specialist when appropriate. This referral assures that you have the opportunity for follow-up care with a specialist. All of these measure are taken in an effort to provide you with optimal care, which includes your follow-up. Under all circumstances we always encourage you to contact your private physician who remains a resource for coordinating your care. When calling for follow-up care, please make the office aware that this follow-up is from your recent emergency room visit. If for any reason you are refused follow-up, please contact the [facility] Emergency Department at and asked to speak to the emergency department charge nurse. Please follow up with your primary care physician. If you do not have a primary care physician, see below: [facility] [address] [place] [address] [facility] [address] [place], [place] [id number] Please follow-up with your primary care physician. Have any other complaints or concerns please return to the ED. Sepsis Event Note (ED) - Evaluation Sepsis Screening Result: No Definite Risk - Focused Exam Vital Signs: Vital Signs Temp Pulse Resp BP Pulse Ox 09/29/20 09:23 74 17 119/75 99 09/29/20 08:53 81 17 121/78 94 L 09/29/20 08:38 97.3 F 90 20 138/83 99 - My Orders Last 24 Hours: My Active Orders 09/29/20 08:47 Cardiac Monitoring [RC] . DIRECTED Pulse Oximetry [RC] ASDIRECTED Sodium Chloride 0.9% [Saline Flush] 10 ml FLUSH ASDIRECTED PRN Sodium Chloride 0.9% [Saline Flush] 2.5 ml FLUSH ASDIRECTED PRN Saline Lock Insert [OM.PC] Stat 09/29/20 10:00 Sodium Chloride 0.9% [Normal Saline] 1,000 ml IV ASDIRECTED - Assessment/Plan Last 24 Hours: My Active Orders 09/29/20 08:47 Cardiac Monitoring [RC] . DIRECTED Pulse Oximetry [RC] ASDIRECTED Sodium Chloride 0.9% [Saline Flush] 10 ml FLUSH ASDIRECTED PRN Sodium Chloride 0.9% [Saline Flush] 2.5 ml FLUSH ASDIRECTED PRN Saline Lock Insert [OM.PC] Stat 09/29/20 10:00 Sodium Chloride 0.9% [Normal Saline] 1,000 ml IV ASDIRECTED Assessment:: Is a 35-year-old male presents today for body ache and fatigue. Patient dates he was drinking yesterday but does not drink every day. Patient has no signs of alcohol withdrawal. Will obtain labs and give IV fluids and reassess.
[2020-09-29 09:16] LABS: BLOOD UREA NITROGEN,BUN 7 mg/dL (7.0-18.0); CHLORIDE,CL 103 mmol/L (98-107); GLUCOSE RANDOM 157 mg/dL (74-106); LIPASE 76 U/L (73-393); POTASSIUM,K 3.3 mmol/L (3.5-5.1); SODIUM,NA 139 mmol/L (136-148)
[2020-09-29] MEDS ORDERED: Sodium Chloride 0.9% 1,000 ML IV SCH (10:00)
== END 2020-09-29 11:46 | disposition home or self-care (01) ==
LOC: MW.ED 08:35
DX: R52 Pain, unspecified (principal); Z72.0 Tobacco use
CPT/HCPCS: 36415; 80053; 80179; 82550; 83605; 83690; 83735; 84100; 85025; 93005; 99283; J7030; 93010

== ENCOUNTER 2021-02-10 16:30 | Emergency (ER) | payer OTHER ==
[2021-02-10] MEDS ORDERED: Ondansetron 4 MG Tab.DIS PO ONE (16:54)
[2021-02-10] MEDS ORDERED: Famotidine 20 MG Tab PO ONE (16:55)
[2021-02-10] MEDS ORDERED: Dextrose 5%-Lactated Ringers 1,000 ML IV SCH (17:00)
[2021-02-10 17:47] LABS: BLOOD UREA NITROGEN,BUN 8 mg/dL (7.0-18.0); CARBON DIOXIDE,CO2 26.7 mmol/L (21.0-32.0); CHLORIDE,CL 104 mmol/L (98-107); GLUCOSE RANDOM 117 mg/dL (74-106); LIPASE 77 U/L (73-393); POTASSIUM,K 3.4 mmol/L (3.5-5.1); SODIUM,NA 142 mmol/L (136-148)
[2021-02-10] MEDS ORDERED: Potassium Chloride 10% 20 MEQ/15 ML Soln 30 ML UD Cup PO ONE (17:48)
--- NOTE | 2021-02-10 19:08 | CR ---
INDICATION: Wheezing. TECHNIQUE: Chest 1 view. COMPARISON: None. FINDINGS: No focal consolidation, pleural effusion, or pneumothorax. Normal heart size and pulmonary vascularity. The bones are unremarkable. IMPRESSION: No acute cardiopulmonary findings. Dictated by Kayleen Montelongo MD @ 02/10/2021 7:07:[address] Kayleen Montelongo @ Feb 10 2021 7:07PM
--- NOTE | 2021-02-10 19:12 | EDM.PDOC ---
<Dany Aguilar - Last Filed: 02/10/21 19:08> ED HPI GENERAL MEDICAL PROBLEM - General Chief Complaint: General Stated Complaint: TROUBLE BREATHING, POSSIBLE DEHYDRATION Time Seen by Provider: 02/10/21 16:48 - History of Present Illness INITIAL COMMENTS - FREE TEXT/NARRATIVE: CHIEF COMPLAINT(S): Abdominal pain and weakness HISTORY OF PRESENT ILLNESS: This is a 35-year-old man and without any signi ficant past medical history who comes to the emergency department with a chief complaint of abdominal pain and weakness. The patient states that he is experiencing 10 out of 10 epigastric abdominal pain associated with nausea and he did vomit once which was nonbloody and nonbilious. He denies any radiation of this pain. He denies any prior history of pancreatitis, peptic ulcer disease or gastritis. He states that he did have a shot and 2 beers today. He was able to eat which did not exacerbate the pain. He denies any relieving factors. He states that this all started today. He denies any chest pain, shortness of breath, melena, hematochezia, hematemesis or bilious emesis. REVIEW OF SYSTEMS: Constitutional: Denies fever, chills. Eyes: Denies eye pain Ears, Nose, Mouth, & Throat: Denies earache Cardiovascular: Denies chest pain Respiratory: Denies shortness of breath Gastrointestinal: Positive for epigastric abdominal pain, nausea, vomiting. Denies diarrhea, hematochezia, hematemesis, bilious emesis, melena Genitourinary: Denies hematuria Skin:Denies a rash MSK: Denies joint pain Neurological: Denies blurred vision Psychiatric: Denies depression PAST MEDICAL HISTORY: As per history of present illness and as reviewed below otherwise noncontributory. SURGICAL HISTORY: As per history of present illness and as reviewed below otherwise noncontributory. SOCIAL HISTORY: As per history of present illness and as reviewed below otherwise noncontributory. FAMILY HISTORY: As per history of present illness and as reviewed below otherwise noncontributory. EXAMINATION OF ORGAN SYSTEMS/BODY AREAS: Constitutional: Blood pressure is 116/69, heart rate 84, respiratory rate 18 with an oxygen saturation 98% on room air. Temperature 36 General: Intoxicated appearing man who is in no acute distress Psychiatric: Appropriate mood and affect. Eyes: No scleral icterus or conjunctival erythema ENMT: Moist mucous membranes. No pharyngeal erythema Cardiovascular: Regular, rate, and rhythm. No gallops, murmurs, or rubs. Bilateral upper extremity pulses symmetric and intact. No peripheral edema. No JVD. Respiratory: Rhonchorous breath sounds bilaterally. Patient is speaking in full sentences. Gastrointestinal: Soft, tenderness to palpation in the epigastric region. No rebound or guarding. Negative Price's and McBurney's. Normoactive bowel sounds Genitourinary: No suprapubic tenderness Musculoskeletal: Normal range of motion. Skin: No lesions or abrasions. Neurological: Alert, GCS 15 MEDICAL DECISION MAKING AND COURSE IN THE ED WITH INTERPRETATION/REVIEW OF DIAGNOSTIC STUDIES: This is a 35-year-old man without any significant past medical history who comes to the emergency department with acute onset epigastric abdominal pain associated with nausea and vomiting in a patient who is intoxicated with alcohol. At this time differential includes gastritis, peptic ulcer disease, Tara-Jain tear, pancreatitis. Will obtain labs including CBC, CMP, lipase. We will provide the patient with Zofran, famotidine. We will provide the patient with D5 LR. Laboratory: CBC is unremarkable. CMP reveals hypokalemia at 3.4 otherwise unremarkable. Lipase is normal. At the time of signout the patient's chest x-ray was still pending. The patient is pending reevaluation and p.o. toleration. DISPOSITION: Patient was signed out oncoming night physician pending chest x-ray and reevaluation. CONDITION: Fair PROCEDURES: None FINAL IMPRESSION(S)/DIAGNOSES: 1. Acute abdominal pain likely secondary to gastritis 2. Acute alcohol intoxication Dany Aguilar M.D. abdomen Pain Score (Numeric/FACES): 6 - Related Data Allergies Allergy/AdvReac Type Severity Reaction Status Date / Time No Known Allergies Allergy Verified 02/10/21 16:44 Home Meds: Home Meds . [No Known Home Meds] 09/29/20 [History] Past Medical History - Past Health History Medical/Surgical History: Denies Medical/Surgical History HEENT History: Reports: None Cardiovascular History: Reports: None Respiratory History: Reports: None Gastrointestinal History: Reports: None Genitourinary History: Reports: None Musculoskeletal History: Reports: None Neurological History: Reports: None Psychiatric History: Reports: Anxiety Other Psychiatric History: ETOH ABUSE Endocrine/Metabolic History: Reports: None Insulin Pump Model and Plaster Tender: None Hematologic History: Reports: None Immunologic History: Reports: None Oncologic (Cancer) History: Reports: None Dermatologic History: Reports: None - Infectious Disease History Infectious Disease History: Reports: Chicken Pox - Past Surgical History Head Surgeries/Procedures: Reports: None GI Surgical History: Reports: None Other GI Surgeries/Procedures: vomiting blood tonight 10/31/19 Social & Family History - Family History Family Medical History: No Pertinent Family History Oncologic: Reports: Leukemia - Tobacco Use Tobacco Use Status *Q: Current Every Day Tobacco User Years of Tobacco use: 1 Packs/Tins Daily: 20 - Caffeine Use Caffeine Use: Reports: None Caffeine Use Comment: 1 energy drink a day - Recreational Drug Use Recreational Drug Use: No ED ROS GENERAL - Review of Systems Review Of Systems: See Below ED EXAM, GENERAL - Physical Exam Exam: See Below Departure - Departure Disposition: Home, Self-Care 01 Clinical Impression: Gastritis - Discharge Information Instructions: Gastritis, Adult, [id number] Forms: ED Department Discharge Additional Instructions: Your symptoms today were most likely due to irritation of your stomach from the alcohol that you consume. Please avoid any alcohol for the next few days. And please avoid drinking on an empty stomach. Please follow-up with your primary care doctor if you do not have a primary care doctor you can be seen one of the clinics listed below. [facility] - Primary Care [address] [place] [address] [place] [address] The following information is given to patients seen in the emergency department who are being discharged to home. This information is to outline your options for follow-up care. We provide all patients seen in our emergency department with a follow-up referral. The need for follow-up, as well as the timing and circumstances, are variable depending upon the specifics of your emergency department visit. If you don't have a primary care physician on staff, we will provide you with a referral. We always advise you to contact your personal physician following an emergency department visit to inform them of the circumstance of the visit and for follow-up with them and/or the need for any referrals to a consulting specialist. The emergency department will also refer you to a specialist when appropriate. This referral assures that you have the opportunity for follow-up care with a specialist. All of these measure are taken in an effort to provide you with optimal care, which includes your follow-up. Under all circumstances we always encourage you to contact your private physician who remains a resource for coordinating your care. When calling for follow-up care, please make the office aware that this follow-up is from your recent emergency room visit. If for any reason you are refused follow-up, please contact the [facility] Emergency Department at and asked to speak to the emergency department charge nurse. Sepsis Event Note (ED) - Evaluation Sepsis Screening Result: No Definite Risk <Petar Aguirre - Last Filed: 02/10/21 20:25> Course - Vital Signs Last Recorded V/S: Last Vital Signs Temp 97.5 F 02/10/21 20:14 Pulse 81 02/10/21 20:14 Resp 20 02/10/21 20:14 BP 129/71 02/10/21 20:14 Pulse Ox 96 02/10/21 20:14 - Orders/Labs/Meds Orders: Active Orders 24 hr Category Date Time Status Dextrose 5%-Lactated Ringers 1,000 ml Med 02/10/21 17:00 Active IV ASDIRECTED Medication Orders Dextrose/Lactated Ringer's (Dextrose 5%-Lactated Ringers) 1,000 mls @ 999 mls/hr IV ASDIRECTED JACK Last Admin: 02/10/21 17:09 Dose: 999 mls/hr Documented by: GABRIELA Labs: Laboratory Tests 02/10/21 02/10/21 Range/Units 17:10 17:10 WBC 8.31 (4.0-11.0) K/uL RBC 4.69 (4.50-5.90) M/uL Hgb 15.1 (13.0-17.0) g/dL Hct 43.5 (38.0-50.0) % MCV 92.8 (80.0-98.0) fL MCH 32.2 H (27.0-32.0) pg MCHC 34.7 (31.0-37.0) g/dL RDW Std Deviation 44.6 (28.0-62.0) fl RDW Coeff of [place] 13 (11.0-15.0) % Plt Count 273 (150-400) K/uL MPV 9.20 (7.40-12.00) fL Neut % (Auto) 58.3 (48.0-80.0) % Lymph % (Auto) 35.6 (16.0-40.0) % [place] % (Auto) 5.5 (0.0-15.0) % Eos % (Auto) 0.2 (0.0-7.0) % Baso % (Auto) 0.4 (0.0-1.5) % Neut # (Auto) 4.8 (1.4-5.7) K/uL Lymph # (Auto) 3.0 H (0.6-2.4) K/uL [place] # (Auto) 0.5 (0.0-0.8) K/uL Eos # (Auto) 0.0 (0.0-0.7) K/uL Baso # (Auto) 0.0 (0.0-0.1) K/uL Nucleated RBC % 0.0 /100WBC Nucleated RBCs # 0 K/uL Sodium 142 (136-148) mmol/L Potassium 3.4 L (3.5-5.1) mmol/L Chloride 104 (98-107) mmol/L Carbon Dioxide 26.7 (21.0-32.0) mmol/L BUN 8 (7.0-18.0) mg/dL Creatinine 0.9 (0.8-1.3) mg/dL Est Cr Clr Drug Dosing 124.54 mL/min Estimated GFR (MDRD) > 60.0 ml/min Glucose 117 H (74-106) mg/dL Calcium 8.6 (8.5-10.1) mg/dL Total Bilirubin 0.3 (0.2-1.0) mg/dL AST 34 (15-37) IU/L ALT 42 (14-63) IU/L Alkaline Phosphatase 91 (46-116) U/L Total Protein 7.6 (6.4-8.2) g/dL Albumin 4.0 (3.4-5.0) g/dL Globulin 3.6 (2.6-4.0) g/dL Albumin/Globulin Ratio 1.1 (0.9-1.6) Lipase 77 (73-393) U/L Meds: Medications Generic Name Dose Route Start Last Admin Trade Name Henryq PRN Reason Stop Dose Admin Dextrose/Lactated Ringer's 1,000 mls @ 999 mls/hr 02/10/21 17:00 02/10/21 17:09 Dextrose 5%-Lactated Ringers IV 999 mls/hr ASDIRECTED JACK Administration Discontinued Medications Generic Name Dose Route Start Last Admin Trade Name Freq PRN Reason Stop Dose Admin Famotidine 20 mg 02/10/21 16:55 02/10/21 17:09 Famotidine 20 Mg Tab PO 02/10/21 16:56 20 mg ONETIME ONE Administration Ondansetron HCl 4 mg 02/10/21 16:54 02/10/21 17:09 Ondansetron 4 Mg Tab.Dis PO 02/10/21 16:55 4 mg ONETIME ONE Administration Potassium Chloride 40 meq 02/10/21 17:48 02/10/21 18:15 Potassium Chloride 10% 20 Meq/15 Ml Soln 30 Ml Ud Cup PO 02/10/21 17:49 40 meq ONETIME ONE Administration Departure - Departure Time of Disposition: 20:24 Condition: Good - Discharge Information *PRESCRIPTION DRUG MONITORING PROGRAM REVIEWED*: Not Applicable *COPY OF PRESCRIPTION DRUG MONITORING REPORT IN PATIENT TONY: Not Applicable Sepsis Event Note (ED) - Focused Exam Vital Signs: Vital Signs Temp Pulse Resp BP Pulse Ox 02/10/21 20:14 97.5 F 81 20 129/71 96 02/10/21 18:51 69 14 115/69 95 02/10/21 16:40 97.8 F 84 18 116/69 98 - Assessment/Plan Assessment:: 1899: Pt received in signout from Dr. Aguilar. Pt likely with etOH induced gastritis. Labs are good. Pt with some intoxication as well and is resting comfortably. When awake will trial PO and if passes anticipate dc. 2023: Pt is now awake, his is ambulatory with a steady gait. He has tolerated PO and his symptoms have improved. Pt felt stable for dc.
== END 2021-02-10 20:35 | disposition home or self-care (01) ==
LOC: MW.ED 16:30
DX: K29.20 Alcoholic gastritis without bleeding (principal); F10.129 Alcohol abuse with intoxication, unspecified; Z72.0 Tobacco use
CPT/HCPCS: 36415; 71045; 80053; 83690; 85025; 99285; A9270; J7121; 99283

== ENCOUNTER 2021-02-10 22:12 | Emergency (ER) | payer OTHER ==
--- NOTE | 2021-02-10 22:23 | EDM.PDOC ---
ED HPI GENERAL MEDICAL PROBLEM - General Chief Complaint: Gastrointestinal Problem Stated Complaint: WEAKNESS Time Seen by Provider: 02/10/21 22:21 - History of Present Illness INITIAL COMMENTS - FREE TEXT/NARRATIVE: 35yoM who was seen in the ED earlier this evening for epigastric pain felt 2/2 etOH induced gastritis presents with weakness and nausea.. During his previous evaluation cbc was normal, CMP showed minimal hypokalemia to 3.4 but was otherwise unremarkable. Lipase was negative. He was given IVF, potassium repletion zofran and pepcid. He had no further emesis, tolerated PO and was discharged. He states that after discharge he went and ate a burger. This did stay down. He tried to go on a walk with his girlfriend but was having trouble walking and says that he was falling over. He describes ongoing nausea and generalized weakness. He denies any chest or abdominal pain he denies any shortness of breath. He denies any fevers or chills. He denies any other medical problems. He states that he does typically drink on weekends and he reports one beer and a shot of tequila today. abdomen Pain Score (Numeric/FACES): 5 - Related Data Allergies Allergy/AdvReac Type Severity Reaction Status Date / Time No Known Allergies Allergy Verified 02/10/21 16:44 Home Meds: Home Meds Ondansetron [Zofran ODT] 4 mg PO TID PRN #21 tab.dis 02/11/21 [Rx] Past Medical History - Past Health History Medical/Surgical History: Denies Medical/Surgical History HEENT History: Reports: None Cardiovascular History: Reports: None Respiratory History: Reports: None Gastrointestinal History: Reports: None Genitourinary History: Reports: None Musculoskeletal History: Reports: None Neurological History: Reports: None Psychiatric History: Reports: Anxiety Other Psychiatric History: ETOH ABUSE Endocrine/Metabolic History: Reports: None Insulin Pump Model and Straw Hat Washer Operator: None Hematologic History: Reports: None Immunologic History: Reports: None Oncologic (Cancer) History: Reports: None Dermatologic History: Reports: None - Infectious Disease History Infectious Disease History: Reports: Chicken Pox - Past Surgical History Head Surgeries/Procedures: Reports: None GI Surgical History: Reports: None Other GI Surgeries/Procedures: vomiting blood tonight 10/31/19 Social & Family History - Family History Family Medical History: No Pertinent Family History Oncologic: Reports: Leukemia - Caffeine Use Caffeine Use: Reports: None Caffeine Use Comment: 1 energy drink a day ED ROS GENERAL - Review of Systems Review Of Systems: See Below Free Text/Narrative/Comment: General: Per HPI Skin: No rash. Eyes: No vision problems. ENT: No sore throat. Neck: No neck stiffness. Respiratory: No shortness of breath. Cardiac: No chest pain. Gastrointestinal: Per HPI Musculoskeletal: No myalgias/arthralgias. Neurologic: No headache. ED EXAM, GENERAL - Physical Exam Exam: See Below Free Text/Narrative:: General Appearance: No acute distress, appears comfortable Skin: No rash HEENT: Normocephalic/atraumatic, sclera anicteric, mucous membranes dry Neck: Normal range of motion Chest and Lungs: Bilateral breath sounds, clear to auscultation Cardiovascular: Regular rate and rhythm, no murmur Abdomen: Soft, non-tender Musculoskeletal: No edema or tenderness Neurologic: Awake, alert, no obvious deficits, moving all extremities, no tremor, no tongue fasciculations Psychiatric: Appropriate, cooperative #1 Interpretation EKG Date: 02/10/21 Time: 23:19 EKG Interpretation Comments: Normal sinus rhythm rate of 70 normal axis and intervals no acute ischemia. Course - Vital Signs Last Recorded V/S: Last Vital Signs Temp 97.2 F 02/10/21 22:25 Pulse 84 02/10/21 22:25 Resp 18 02/10/21 22:25 BP 127/79 02/10/21 22:25 Pulse Ox 98 02/10/21 22:25 - Orders/Labs/Meds Orders: Active Orders 24 hr Category Date Time Status EKG Documentation Completion [RC] STAT Care 02/10/21 22:32 Active Sodium Chloride 0.9% [Saline Flush] Med 02/10/21 22:29 Active 10 ml FLUSH ASDIRECTED PRN Sodium Chloride 0.9% [Saline Flush] Med 02/10/21 22:29 Active 2.5 ml FLUSH ASDIRECTED PRN Saline Lock Insert [OM.PC] Stat Oth 02/10/21 22:29 Ordered Medication Orders Sodium Chloride (Sodium Chloride 0.9% 10 Ml Syringe) 10 ml FLUSH ASDIRECTED PRN PRN Reason: Keep Vein Open Sodium Chloride (Sodium Chloride 0.9% 2.5 Ml Syringe) 2.5 ml FLUSH ASDIRECTED PRN PRN Reason: Keep Vein Open Labs: Laboratory Tests 02/10/21 Range/Units 22:40 Magnesium 1.9 (1.8-2.4) mg/dL Troponin I <0.050 (0.000-0.056) ng/mL Ethyl Alcohol 237 mg/dL Meds: Medications Generic Name Dose Route Start Last Admin Trade Name Freq PRN Reason Stop Dose Admin Sodium Chloride 10 ml 02/10/21 22:29 Sodium Chloride 0.9% 10 Ml Syringe FLUSH ASDIRECTED PRN Keep Vein Open Sodium Chloride 2.5 ml 02/10/21 22:29 Sodium Chloride 0.9% 2.5 Ml Syringe FLUSH ASDIRECTED PRN Keep Vein Open Discontinued Medications Generic Name Dose Route Start Last Admin Trade Name Freq PRN Reason Stop Dose Admin Multivitamins/Minerals 10 ml/ 1,011.2 mls @ 999 mls/hr 02/10/21 22:30 02/10/21 23:56 Thiamine HCl 100 mg/ Folic IV 02/10/21 23:30 999 mls/hr Acid 1 mg/ Sodium Chloride ONETIME ONE Administration Departure - Departure Time of Disposition: 00:05 Disposition: Home, Self-Care 01 Condition: Good Clinical Impression: Alcohol intoxication - Discharge Information *PRESCRIPTION DRUG MONITORING PROGRAM REVIEWED*: Not Applicable *COPY OF PRESCRIPTION DRUG MONITORING REPORT IN PATIENT TONY: Not Applicable Prescriptions: Ondansetron [Zofran ODT] 4 mg PO TID PRN #21 tab.dis PRN Reason: nausea or vomiting Instructions: Alcohol Intoxication Referrals: PCP,None [Primary Care Provider] - Forms: ED Department Discharge Additional Instructions: Your labs today showed normal heart function and normal electrolytes. Your alcohol level was 0.239 which is three times the legal limit. This is likely the main cause of your weakness dizziness and other symptoms. I encourage you to cut down on how much alcohol you drink at one time. I encourage you to stay hydrated over the next couple days. Your symptoms should improve as the alcohol leaves your system. Sepsis Event Note (ED) - Focused Exam Vital Signs: Vital Signs Temp Pulse Resp BP Pulse Ox 02/10/21 22:25 97.2 F 84 18 127/79 98 - My Orders Last 24 Hours: My Active Orders 02/10/21 22:29 Sodium Chloride 0.9% [Saline Flush] 10 ml FLUSH ASDIRECTED PRN Sodium Chloride 0.9% [Saline Flush] 2.5 ml FLUSH ASDIRECTED PRN Saline Lock Insert [OM.PC] Stat 02/10/21 22:32 EKG Documentation Completion [RC] STAT - Assessment/Plan Last 24 Hours: My Active Orders 02/10/21 22:29 Sodium Chloride 0.9% [Saline Flush] 10 ml FLUSH ASDIRECTED PRN Sodium Chloride 0.9% [Saline Flush] 2.5 ml FLUSH ASDIRECTED PRN Saline Lock Insert [OM.PC] Stat 02/10/21 22:32 EKG Documentation Completion [RC] STAT Assessment:: 35-year-old male without prior medical history presenting with generalized weakness. EKG and troponin pending but ACS is felt very unlikely there is no chest pain or shortness of breath and he has no significant cardiac risk factors. Ongoing dehydration is a consideration hypomagnesemia is a consideration. Ongoing alcohol washout is a consideration. IV fluids thiamine folate will be given and will reassess. Would not repeat the blood work that was done earlier in the day. 2240: Pt ambulates to the bathroom well without assistance. Steady gait True etOH w/d felt unlikely, CIWA score is 1 (for nausea). 2311: Patient's labs are notable for a normal magnesium and a normal troponin. His alcohol remains very elevated at 240. I do think this is the primary cause of his symptoms. Patient CBC normal. It was faxed from the pharmacy due to trouble getting it into [facility].
[2021-02-10] MEDS ORDERED: Sodium Chloride 0.9% 2.5 ML Syringe FLUSH PRN (22:29)
[2021-02-10] MEDS ORDERED: Sodium Chloride 0.9% 10 ML Syringe FLUSH PRN (22:29)
[2021-02-10] MEDS ORDERED: MVI, Adult with Vitamin K 10 ML, Thiamine 100 MG, Folic Acid 1 MG in Sodium Chloride 0.... IV ONE ×4 (22:30)
== END 2021-02-11 00:27 | disposition home or self-care (01) ==
LOC: MW.ED 22:12
DX: F10.129 Alcohol abuse with intoxication, unspecified (principal); Y90.8 Blood alcohol level of 240 mg/100 ml or more
CPT/HCPCS: 36415; 80307; 83735; 84484; 93005; 96365; 99285; J3411; J7030; 93010; 99283

== ENCOUNTER 2021-02-11 07:15 | Emergency (ER) | payer OTHER ==
[2021-02-11] MEDS ORDERED: Iopamidol 755 MG/ML 500 ML Multipack Bottle IVPUSH STA (09:27)
[2021-02-11 09:40] LABS: ACETAMINOPHEN <2.0 ug/mL; BLOOD UREA NITROGEN,BUN 8 mg/dL (7.0-18.0); CARBON DIOXIDE,CO2 25.9 mmol/L (21.0-32.0); CHLORIDE,CL 103 mmol/L (98-107); GLUCOSE RANDOM 106 mg/dL (74-106); POTASSIUM,K 4.3 mmol/L (3.5-5.1); SODIUM,NA 139 mmol/L (136-148)
--- NOTE | 2021-02-11 09:51 | CT ---
INDICATION: Diffuse abdominal pain. Patient shaking. Alcohol. COMPARISON: 07/16/2020. TECHNIQUE: CT of the abdomen and pelvis with IV contrast. 100 cc IV [id number]. FINDINGS: Imaged lung bases are unremarkable. Hepatomegaly is again noted. The gallbladder, spleen, pancreas and adrenal glands are unremarkable. Kidneys enhance symmetrically. No obstructing renal calculus or hydronephrosis. Abdominal aorta is normal in caliber. Bladder is unremarkable. No free fluid or free air. Diverticulosis. No bowel obstruction or inflammation. Negative appendix. No enlarged abdominal or pelvic lymph nodes. Mild degenerative changes at L5-S1 are again noted. IMPRESSION: Hepatomegaly is similar to prior. Otherwise no acute intra-abdominal process. Please note that all CT scans at this facility use dose modulation, iterative reconstruction, and/or weight-based dosing when appropriate to reduce radiation dose to as low as reasonably achievable. Dictated by Ottoniel Vasques MD @ 02/11/2021 9:50:[address] Ottoniel Vasques @ Feb 11 2021 9:50AM
--- NOTE | 2021-02-11 10:58 | EDM.PDOC ---
ED HPI GENERAL MEDICAL PROBLEM - General Chief Complaint: Gastrointestinal Problem Stated Complaint: DEHYRDRATION Time Seen by Provider: 02/11/21 08:31 - History of Present Illness INITIAL COMMENTS - FREE TEXT/NARRATIVE: CHIEF COMPLAINT(S): "I do not have any strength." HISTORY OF PRESENT ILLNESS: This is a 35-year-old man without any significant past medical history who comes to the emergency department with a chief complai nt of "I do not have any strength." The patient states that he has no strength and he is shaking. He states that his stomach feels inflamed but it feels much better than yesterday when I evaluated the patient. He states that he is not been able to sleep. He denies any chest pain, shortness of breath, nausea, vomiting, diarrhea, melena, hematochezia, headache, blurry vision, numbness, tingling, weakness. He states that he just feels like he has no strength. He states that his last drink was at 4 PM yesterday. He denies any Covid exposures. In addition, the patient states that he is in between jobs he does not normally drink as much as he has this week and he is looking forward to his new job. He denies any increased stress. REVIEW OF SYSTEMS: Constitutional: Positive for no strength. Denies fever, chills. Eyes: Denies eye pain Ears, Nose, Mouth, & Throat: Denies earache Cardiovascular: Denies chest pain Respiratory: Denies shortness of breath Gastrointestinal: Denies abdominal pain, nausea, vomiting, diarrhea, hematochezia. Genitourinary: Denies hematuria Skin:Denies a rash MSK: Denies joint pain Neurological: Denies blurred vision, numbness, tingling, weakness Psychiatric: Denies depression PAST MEDICAL HISTORY: As per history of present illness and as reviewed below otherwise noncontributory. SURGICAL HISTORY: As per history of present illness and as reviewed below otherwise noncontributory. SOCIAL HISTORY: As per history of present illness and as reviewed below otherwise noncontributory. FAMILY HISTORY: As per history of present illness and as reviewed below otherwise noncontributory. EXAMINATION OF ORGAN SYSTEMS/BODY AREAS: Constitutional: Blood pressure is 124/83, heart rate 67, respiratory rate 18 with an oxygen saturation 98% on room air. Temperature 36.4 General: Overall well-appearing man who is in no acute distress. Psychiatric: Appropriate mood and affect. Eyes: No scleral icterus or conjunctival erythema ENMT: Moist mucous membranes. No pharyngeal erythema Cardiovascular: Regular, rate, and rhythm. No gallops, murmurs, or rubs. Bilateral upper extremity pulses symmetric and intact. No peripheral edema. No JVD. Respiratory: Lungs clear to auscultation bilaterally. No wheezes, rales, or rhonchi. Gastrointestinal: Soft, non-tender, non-distended. Normoactive bowel sounds Genitourinary: No suprapubic tenderness Musculoskeletal: Normal range of motion. With the arms outstretched the patient does not have any tremors of his hands. There are no tongue fasciculations. Skin: No lesions or abrasions. Neurological: Alert, GCS 15 strength and sensation grossly intact in upper and lower extremities bilaterally MEDICAL DECISION MAKING AND COURSE IN THE ED WITH INTERPRETATION/REVIEW OF DIAGNOSTIC STUDIES: This is a 35-year-old without any past medical history who comes to the emergency department with vague complaint of no strength and shaking. There is no evidence of tremors on patient examination patient overall appears well with normal vital signs. I did review the patient's chart the patient was seen again after I had discharge the patient and an EKG was done which was normal magnesium was completed, troponin was completed all of which were negative and the patient was intoxicated with an alcohol level of 237. At this time it is uncertain as to what is causing the patient's symptoms however this could be secondary to alcoholic ketoacidosis or dehydration given his alcohol intoxication last evening. Will obtain CBC, CMP, TSH, T4 and a serum drug screen. We will obtain a Covid swab. Given the abdominal pain yesterday will obtain a CT abdomen pelvis with contrast for further evaluation. Laboratory: CBC is unremarkable and unchanged, CMP reveals hypocalcemia at 8.2 otherwise unremarkable. TSH and T4 normal. Serum drug screen is negative. Covid is negative. The radiological images were viewed by myself along with reading the report from the radiologist. CT abdomen pelvis with contrast reveals hepatomegaly similar to prior however no acute intra-abdominal process. While the patient was in the emergency department his vitals continue to remain stable. The patient was tolerating p.o. and walking around the department. At this time I do not believe any further work-up is indicated. I did discuss with him it is important to follow-up with his primary care physician and discuss strict return precautions. He was amenable discharge at this time and had no further questions DISPOSITION: The patient was discharged home in stable condition. The patient will follow up with primary care physician in 3 to 5 days CONDITION: Fair PROCEDURES: None FINAL IMPRESSION(S)/DIAGNOSES: 1. Acute weakness Dany Aguilar M.D. - Related Data Allergies Allergy/AdvReac Type Severity Reaction Status Date / Time No Known Allergies Allergy Verified 02/11/21 08:23 Home Meds: Home Meds Ondansetron [Zofran ODT] 4 mg PO TID PRN #21 tab.dis 02/11/21 [Rx] Past Medical History - Past Health History Medical/Surgical History: Denies Medical/Surgical History HEENT History: Reports: None Cardiovascular History: Reports: None Respiratory History: Reports: None Gastrointestinal History: Reports: None Genitourinary History: Reports: None Musculoskeletal History: Reports: None Neurological History: Reports: None Psychiatric History: Reports: Anxiety Other Psychiatric History: ETOH ABUSE Endocrine/Metabolic History: Reports: None Insulin Pump Model and Wood Science Professor: None Hematologic History: Reports: None Immunologic History: Reports: None Oncologic (Cancer) History: Reports: None Dermatologic History: Reports: None - Infectious Disease History Infectious Disease History: Reports: Chicken Pox - Past Surgical History Head Surgeries/Procedures: Reports: None HEENT Surgical History: Reports: None Cardiovascular Surgical History: Reports: None Respiratory Surgical History: Reports: None GI Surgical History: Reports: None Other GI Surgeries/Procedures: vomiting blood tonight 10/31/19 Male Surgical History: Reports: None Endocrine Surgical History: Reports: None Neurological Surgical History: Reports: None Musculoskeletal Surgical History: Reports: None Oncologic Surgical History: Reports: None Dermatological Surgical History: Reports: None Social & Family History - Family History Family Medical History: No Pertinent Family History Oncologic: Reports: Leukemia - Tobacco Use Tobacco Use Status *Q: Current Every Day Tobacco User Years of Tobacco use: 20 Packs/Tins Daily: 1 - Caffeine Use Caffeine Use: Reports: None Caffeine Use Comment: 1 energy drink a day - Recreational Drug Use Recreational Drug Use: No ED ROS GENERAL - Review of Systems Review Of Systems: See Below ED EXAM, GENERAL - Physical Exam Exam: See Below Course - Vital Signs Last Recorded V/S: Last Vital Signs Temp 36.4 C 02/11/21 08:24 Pulse 67 02/11/21 11:23 Resp 18 02/11/21 08:24 BP 128/92 H 02/11/21 11:23 Pulse Ox 95 02/11/21 11:23 - Orders/Labs/Meds Labs: Laboratory Tests 02/11/21 02/11/21 02/11/21 Range/Units 08:58 08:58 09:22 WBC 6.28 (4.0-11.0) K/uL RBC 4.28 L (4.50-5.90) M/uL Hgb 14.1 (13.0-17.0) g/dL Hct 40.0 (38.0-50.0) % MCV 93.5 (80.0-98.0) fL MCH 32.9 H (27.0-32.0) pg MCHC 35.3 (31.0-37.0) g/dL RDW Std Deviation 45.7 (28.0-62.0) fl RDW Coeff of [place] 13 (11.0-15.0) % Plt Count 233 (150-400) K/uL MPV 8.90 (7.40-12.00) fL Neut % (Auto) 63.4 (48.0-80.0) % Lymph % (Auto) 25.6 (16.0-40.0) % [place] % (Auto) 10.5 (0.0-15.0) % Eos % (Auto) 0.3 (0.0-7.0) % Baso % (Auto) 0.2 (0.0-1.5) % Neut # (Auto) 4.0 (1.4-5.7) K/uL Lymph # (Auto) 1.6 (0.6-2.4) K/uL [place] # (Auto) 0.7 (0.0-0.8) K/uL Eos # (Auto) 0.0 (0.0-0.7) K/uL Baso # (Auto) 0.0 (0.0-0.1) K/uL Nucleated RBC % 0.0 /100WBC Nucleated RBCs # 0 K/uL Sodium 139 (136-148) mmol/L Potassium 4.3 (3.5-5.1) mmol/L Chloride 103 (98-107) mmol/L Carbon Dioxide 25.9 (21.0-32.0) mmol/L BUN 8 (7.0-18.0) mg/dL Creatinine 0.9 (0.8-1.3) mg/dL Est Cr Clr Drug Dosing 120.85 mL/min Estimated GFR (MDRD) > 60.0 ml/min Glucose 106 (74-106) mg/dL Calcium 8.2 L (8.5-10.1) mg/dL Magnesium 2.0 (1.8-2.4) mg/dL Total Bilirubin 0.4 (0.2-1.0) mg/dL AST 37 (15-37) IU/L ALT 37 (14-63) IU/L Alkaline Phosphatase 81 (46-116) U/L Total Protein 7.2 (6.4-8.2) g/dL Albumin 3.7 (3.4-5.0) g/dL Globulin 3.5 (2.6-4.0) g/dL Albumin/Globulin Ratio 1.1 (0.9-1.6) Free T4 0.88 (0.76-1.46) ng/dL TSH 3rd Generation 2.21 (0.36-3.74) uIU/mL Salicylates 2.5 (0-20) mg/dL Acetaminophen <2.0 ug/mL SARS-CoV-2 RNA (JUNE) NEGATIVE (NEGATIVE) Meds: Medications Discontinued Medications Generic Name Dose Route Start Last Admin Trade Name Freq PRN Reason Stop Dose Admin Iopamidol 100 ml 02/11/21 09:27 02/11/21 09:27 Iopamidol 755 Mg/Ml 500 Ml Multipack Bottle IVPUSH 02/11/21 09:28 100 ml ONETIME STA Administration Departure - Departure Time of Disposition: 10:56 Disposition: Home, Self-Care 01 Condition: Fair Clinical Impression: Weakness - Discharge Information *PRESCRIPTION DRUG MONITORING PROGRAM REVIEWED*: No *COPY OF PRESCRIPTION DRUG MONITORING REPORT IN PATIENT TONY: No Instructions: Alcohol Abuse and Dependence Information, Adult, Tremor, Weakness Referrals: PCP,None [Primary Care Provider] - Forms: ED Department Discharge Additional Instructions: You were evaluated today on an emergent basis. Throughout the last 3 visits your laboratory work-up which includes your thyroid your electrolytes your blood levels, & for heart attack and Covid were all normal. The only abnormal value was that your alcohol was elevated at 237. This is 4 times the legal limit. Your chest x-ray and your CT did not reveal any abnormalities. I did have a discussion with you regarding alcohol use and you stated that you do not drink alcohol on a regular basis therefore I do not believe the symptoms you are experiencing are secondary to alcohol withdrawal. As discussed this could be due to the change in jobs and the stress associated with that. I do recommend that you follow-up with your primary care physician which is listed below within 3 to 5 days for reevaluation. As discussed this could be essential tremor which is treated with a beta-jay and this needs to be discussed with your primary care physician. If you have any worsening symptoms you are welcome to return to the emergency department. [facility] [address] [place] [id number] [address] The patient is informed of any results of their evaluation and diagnostic workup and all questions are answered. They are given discharge instructions and return precautions. The patient is stable for discharge. The patient states they understand and agree with the plan and that they will return if their symptoms get worse or if they have any new concerns. The following information is given to patients seen in the emergency department who are being discharged to home. This information is to outline your options for follow-up care. We provide all patients seen in our emergency department with a follow-up referral. The need for follow-up, as well as the timing and circumstances, are variable depending upon the specifics of your emergency department visit. If you don't have a primary care physician on staff, we will provide you with a referral. We always advise you to contact your personal physician following an emergency department visit to inform them of the circumstance of the visit and for follow-up with them and/or the need for any referrals to a consulting specialist. The emergency department will also refer you to a specialist when appropriate. This referral assures that you have the opportunity for follow-up care with a specialist. All of these measure are taken in an effort to provide you with opti mal care, which includes your follow-up. Under all circumstances we always encourage you to contact your private physician who remains a resource for coordinating your care. When calling for follow-up care, please make the office aware that this follow-up is from your recent emergency room visit. If for any reason you are refused follow-up, please contact the [facility] Emergency Department at and asked to speak to the emergency department charge nurse. Sepsis Event Note (ED) - Evaluation Sepsis Screening Result: No Definite Risk
== END 2021-02-11 11:24 | disposition home or self-care (01) ==
LOC: MW.ED 07:15
DX: R53.1 Weakness (principal); Z72.0 Tobacco use; Z20.822 Contact with and (suspected) exposure to COVID-19
CPT/HCPCS: 36415; 74177; 80053; 80143; 80179; 83735; 84439; 84443; 85025; 87635; 99285; Q9967; 99283; U0002

== ENCOUNTER 2022-03-04 23:42 | Emergency (ER) | payer OTHER ==
[2022-03-04] MEDS ORDERED: Sodium Chloride 0.9% 10 ML Syringe FLUSH PRN (23:44)
[2022-03-04] MEDS ORDERED: Sodium Chloride 0.9% 2.5 ML Syringe FLUSH PRN (23:44)
[2022-03-04] MEDS ORDERED: Ondansetron 4 MG/2 ML SDV IVPUSH ONE (23:57)
[2022-03-05] MEDS ORDERED: Ondansetron 4 MG Tab.DIS PO ONE (00:40)
[2022-03-05] MEDS ORDERED: Alum Hydro/Mag Hydro/Simeth XS 15 ML, Lidocaine 2% 5 ML PO ONE ×4 (01:21→02:32)
[2022-03-05] MEDS ORDERED: Ondansetron 4 MG/2 ML SDV IVPUSH ONE (01:21)
[2022-03-05 01:40] LABS: CARBON DIOXIDE,CO2 25.3 mmol/L (21.0-32.0); POTASSIUM,K 3.1 mmol/L (3.5-5.1)
[2022-03-05] MEDS ORDERED: Pantoprazole 40 MG in Sodium Chloride 0.9% 10 ML IVPUSH ONE (02:31)
== END 2022-03-05 03:02 | disposition home or self-care (01) ==
LOC: MW.ED 23:42
DX: K29.20 Alcoholic gastritis without bleeding (principal); K21.9 Gastro-esophageal reflux disease without esophagitis; Z72.89 Other problems related to lifestyle; Z79.899 Other long term (current) drug therapy
CPT/HCPCS: 36415; 71045; 80053; 83690; 84484; 85025; 93005; 96374; 96375; 99285; A9270; C9113; J2405; J3490

== ENCOUNTER 2022-03-05 05:31 | Emergency (ER) | payer OTHER ==
[2022-03-05] MEDS ORDERED: Alum Hydro/Mag Hydro/Simeth XS 15 ML, Lidocaine 2% 5 ML PO ONE ×2 (05:46)
[2022-03-05] MEDS ORDERED: Ondansetron 4 MG Tab.DIS PO ONE (05:46)
== END 2022-03-05 06:26 | disposition home or self-care (01) ==
LOC: MW.ED 05:31
DX: K21.00 Gastro-esophageal reflux disease with esophagitis, without bleeding (principal); Z79.899 Other long term (current) drug therapy
CPT/HCPCS: 93005; 99284; A9270; 93010

== ENCOUNTER 2022-03-05 10:18 | Emergency (ER) | payer OTHER ==
[2022-03-05] MEDS ORDERED: Sodium Chloride 0.9% 1,000 ML IV ONE ×2 (10:54→12:31)
[2022-03-05] MEDS ORDERED: Sodium Chloride 0.9% 10 ML Syringe FLUSH PRN (10:54)
[2022-03-05] MEDS ORDERED: Sodium Chloride 0.9% 2.5 ML Syringe FLUSH PRN (10:54)
[2022-03-05 11:18] LABS: CARBON DIOXIDE,CO2 29.3 mmol/L (21.0-32.0); POTASSIUM,K 3.5 mmol/L (3.5-5.1)
[2022-03-05] MEDS ORDERED: Iopamidol 755 MG/ML 500 ML Multipack Bottle IVPUSH STA (12:26)
[2022-03-05] MEDS ORDERED: Pantoprazole 40 MG in Sodium Chloride 0.9% 10 ML IVPUSH ONE (13:21)
== END 2022-03-05 13:56 | disposition home or self-care (01) ==
LOC: MW.ED 10:18
DX: K29.20 Alcoholic gastritis without bleeding (principal); F10.10 Alcohol abuse, uncomplicated; R42 Dizziness and giddiness
CPT/HCPCS: 36415; 71275; 74177; 80053; 82947; 83690; 84484; 85025; 85379; 85610; 93005; 96361; 96374; 99285; C9113; J3490; J7030; Q9967